=== PATIENT | male | born 1950 | race Caucasian/White ===

== ENCOUNTER 2020-08-25 07:30 | Outpatient (REF) | payer MEDICARE, SELFPAY ==
--- NOTE | 2020-08-25 07:37 | FL_ITS ---
EXAMINATION: XR FLUOROSCOPY WITH IMAGES CLINICAL INFORMATION: G89.4 - Chronic pain syndrome COMPARISON: MRI lumbar spine 08/06/2019 TECHNIQUE: Fluoroscopy performed by Michelle Suero NP. Fluoroscopy time: 0.3 minutes DAP: 2.0 Gycm2 Images: 1 FINDINGS: There is a spinal needle overlying the outer aspect left L5-S1 neural foramen. Contrast is seen in the nerve sheath with transforaminal epidural extension. There are degenerative disc changes L4-L5 and L5-S1. FL/FL guidance in treatment room IMPRESSION: Fluoroscopy for pain management procedure.
== END 2020-08-25 07:31 | disposition home or self-care (01) ==
LOC: HO.RADIR 07:30
PROVIDERS: Visit Provider Anesthesiology
DX: M51.36 Other intervertebral disc degeneration, lumbar region (principal); G89.4 Chronic pain syndrome
CPT/HCPCS: 64483; J3300; Q9967

== ENCOUNTER → 2020-10-08 09:24 | Outpatient (BNVA) | payer MEDICARE, SELFPAY | PROVIDERS: PCP Internal Medicine; Visit Provider Anesthesiology | DX: M47.817 Spondylosis without myelopathy or radiculopathy, lumbosacral region (principal); G89.4 Chronic pain syndrome | CPT/HCPCS: Q3014 ==

== ENCOUNTER 2020-11-09 13:22 | Emergency (ER) | payer MEDICARE, SELFPAY ==
--- NOTE | ~2020-11-09 | XR_ITS ---
EXAMINATION: XR CHEST XR PELVIS AND HIP, LEFT XR KNEE, LEFT CLINICAL INFORMATION: Fall with hip pain. COMPARISON: Chest radiograph 03/17/2015, left hip 02/20/2017. TECHNIQUE: Single view chest, 2 views left knee, single view pelvis with 3 additional views left hip. FINDINGS: CHEST: Once again seen are findings consistent with extensive emphysema. New since the prior study is a thickened linear density seen in the right upper lobe laterally. A mass lesion in this area cannot be excluded. The heart size is normal. LEFT KNEE: No effusion is present. No traumatic injury is seen. Vascular calcifications are present. LEFT HIP: There is a left femoral neck fracture with superior subluxation of the distal fracture fragment with some varus angulation. No other associated fractures are seen. Marked degenerative changes present in the lower visualized spine. Mild degenerative changes present at the hip joints. Extensive vascular calcifications are seen. XR/XR knee LT 2V IMPRESSION: 1. Left femoral neck fracture as described above. 2. Severe COPD with new opacity in the right upper lobe laterally. CT is recommended for further evaluation.
--- NOTE | ~2020-11-09 | XR_ITS ---
EXAMINATION: XR CHEST XR PELVIS AND HIP, LEFT XR KNEE, LEFT CLINICAL INFORMATION: Fall with hip pain. COMPARISON: Chest radiograph 03/17/2015, left hip 02/20/2017. TECHNIQUE: Single view chest, 2 views left knee, single view pelvis with 3 additional views left hip. FINDINGS: CHEST: Once again seen are findings consistent with extensive emphysema. New since the prior study is a thickened linear density seen in the right upper lobe laterally. A mass lesion in this area cannot be excluded. The heart size is normal. LEFT KNEE: No effusion is present. No traumatic injury is seen. Vascular calcifications are present. LEFT HIP: There is a left femoral neck fracture with superior subluxation of the distal fracture fragment with some varus angulation. No other associated fractures are seen. Marked degenerative changes present in the lower visualized spine. Mild degenerative changes present at the hip joints. Extensive vascular calcifications are seen. XR/XR chest 1V IMPRESSION: 1. Left femoral neck fracture as described above. 2. Severe COPD with new opacity in the right upper lobe laterally. CT is recommended for further evaluation.
--- NOTE | ~2020-11-09 | XR_ITS ---
EXAMINATION: XR CHEST XR PELVIS AND HIP, LEFT XR KNEE, LEFT CLINICAL INFORMATION: Fall with hip pain. COMPARISON: Chest radiograph 03/17/2015, left hip 02/20/2017. TECHNIQUE: Single view chest, 2 views left knee, single view pelvis with 3 additional views left hip. FINDINGS: CHEST: Once again seen are findings consistent with extensive emphysema. New since the prior study is a thickened linear density seen in the right upper lobe laterally. A mass lesion in this area cannot be excluded. The heart size is normal. LEFT KNEE: No effusion is present. No traumatic injury is seen. Vascular calcifications are present. LEFT HIP: There is a left femoral neck fracture with superior subluxation of the distal fracture fragment with some varus angulation. No other associated fractures are seen. Marked degenerative changes present in the lower visualized spine. Mild degenerative changes present at the hip joints. Extensive vascular calcifications are seen. XR/XR hip LT w PEL1V IMPRESSION: 1. Left femoral neck fracture as described above. 2. Severe COPD with new opacity in the right upper lobe laterally. CT is recommended for further evaluation.
[2020-11-09 15:50] VITALS: BP 141/82; PULSE 83; RESP 18; TEMP 36.5; O2SAT 100; BMI 17.2
--- NOTE | 2020-11-09 18:48 | ED.FALL ---
HPI - Fall General Chief Complaint: Fall Stated Complaint: feet/ankle pain/swelling Time Seen by Provider: 11/09/20 16:24 Source: patient Mode of arrival: wheelchair Limitations: no limitations History of Present Illness HPI Narrative: 69-year-old male with a past medical history of hypertension, degenerative disc disease of the lumbar spine, chronic pain syndrome and knee arthritis presenting to the ED with left hip pain after his leg gave out 3 weeks ago when he was in his kitchen he fell onto his left hip and since then has been having pain and has been limping. Denies head injury or loss of consciousness or being on any blood thinners. Denies any other injuries complaints or concerns at this time. complaint: fall Onset (ago): week(s) (Three weeks ago) Fall from: standing Fall witnessed: no Place fall occurred: home Loss of consciousness: none Prolonged down time: no Symptoms prior to fall: none Context: other (Due to degenerative disc of lumbar spine and chronic pain syndrome per patient) Location of injury: other (Left hip and pelvis) Related Data Home Medications Medication Instructions Recorded Confirmed gabapentin 300 mg capsule 300 mg PO TID 08/12/20 08/12/20 ibuprofen 600 mg tablet 600 mg PO TID 08/12/20 08/12/20 triamcinolone acetonide-l.s.b. 0.5 applic TOPICAL .THREE TIMES A DAY 08/12/20 08/12/20 % topical cream PRN Previous Rx's Medication Instructions Recorded diclofenac sodium 25 mg 25 mg PO DAILY #30 tab 07/29/20 tablet,delayed release lisinopril 40 mg tablet 40 mg PO DAILY #90 cap 10/04/20 tizanidine 4 mg tablet 4 mg PO TID PRN 30 Days #90 tab 10/08/20 Allergies Allergy/AdvReac Type Severity Reaction Status Date / Time codeine [CODEINE] Allergy Intermediate GI UPSET Verified 11/09/20 15:50 Penicillins [PENICILLINS] Allergy Intermediate ITCHY Verified 11/09/20 15:50 Review of Systems Review of Systems: Constitutional : No changes in activity, No lethargy, No recent prior head injury, No agitation, No increased fussiness ENT/Mouth : No Ear Pain, No Nasal discharge/drainage Eyes: No Eye Pain, No Swelling, No Redness, No Foreign Body, No Vision Changes Cardiovascular : No Chest Pain, No SOB Respiratory : No Cough Gastrointestinal : No Nausea, No Vomiting, No abdominal Pain Genitourinary : No Dysuria, No Urinary Frequency, No Urinary Incontinence, No Urgency, No Flank Pain Musculoskeletal : + joint pain, No neck stiffness, No back pain/injury Skin : No lacerations Neuro : No unsteady gait, No Paresthesias, No Loss of Consciousness, No altered mental status, No Headache Yes all other systems are reviewed and are negative [facility] Past Medical History Attestation statement: The following information was validated with the patient. Medical History Disc degeneration, lumbar Hypertension Knee osteoarthritis Spondylosis of lumbosacral region Surgical History H/O rectal polypectomy Family History Family History Father Heart failure Mother Colon cancer Maternal Aunt Skin cancer Social History Social History Alcohol intake: never Smoking Status: Former smoker Advance Directives: No Advance Directives Information Provided: Yes Physical Exam Vital Signs: Vital Signs: Last Vital Signs Temp 97.7 F 11/09/20 15:50 Pulse 83 11/09/20 15:50 Resp 18 11/09/20 15:50 BP 141/82 H 11/09/20 15:50 Pulse Ox 100 11/09/20 15:50 Body Mass Index 17.2 vital signs have been reviewed as normal and appeared to be correct. Blood pressure normal. Heart rate normal. Respiration rate normal. Temperature normal. Oxygen saturation normal. Appearance: Alert. Oriented X3. No acute distress. Head: Normal external exam. Normocephalic. Atraumatic. Eyes: PERRLA. EOMI. Conjunctiva and sclera normal. Eyelids normal. ENT: Pharynx normal. Uvula midline. Moist mucous membranes. Neck: Normal inspection. Neck supple. FROM. No adenopathy. Thyroid Normal. No meningeal signs. No neck mass noted. CVS: Normal heart rate and rhythm. Heart sound normal. No murmurs noted. Pulses normal throughout. Respiratory: No respiratory distress. Painless inspiration. Breath sounds normal. No wheezes/rales/rhonchi noted. Chest nontender. No accessory muscle usage noted or decreased air movement noted. Back: No CVA tenderness. Full range of motion noted. Skin: Skin warm and dry. Normal skin color. Normal skin turgor. No rashes/lesions/lacerations noted. Extremities: Patient with tenderness to palpation to left hip joint with limited range of motion questioning fracture. The leg is also shortened with internal rotation noted. Patient mild tenderness to palpation of left knee. No laxity noted. No obvious deformities noted. Patient has full range of motion of the left knee. No lower extremity edema. No calf tenderness noted. Otherwise all other Extremities exhibit normal range of motion and nontender. Neuro: Oriented X 3. No motor deficit. No sensory deficit. Reflexes normal. Patient has a limping gait. Course Course Course Narrative: 69-year-old male presenting to the ED with left hip pain after he fell x3 weeks ago in his kitchen denied head injury or loss of consciousness and is not on any blood thinners. Discharge Plan Discharge Clinical Impression: Closed fracture of neck of left femur, Fall, Left against medical advice, Opacity of lung on imaging study Patient Disposition: Left Against Medical Advice Instructions: Against Medical Advice (ED), Hip Fracture (ED) Additional Instructions: You have a left femoral neck hip fracture and it was recommended that you be admitted today for medical clearance and then be placed on nothing by mouth for approximately 6-12 hours so that you can have surgery to her left hip although you are refusing and requesting to leave against medical advice. You also had a chest x-ray which revealed severe COPD with a new opacity in the right upper lobe laterally they recommending a CT scan for further evaluation and treatment. Although you are refusing all labs and any further imaging and admission please follow-up with her primary care provider. I gave you the number for the orthopedic surgeon Dr. Fisher who recommended you have surgery and be admitted tonight. Call him and follow-up. Return if any new or worsening symptoms or if you decide that you want surgery. Prescriptions: No Action diclofenac sodium 25 mg tablet,delayed release (DR/EC) 25 mg PO DAILY Qty: 30 RF: 0 lisinopril 40 mg tablet 40 mg PO DAILY Qty: 90 RF: 1 ibuprofen 600 mg tablet 600 mg PO TID RF: 0 gabapentin 300 mg capsule 300 mg PO TID RF: 0 triamcinolone acetonide-l.s.b. 0.5 % cream topical .THREE TIMES A DAY PRNRF: 0 tizanidine 4 mg tablet 4 mg PO TID PRN (Reason: muscle spasticity) 30 Days Qty: 90 RF: 12 Referrals: Dimas Fisher MD [Physician] - 1 week (Call tomorrow to make a follow-up appointment within the next few weeks although it was recommended by Dr. Fisher and I that you be admitted for surgery although you refused) Interventions: ED Discharge Assessment Last Done: 11/09/20 19:28 Discharge Date/Time: 11/09/20 19:29 Print Language: Kinyarwanda
--- NOTE | 2020-11-09 19:30 | PC.NURSE ---
PT SIGNED OUT AMA AND LEFT ED IN W/C. PT UNDERSTOOD RISKS OF LEAVING AGAINST MEDICAL ADVISE. PT VERBALLY STATED PT UNDERSTOOD RISKS AND LEFT IN W/C TO WR.
== END 2020-11-09 19:29 | disposition left against medical advice (07) ==
PROVIDERS: Emergency Provider Internal Medicine; PCP Internal Medicine
DX: S72.002A Fracture of unspecified part of neck of left femur, initial encounter for closed fracture (principal); W17.89XA Other fall from one level to another, initial encounter; R91.8 Other nonspecific abnormal finding of lung field; I10 Essential (primary) hypertension; M51.36 Other intervertebral disc degeneration, lumbar region; Y93.89 Activity, other specified; Y92.010 Kitchen of single-family (private) house as the place of occurrence of the external cause; Y99.9 Unspecified external cause status
CPT/HCPCS: 71045; 73502; 73560; 99283

== ENCOUNTER → 2020-11-12 14:02 | Outpatient (BNVA) | payer MEDICARE, SELFPAY | PROVIDERS: PCP Internal Medicine; Visit Provider Orthopaedic Surgery ==

== ENCOUNTER 2020-11-12 15:11 | Inpatient (IN) | payer MEDICARE, SELFPAY ==
--- NOTE | 2020-11-12 | ECG_ITS ---
Test Reason : Pre op Blood Pressure : / mmHG Vent. Rate : 093 BPM Atrial Rate : 093 BPM P-R Int : 144 ms QRS Dur : 084 ms QT Int : 382 ms P-R-T Axes : 091 082 077 degrees QTc Int : 474 ms Sinus rhythm with Premature atrial complexes and Premature ventricular complexes Possible Left atrial enlargement Nonspecific ST abnormality Abnormal ECG No previous ECGs available Referred By: [facility] Electronically Signed By:CYRUS LINDA MD
--- NOTE | ~2020-11-12 | CT_ITS ---
EXAMINATION: CT CHEST WITHOUT CONTRAST CLINICAL INFORMATION: Right upper lobe opacity seen on recent chest radiographs, follow-up. COMPARISON: Chest radiographs dated 11/09/2020 and 03/17/2015. TECHNIQUE: Multidetector volumetric CT imaging of the chest was done. Axial MIP volume rendering provided. Sagittal and coronal reformatted images were obtained. This CT examination was performed using dose optimization techniques as appropriate, variously including the following: *Automated exposure control *Adjustment of mA and/or kV according to patient size (this includes techniques or standardized protocols for targeted exams where dose is matched to indication/reason for exam; i.e. extremities or head) *Use of iterative reconstruction technique DLP: 192 mGy-cm FINDINGS: LUNGS/PLEURA/AIRWAYS: Moderate to severe upper lobe predominant centrilobular emphysema is seen right greater than left. An irregular spiculated lesion is seen in the right apex measuring approximately 2.8 x 1.9 x 1.6 cm (image 45, series 6; image 13, series 10). A similar appearing subpleural lesion is seen laterally extending to the adjacent minor and major fissures.. A central component measures approximately 3.1 x 1.7 x 2.4 cm (image 25, series 6; image 29, series 10). A smaller, more linear appearing lesion posterior medially in the right upper lobe at the level the major fissure measures approximately 2.2 x 1.5 x 0.9 cm (image 51, series 6; image 30, series 10). An irregular curvilinear lesion is seen anterolaterally in the left upper lobe (image 29, series 10; image 23, series 6). Linear scarring/atelectasis is seen inferiorly in the lingula as well as at the lung bases. There are no pleural effusions. The airways are patent. MEDIASTINUM: The thyroid gland is unremarkable. Mild to moderate atherosclerosis is seen in the thoracic aorta. The ascending aorta measures up to 4.0 cm in AP dimension (image 37, series 3). No mediastinal or hilar lymphadenopathy. Moderate to severe coronary artery calcifications. No pericardial effusions. AXILLA: No lymphadenopathy. UPPER ABDOMEN: Unremarkable. OSSEOUS STRUCTURES: Generalized osteopenia and mild to severe multilevel degenerative disc disease. Increased thoracic kyphosis. No acute or suspicious abnormality. CT/CT chest wo con IMPRESSION: 1. Irregular spiculated lesions in the upper lobes as detailed above are nonspecific. This could represent chronic scarring/atelectasis, but malignancy cannot be excluded. The findings in the right upper lobe correlate with recent radiographic findings. Further evaluation with a PET CT scan is recommended. 2. Dilatation of the ascending aorta up to 4.0 cm.
--- NOTE | ~2020-11-12 | XR_ITS ---
EXAMINATION: XR PELVIS CLINICAL INFORMATION: Status post left hip hemiarthroplasty COMPARISON: 11/09/2020 TECHNIQUE: AP view of the pelvis. FINDINGS: The patient has undergone interval left hip hemiarthroplasty. Hardware appears well seated. There are expected postoperative changes including soft tissue gas and overlying skin vince. Mild to moderate degenerative arthrosis of the right hip is present. No fractures of the visualized pubic rami. XR/XR pelvis 1-2V IMPRESSION: Expected postoperative appearance status post left hip hemiarthroplasty.
[2020-11-12 16:00] VITALS: BP 180/78; PULSE 98; RESP 18; TEMP 36.9; O2SAT 98
[2020-11-12 16:15] VITALS: BMI 17.2
[2020-11-12 16:25] LABS: COVID-19 Test Negative (Negative); IDNOW Serial# 9DD0AD1C
--- NOTE | 2020-11-12 17:41 | P.CONIM_ITS ---
History of Present Illness Data of Consult Service Date: 11/12/20 Requesting physician: Dimas Fisher Primary Care Provider: Yasir Ibarra MD HPI Reason for consult: Pre op evaluation 69 year male with HTN who about 3 weeks ago sustained a fall on his left hip when his leg gave out. He has been having steady pain since and could not take it anymore so he came to the ED on and was advised admission and operative repair but left AMA, citing they didn't treat me right . He saw orthopedist in [place] today and was directly admitted. He has has pain in the left hip. No prior major surgery, no chest pain and reported no PENA, however he notes swelling in the legs that are chronic. Xray on 11/09/20 showed a left femoral neck fracture. CXR on 11/09/20 showed new opacity of left upper lobe. CT was recommended. There is no ECG on record. Review of Systems Review of Systems: Gen: no fever Resp: no sob, no cough CV: no chest, no PENA, no leg edema GI: No n/v, no abd pain Neuro: No confusion [place]: left hip pain [facility] Medical History (Updated 11/13/20 @ 09:18 by Chin Koch MD) COPD (chronic obstructive pulmonary disease) Disc degeneration, lumbar Hypertension Knee osteoarthritis Pulmonary nodule Spondylosis of lumbosacral region Functional capacity: independent ambulation Family History Father Heart failure Mother Colon cancer Maternal Aunt Skin cancer Surgical History H/O rectal polypectomy Social History Household Members: Spouse Housing: House Do you presently have visiting nurse or other home services: No Alcohol intake: never Smoking Status: Current every day smoker Tobacco Type: Cigarette Cigarettes Per Day: 12 Years Smoked: 50 Smoked in Last 30 Days: Yes Patient Interested in Nicotine Replacement: Yes Patient Given Instructions on How to Stop Smoking: No Use of substances other than those prescribed or required for medical reasons: No Have you been hit, kicked, punched, or otherwise hurt by someone within the past year? If so, by whom?: No Do you feel safe in your current relationship?: Yes Is there a partner from a previous relationship who is making you feel unsafe now?: No Are you made to feel afraid or neglected: No [facility] Practices: [employer], if needed, wants a Lacrosse Coach to give him his last rights. Advance Directives: No Advance Directives Information Provided: No Do you have thoughts of harming others: None Do you have a plan to hurt others: No Plan Recently lost weight without trying: Yes service: No Current occupational status: retired Meds Allergies Allergy/AdvReac Type Severity Reaction Status Date / Time codeine [CODEINE] Allergy Intermediate GI UPSET Verified 11/09/20 15:50 Penicillins [PENICILLINS] Allergy Intermediate ITCHY Verified 11/09/20 15:50 Active Medications: Current Medications Generic Name Dose Route Start Last Admin Trade Name Freq PRN Reason Stop Dose Admin Acetaminophen 325 mg 11/12/20 15:02 Acetaminophen 325 Mg Tablet PO Q4H PRN Pain, Mild (Pain Scale 1-3) Hydromorphone HCl 2 mg 11/12/20 15:02 Hydromorphone Hcl 2 Mg Tablet PO Q4H PRN Pain, Severe (Pain Scale 7-10) Cefazolin Sodium/Dextrose 2 gm in 50 mls @ 100 mls/hr 11/13/20 06:00 Ancef IV 11/13/20 23:59 PREOP [facility] Ondansetron HCl 4 mg 11/12/20 15:07 Ondansetron Hcl 4 Mg/2 Ml Vial IVPUSH Q4H PRN Nausea Oxycodone HCl 5 mg 11/12/20 15:02 Oxycodone Hcl Immed Release 5 Mg Tablet PO Q4H PRN Pain, Moderate (Pain Scale 4-6 Oxycodone HCl 10 mg 11/12/20 21:00 Oxycodone Hcl Er 10 Mg Tab.Er.12h PO BID [facility] Home Medications Medication Instructions Recorded Confirmed Last Taken Type gabapentin 300 mg capsule 300 mg PO DAILY@1700 08/12/20 11/12/20 Unknown History ibuprofen 600 mg tablet 600 mg PO TID PRN 08/12/20 11/12/20 Unknown History Physical Exam Vital Signs and Narrative: Vital Signs: Last Vital Signs Temp 98.5 F 11/12/20 16:00 Pulse 98 11/12/20 16:00 Resp 18 11/12/20 16:00 BP 180/78 H 11/12/20 16:00 Pulse Ox 98 11/12/20 16:00 Body Mass Index 17.2 Constitutional Awake and Alert, No apparent distress, cachectic Neck Supple, No lymphadenopathy Cardiovascular RRR, No M/R/G, S1 S2, No S3 S4, 2+ pedal edema Respiratory Lungs clear, No respiratory distress Gastrointestinal Non tender, Non-distended Skin No rash Neurological Alert & oriented x3 Psychological Appropriate affect Musck sk-shortenes left leg Results Labs CBC and Chem 7: 11/13/20 05:54 11/13/20 05:54 Labs: Laboratory Results - last 24 hr 11/12/20 11/12/20 15:41 Unknown COVID-19 ([facility]) Negative COVID-19 Clin Com See Note Blood Type O Positive Antibody Screen NEGATIVE Assessment and Plan (1) Knee osteoarthritis: Status: Acute (2) Spondylosis of lumbosacral region: Status: Acute (3) Disc degeneration, lumbar: Status: Acute (4) Chronic pain syndrome: Status: Acute (5) Hypertension: Status: Acute 69 male with left hip fracture 3 weeks agoa, left AMA 3 days ago, evaluated by ortho in the office and admitted now and is planned to have surgery 1. Hip fracture--before surgery, we should do an ECG, get routine labs including CBC, chemistry, if all unremarkable then should proceed to surgery 2. Leg edema--no other stigmata of heart failure--check BNP and if elevated should have an echo and cardiology evaluation before surgery 3. Left upper lobe oppacity seen on CXR 11/09/20--Should have a CT done 4. HTN--BP is high, no sure if took meds today, can give PRN hydralazine until labs are done. Reconcile meds 5. Neuropathy--Gabpentin 6. History of smoking- Nicotine patch 7. h/o alcohol use it doesn't sound like he drink too much but add CIWA 8. Mild to moderate protein caloary malnutrition--high protein diet or add ensure 9. Severe COPD--not on inhalers, smokes alot, updraft PRN, pulmonary eval prior to surgery, high risk for pulmonary complications Unless all the above recommendation labs, imaging are done and reviewed this patient is not clear for surgery
[2020-11-12] MEDS: oxyCODONE HCl Immed Release 5 MG TABLET PO (18:29)
[2020-11-12] MEDS: Nicotine 14 MG PATCH.TD24 TRANSDERMA (18:29)
[2020-11-12 18:31] VITALS: BP 156/84; PULSE 88
[2020-11-12 19:10] LABS: Hematocrit 28.9 % (42-52); Hemoglobin 10.6 g/dl (14.0-18.0); Mean Corpuscular HGB Conc 36.7 g/dl (31.0-36.0); Mean Corpuscular Hemoglobin 35.1 pg (27.0-33.0); Mean Corpuscular Volume 95.7 fL (80-98); Mean Platelet Volume 8.8 fL (9.4-12.4); Platelet Count 251 X10*3/uL (160-400); Red Blood Count 3.02 X10*6/uL (4.60-5.80); Red Cell Distribution Width 11.9 % (11.0-16.0); White Blood Count 6.9 X10*3/uL (4.8-10.8)
[2020-11-12 19:14] VITALS: BP 163/77; PULSE 89; RESP 18; TEMP 36.8; O2SAT 100
[2020-11-12 19:16] LABS: INTERNATIONAL NORM RATIO 1.1 (0.9-1.1); Prothrombin Time 12.7 SEC (10.8-13.0)
[2020-11-12 19:42] LABS: B Type Natriuretic Peptide 93 pg/mL (<100)
[2020-11-12 19:46] LABS: Anion Gap 12 (12-20); Blood Urea Nitrogen 10 mg/dL (9-16); Carbon Dioxide 26 mmol/L (22-29); Chloride 87 mmol/L (96-108); Creatinine Clr Calc Pharmacy 69.5; Estimated Glomerular Filt Rate > 60; Glucose Random 105 mg/dL (60-115); Potassium 4.4 mmol/L (3.3-5.1); Sodium 121 mmol/L (135-145)
--- NOTE | 2020-11-12 20:14 | P.EN_ITS ---
Event Note Date of Service: 11/12/20 Event Note: Received a message from nurse the patient's labs returned with a s odium of 121. Will send urine studies including urine sodium, creatinine, urine osmolality, serum osmolality, will start patient on NS. And will consult Nephrology for further management.
[2020-11-12] MEDS: 0.9 % Sodium Chloride 1,000 ML 80 ML IVCONT (20:39)
[2020-11-12] MEDS: oxyCODONE HCl ER 10 MG TAB.ER.12H PO (20:40)
[2020-11-12 20:53] LABS: Osmolality, Serum 250 mosm/kg (281-305)
[2020-11-12 22:29] LABS: Osmolality Urine 577 mosm/kg (373-1093)
[2020-11-12 22:31] LABS: Creatinine Urine 112.51 mg/dL
[2020-11-12 23:45] VITALS: BP 157/83; PULSE 80; RESP 16; TEMP 36.7; O2SAT 100
--- NOTE | 2020-11-13 00:58 | PC.NURSE ---
Pt labs were drawn at 18:30, pts sodium level was 121. DR Méndez was notified and ordered IV NS 80/hr, nephrology consult, urine for sodium creatinine and osmolality and also serum osmolality
[2020-11-13 03:06] VITALS: BP 140/66; PULSE 75; RESP 16; TEMP 36.9; O2SAT 100
[2020-11-13 06:03] LABS: MANUAL DIFF FLAG NO
[2020-11-13 06:25] LABS: Basophils Percent Auto 0.7 % (0-2); Eosinophils Absolute Auto 0.4 X10*3/uL (0.0-0.4); Eosinophils Percent Auto 7.8 % (0-4); Hematocrit 30.1 % (42-52); Hemoglobin 10.7 g/dl (14.0-18.0); Imm Gran Abs Auto 0.01 X10*3/uL (0.00-0.03); Imm Gran Pct Auto 0.2 % (0.0-0.4); Lymphocytes Absolute Auto 1.8 X10*3/uL (1.2-4.9); Lymphocytes Percent Auto 31.8 % (20-40); Mean Corpuscular HGB Conc 35.5 g/dl (31.0-36.0); Mean Corpuscular Hemoglobin 33.9 pg (27.0-33.0); Mean Corpuscular Volume 95.3 fL (80-98); Mean Platelet Volume 8.7 fL (9.4-12.4); Monocytes Absolute Auto 0.6 X10*3/uL (0.1-1.2); Monocytes Percent Auto 9.8 % (2-11); Neutrophils Absolute Auto 2.8 X10*3/uL (2.0-8.3); Neutrophils Percent Auto 49.7 % (45-73); Platelet Count 263 X10*3/uL (160-400); Red Blood Count 3.16 X10*6/uL (4.60-5.80); Red Cell Distribution Width 11.5 % (11.0-16.0); White Blood Count 5.6 X10*3/uL (4.8-10.8)
[2020-11-13 06:43] LABS: Anion Gap 12 (12-20); Blood Urea Nitrogen 8 mg/dL (9-16); Calcium 7.8 mg/dL (8.4-10.2); Carbon Dioxide 24 mmol/L (22-29); Chloride 90 mmol/L (96-108); Creatinine Clr Calc Pharmacy 77.7; Estimated Glomerular Filt Rate > 60; Glucose Random 86 mg/dL (60-115); Potassium 4.4 mmol/L (3.3-5.1); Sodium 122 mmol/L (135-145)
--- NOTE | 2020-11-13 07:30 | CA_ITS ---
Transthoracic Echocardiogram Patient (Last, First, Middle): Portillo Elliott G Gender: Male Date of : 1950 Age: 69 Procedure Date: 11/13/2020 Procedure Type: Transthoracic Echocardiogram Location: S3W Height: 177.8 cm Weight: 53.98 kg BSA: 1.67 m2 Heart Rate: bpm BP: 140 / 66 mmHg Bin Operator: BRII Delatorre MD: Mikael Holliday MD Colloid Mill Operator: Quirino Cline MD Symptoms: suspected heart failure Study Quality: Fair ECG Rhythm: Sinus Conclusions: - 1. Normal LV systolic function with impaired relaxation filling pattern 2. RV appears to be mildly enlarged but views are off axis 3. Moderate aortic stenosis 4. Moderate to severe elevation of right ventricular systolic pressure 5. No pericardial effusion Findings Left Ventricle Normal left ventricular cavity size. The left ventricular systolic function is normal. The visually estimated ejection fraction is between 55-60%. Regional wall motion abnormalities can not be excluded due to suboptimal endocardial definition. Spectral Doppler is indicative of an impaired relaxation filling pattern. E/E prime ratio is between 8 and 15 consistent with indeterminate filling pressures. Right Ventricle Mildly increased right ventricular cavity size. There is low normal right ventricular systolic function. Atria The left atrium is normal in size. Interatrial shunt cannot be excluded. The right atrium is normal in size. Aortic Valve There is moderate calcification of the aortic valve. There is moderate thickening of the aortic valve. There is moderate aortic valve stenosis. The peak aortic gradient is 25 mmHg.The mean gradient is 14 mmHg. The aortic valve area is 1.34 cm2. Mitral Valve There is mild anterior and posterior mitral leaflet thickening. There is trace mitral valve regurgitation. There is no mitral valve stenosis. Pulmonic Valve The pulmonic valve was not well visualized. Tricuspid Valve Likely normal tricuspid valve structure and function. There is mild to moderate tricuspid valve regurgitation. Normal right atrial pressure. Moderate to severe pulmonary hypertension is present. Great Vessels All visible segments of the aorta are normal in size. The pulmonary artery was not well visualized. Venous The inferior vena cava is normal in size and collapses greater than 50% with inspiration. Pericardium/Pleural There is no evidence of pericardial effusion. Prior Study Comparison No prior study available for comparison. Measurements 2D Linear Measurements IVSd: 1.03 0.6-0.9/0.6-1.0 cm LVIDd: 3.57 3.9-5.3/4.2-5.9 cm LVIDd Index: 2.14 2.4-3.2/2.2-3.1 cm/m2 LVIDs: 2.90 2.0-3.6 cm LVPWd: 1.00 0.7-1.1 cm Ao Root: 3.80 2.1-3.5 cm LA Diam: 2.40 2.7-3.8/3.0-4.0 cm LAIDs Index: 1.44 1.5-2.3 cm/m2 LV Mass: 135.32 67-162/88-224 g LV Mass Index: 81.03 43-95/49-115 g/m2 LVOT Diam: 2.00 3.0+(-)1.3 cm Mitral Valve MV Pk E: 0.55 MV PK A: 0.70 MV Decel Time: 167.00 E/A: 0.80 PHT: 49.00 MVA PHT: 4.49 Decel [place]: 3.29 Aortic Valve AoV Pk Jovanni: 2.51 AoV Mn Jovanni: 1.71 AoV VTI: 0.48 AoV Pk Grad: 25.00 Aov Mn Grad: 14.00 ALICE Cont.VTI: 1.34 LVOT LVOT Pk Jovanni: 0.97 LVOT Mn Jovanni: 0.64 LVOT VTI: 0.20 LVOT Pk Grad: 4.00 LVOT Mn Grad: 2.00 LVOT Diam: 2.00 LVOT Area: 3.14 Diastolic Function MV Pk E: 0.55 MV Pk A: 0.70 E/A: 0.80 Tricuspid Valve TR Pk Jovanni: 3.76 TR Pk Grad: 57.00 RA Press: 3.00 RVSP: 60.00 Great Vessels Aorta Ao Root-2D: 3.80 2.0-3.7 cm Ao Asc: 3.60 2.1-3.4 cm Updated in Other Vendor System with Status of Final Quirino Cline MD electronically signed on 11/13/2020 2:28:14 PM with status of Final
[2020-11-13 07:44] VITALS: BP 166/89; PULSE 87; RESP 18; TEMP 36.9; O2SAT 100
--- NOTE | 2020-11-13 07:55 | PM.EVENT ---
Event Note Date of Service: 11/13/20 Event Note: femoral neck fracture plan for hemiarthroplasty today
[2020-11-13] MEDS: oxyCODONE HCl ER 10 MG TAB.ER.12H PO ×2 (08:31→21:29)
[2020-11-13] MEDS: 0.9 % Sodium Chloride 1,000 ML 80 ML IVCONT ×2 (08:31→21:30)
[2020-11-13] MEDS: Nicotine 21 MG PATCH.TD24 TRANSDERMA (08:32)
--- NOTE | 2020-11-13 09:08 | PM.PNNEP ---
Subjective Subjective Date of Service: 11/13/20 Physical Exam Vital Signs: Vital Signs: Last Vital Signs Temp 98.4 F 11/13/20 07:44 Pulse 87 11/13/20 07:44 Resp 18 11/13/20 07:44 BP 166/89 H 11/13/20 07:44 Pulse Ox 100 11/13/20 07:44 Body Mass Index 17.2 Objective Data Labs CBC & Chem 7: 11/13/20 05:54 11/13/20 05:54 Labs: Laboratory Results - last 24 hr 11/12/20 11/12/20 11/12/20 15:41 18:30 18:30 WBC 6.9 RBC 3.02 L Hgb 10.6 L Hct 28.9 L MCV 95.7 MCH 35.1 H MCHC 36.7 H RDW 11.9 Plt Count 251 MPV 8.8 L Immature Gran % (Auto) Neut % (Auto) Lymph % (Auto) [place] % (Auto) Eos % (Auto) Baso % (Auto) Lymph # (Auto) [place] # (Auto) Eos # (Auto) Baso # (Auto) Abs Immat Gran (auto) Absolute Neuts (auto) Absolute Nucleated RBC 0.000 Nucleated RBC % (auto) 0.0 PT INR Sodium 121 L Potassium 4.4 Chloride 87 L Carbon Dioxide 26 Anion Gap 12 BUN 10 Creatinine 0.76 Estim Creat Clear Calc 69.5 Estimated GFR > 60 Random Glucose 105 Osmolality Calcium 8.0 L B-Natriuretic Peptide Urine Osmolality Ur Random Sodium Urine Creatinine COVID-19 ([facility]) COVID-19 [facility] Blood Type O Positive Antibody Screen NEGATIVE 11/12/20 11/12/20 11/12/20 18:30 18:30 18:30 WBC RBC Hgb Hct MCV MCH MCHC RDW Plt Count MPV Immature Gran % (Auto) Neut % (Auto) Lymph % (Auto) [place] % (Auto) Eos % (Auto) Baso % (Auto) Lymph # (Auto) [place] # (Auto) Eos # (Auto) Baso # (Auto) Abs Immat Gran (auto) Absolute Neuts (auto) Absolute Nucleated RBC Nucleated RBC % (auto) PT 12.7 INR 1.1 Sodium Potassium Chloride Carbon Dioxide Anion Gap BUN Creatinine Estim Creat Clear Calc Estimated GFR Random Glucose Osmolality 250 L Calcium B-Natriuretic Peptide 93 Urine Osmolality Ur Random Sodium Urine Creatinine COVID-19 ([facility]) COVID-19 [employer] [facility] Blood Type Antibody Screen 11/12/20 11/12/20 11/12/20 21:37 21:37 Unknown WBC RBC Hgb Hct MCV MCH MCHC RDW Plt Count MPV Immature Gran % (Auto) Neut % (Auto) Lymph % (Auto) [place] % (Auto) Eos % (Auto) Baso % (Auto) Lymph # (Auto) [place] # (Auto) Eos # (Auto) Baso # (Auto) Abs Immat Gran (auto) Absolute Neuts (auto) Absolute Nucleated RBC Nucleated RBC % (auto) PT INR Sodium Potassium Chloride Carbon Dioxide Anion Gap BUN Creatinine Estim Creat Clear Calc Estimated GFR Random Glucose Osmolality Calcium B-Natriuretic Peptide Urine Osmolality 577 Ur Random Sodium 112.0 Urine Creatinine 112.51 COVID-19 ([facility]) Negative COVID-19 [employer] [facility] See Note Blood Type Antibody Screen 11/13/20 11/13/20 05:54 05:54 WBC 5.6 RBC 3.16 L Hgb 10.7 L Hct 30.1 L MCV 95.3 MCH 33.9 H MCHC 35.5 RDW 11.5 Plt Count 263 MPV 8.7 L Immature Gran % (Auto) 0.2 Neut % (Auto) 49.7 Lymph % (Auto) 31.8 [place] % (Auto) 9.8 Eos % (Auto) 7.8 H Baso % (Auto) 0.7 Lymph # (Auto) 1.8 [place] # (Auto) 0.6 Eos # (Auto) 0.4 Baso # (Auto) 0.0 Abs Immat Gran (auto) 0.01 Absolute Neuts (auto) 2.8 Absolute Nucleated RBC 0.000 Nucleated RBC % (auto) 0.0 PT INR Sodium 122 L Potassium 4.4 Chloride 90 L Carbon Dioxide 24 Anion Gap 12 BUN 8 L Creatinine 0.68 Estim Creat Clear Calc 77.7 Estimated GFR > 60 Random Glucose 86 Osmolality Calcium 7.8 L B-Natriuretic Peptide Urine Osmolality Ur Random Sodium Urine Creatinine COVID-19 ([facility]) COVID-19 [employer] [facility] Blood Type Antibody Screen Assessment & Plan Assessment and plan (1) Hyponatremia: Status: Acute Assessment and Plan: Pt seen and examined Probably has non Osmotic ADH release leading to hyponatremia Work up ordered Consul dictated No absolute contraindication for hip surgery from a renal stand point Time Spent With Patient Time: Total time spent is greater than 50% in coordination of care (as documented) at patient's floor/unit and/or counseling patient:
--- NOTE | 2020-11-13 09:12 | PM.CNPUL ---
History of Present Illness History of Present Illness Consult date: 11/13/20 Reason for consult: COPD Chief complaint: Left Hip Fracture Narrative: The patient is a 69 year male with a history of tobacco dependency who about 3 weeks ago sustained a fall on his left hip when his leg gave out. He has been having steady pain since and could not take it anymore so he came to the ED on and was advised admission and operative repair but left AMA, citing they didn't treat me right . He saw orthopedist in off[place] today and was directly admitted. He has has pain in the left hip. No prior major surgery, no chest pain and reported no PENA, however he notes swelling in the legs that are chronic. Xray on 11/09/20 showed a left femoral neck fracture. CXR on 11/09/20 showed new opacity of left upper lobe. CT was done demonstrating a spiculated right upper lobe nodular density in addition to some areas of scarring with significant emphysema and hyperinflation of the lungs consistent with significant COPD. At this point the patient has been living in a 3 story home and he goes up a flight of stairs without any difficulties. He does not use any inhalers and he is not on oxygen. Therefore, based on his functional capacity the patient should be able to have surgery at this time. The patient understands there is increased risk from pulmonary standpoint including hypoxia, pneumonia and prolonged mechanical ventilation. At this point will optimize patient so he can undergo surgery as well as possible. Review of Systems Constitutional: Constitutional: Denies night sweats ENT: Denies change in voice, Denies mouth pain, Reports nasal congestion and Reports nasal discharge Cardiovascular: Cardiovascular: Denies chest pain and Reports dyspnea on exertion Respiratory: Respiratory: Reports cough and Reports dyspnea on exertion Gastrointestinal: Gastrointestinal: Denies abdominal pain Musculoskeletal: Musculoskeletal: Reports abnormal gait, Reports arthralgias, Reports joint swelling and Reports limited range of motion Neurologic: Denies Neuro-related abnormal movements and Reports abnormal gait Hematologic/Lymphatic: Hematologic/Lymphatic: Denies easy bleeding and Denies lymphadenopathy [facility] Past Medical History Medical History (Updated 11/13/20 @ 09:18 by Chin Koch MD) COPD (chronic obstructive pulmonary disease) Disc degeneration, lumbar Hypertension Knee osteoarthritis Pulmonary nodule Spondylosis of lumbosacral region Functional capacity: independent ambulation Family History Family History Father Heart failure Mother Colon cancer Maternal Aunt Skin cancer Surgical History Surgical History H/O rectal polypectomy Social History Social History Household Members: Spouse Housing: House Do you presently have visiting nurse or other home services: No Alcohol intake: never Smoking Status: Current every day smoker Tobacco Type: Cigarette Cigarettes Per Day: 12 Years Smoked: 50 Smoked in Last 30 Days: Yes Patient Interested in Nicotine Replacement: Yes Patient Given Instructions on How to Stop Smoking: No Use of substances other than those prescribed or required for medical reasons: No Have you been hit, kicked, punched, or otherwise hurt by someone within the past year? If so, by whom?: No Do you feel safe in your current relationship?: Yes Is there a partner from a previous relationship who is making you feel unsafe now?: No Are you made to feel afraid or neglected: No Scientologist Healthcare Practices: Uatsdin, if needed, wants a Clinical Trials Assistant to give him his last rights. Advance Directives: No Advance Directives Information Provided: No Do you have thoughts of harming others: None Do you have a plan to hurt others: No Plan Recently lost weight without trying: Yes Meds Allergies Allergy/AdvReac Type Severity Reaction Status Date / Time codeine [CODEINE] Allergy Intermediate GI UPSET Verified 11/09/20 15:50 Penicillins [PENICILLINS] Allergy Intermediate ITCHY Verified 11/09/20 15:50 Active Medications: Current Medications Generic Name Dose Route Start Last Admin Trade Name Freq PRN Reason Stop Dose Admin Acetaminophen 325 mg 11/12/20 15:02 Acetaminophen 325 Mg Tablet PO Q4H PRN Pain, Mild (Pain Scale 1-3) Gabapentin 300 mg 11/13/20 17:00 Gabapentin 300 Mg Capsule PO DAILY@1700 HIPOLITO Hydromorphone HCl 2 mg 11/12/20 15:02 Hydromorphone Hcl 2 Mg Tablet PO Q4H PRN Pain, Severe (Pain Scale 7-10) Cefazolin Sodium/Dextrose 2 gm in 50 mls @ 100 mls/hr 11/13/20 06:00 Ancef IV 11/13/20 23:59 PREOP HIPOLITO Sodium Chloride 1,000 mls @ 80 mls/hr 11/12/20 20:15 11/13/20 08:31 Ns IVCONT 80 mls/hr .[id number] HIPOLITO Administration Ibuprofen 600 mg 11/12/20 18:14 Ibuprofen 600 Mg Tablet PO TID PRN Breakthrough Pain, Mild Nicotine 21 mg 11/13/20 06:20 11/13/20 08:37 Nicotine 21 Mg Patch.Td24 TRANSDERMA Not Given DAILY HIPOLITO Ondansetron HCl 4 mg 11/12/20 15:07 Ondansetron Hcl 4 Mg/2 Ml Vial IVPUSH Q4H PRN Nausea Oxycodone HCl 5 mg 11/12/20 15:02 11/12/20 18:29 Oxycodone Hcl Immed Release 5 Mg Tablet PO 5 mg Q4H PRN Administration Pain, Moderate (Pain Scale 4-6 Oxycodone HCl 10 mg 11/12/20 21:00 11/13/20 08:31 Oxycodone Hcl Er 10 Mg Tab.Er.12h PO 10 mg BID HIPOLITO Administration Tizanidine HCl 4 mg 11/12/20 18:14 Tizanidine Hcl 4 Mg Tablet PO TID PRN muscle spasticity Home Medications Medication Instructions Recorded Confirmed Last Taken Type gabapentin 300 mg capsule 300 mg PO DAILY@1700 08/12/20 11/12/20 Unknown History ibuprofen 600 mg tablet 600 mg PO TID PRN 08/12/20 11/12/20 Unknown History Physical Exam Vital Signs: Vital Signs: Last Vital Signs Temp 98.4 F 11/13/20 07:44 Pulse 87 11/13/20 07:44 Resp 18 11/13/20 07:44 BP 166/89 H 11/13/20 07:44 Pulse Ox 100 11/13/20 07:44 Body Mass Index 17.2 Const: General: alert HENMT: General nose exam: Abnormal external nose present and Nasal discharge present Neck: Neck: Yes normal visual inspection, Yes full ROM and Yes no lymphadenopathy Chest: Chest palpation & inspection: normal inspection of the chest Resp: Auscultation: diminished lung sounds Cardio: Rate: regular rate Rhythm: regular rhythm Heart sounds: S1 normal heart sound present and S2 normal heart sound present GI: Palpation (GI): Soft to palpation and nontender Auscultation: normal bowel sounds : General: Yes no CVA tenderness Back/Spine/Pelvis: Back: no CVA tenderness Results Laboratory Findings CBC and BMP: 11/13/20 05:54 11/13/20 05:54 ABG, PT/INR, D-dimer: PT/INR, D-dimer PT 12.7 SEC (10.8-13.0) 11/12/20 18:30 INR 1.1 (0.9-1.1) 11/12/20 18:30 Abnormal lab findings: Abnormal Labs 11/12/20 11/12/20 11/12/20 18:30 18:30 18:30 RBC 3.02 L Hgb 10.6 L Hct 28.9 L MCH 35.1 H MCHC 36.7 H MPV 8.8 L Eos % (Auto) Sodium 121 L Chloride 87 L BUN Osmolality 250 L Calcium 8.0 L 11/13/20 11/13/20 05:54 05:54 RBC 3.16 L Hgb 10.7 L Hct 30.1 L MCH 33.9 H MCHC MPV 8.7 L Eos % (Auto) 7.8 H Sodium 122 L Chloride 90 L BUN 8 L Osmolality Calcium 7.8 L Assessment and Plan (1) Pre-op evaluation: Status: Acute (2) COPD (chronic obstructive pulmonary disease): Status: Acute (3) Pulmonary nodule: Status: Acute The patient does have increased risk for perioperative pulmonary complications, which include: Atelectasis, hypoxia, pneumonia and prolonged mechanical ventilation. The patient at this point will be optimized with bronchodilator therapy, the patient is able to proceed with surgery. Would recommend bronchodilator therapy pre and post surgery. Were also recommend minimizing general anesthesia to less than 4 hours if possible. Continue respiratory therapy as prescribed Tobacco cessation Patient will need a repeat CT scan of the chest or PET scan once he recovers from surgery he can follow up with Pulmonary as an outpatient and we will be able to arrange this.
--- NOTE | 2020-11-13 09:18 | MHC.CM.PN ---
pt lives c his in their home , pt uses AD c ambulation as needed at baseline and prior to this hospitalization. pt will most likely need STR. he has requested ref. be made to [facility] these refs . have been made. cm to cont. to follow.
--- NOTE | 2020-11-13 09:53 | HO.PM.IMPN ---
Subjective Subjective Date of Service: 11/13/20 Interval History: Seen in f/u hip fracture, hyponatremia Review of Systems Gen: no fever Resp: no sob, no cough CV: no chest, no PENA, no leg edema GI: No n/v, no abd pain Neuro: No confusion MuSk: sore in the left hip Physical Exam Vital Signs: Vital Signs: Last Vital Signs Temp 98.4 F 11/13/20 07:44 Pulse 87 11/13/20 07:44 Resp 18 11/13/20 07:44 BP 166/89 H 11/13/20 07:44 Pulse Ox 100 11/13/20 07:44 Body Mass Index 17.2 General: AO X 3, no acute distress Resp: CTA bilateral CVS: S1,S2,RRR GI: +BS, NT, no distention Skin: No rash Neuro: motor grossly intact Psych: appropriate affect MusSK:slightly shortened left leg Objective Data Current Medications Generic Name Dose Route Start Last Admin Trade Name Freq PRN Reason Stop Dose Admin Acetaminophen 325 mg 11/12/20 15:02 Acetaminophen 325 Mg Tablet PO Q4H PRN Pain, Mild (Pain Scale 1-3) Gabapentin 300 mg 11/13/20 17:00 Gabapentin 300 Mg Capsule PO DAILY@1700 HIPOLITO Hydromorphone HCl 2 mg 11/12/20 15:02 Hydromorphone Hcl 2 Mg Tablet PO Q4H PRN Pain, Severe (Pain Scale 7-10) Cefazolin Sodium/Dextrose 2 gm in 50 mls @ 100 mls/hr 11/13/20 06:00 Ancef IV 11/13/20 23:59 PREOP HIPOLITO Sodium Chloride 1,000 mls @ 80 mls/hr 11/12/20 20:15 11/13/20 08:31 Ns IVCONT 80 mls/hr .[id number] HIPOLITO Administration Ibuprofen 600 mg 11/12/20 18:14 Ibuprofen 600 Mg Tablet PO TID PRN Breakthrough Pain, Mild Nicotine 21 mg 11/13/20 06:20 11/13/20 08:37 Nicotine 21 Mg Patch.Td24 TRANSDERMA Not Given DAILY HIPOLITO Ondansetron HCl 4 mg 11/12/20 15:07 Ondansetron Hcl 4 Mg/2 Ml Vial IVPUSH Q4H PRN Nausea Oxycodone HCl 5 mg 11/12/20 15:02 11/12/20 18:29 Oxycodone Hcl Immed Release 5 Mg Tablet PO 5 mg Q4H PRN Administration Pain, Moderate (Pain Scale 4-6 Oxycodone HCl 10 mg 11/12/20 21:00 11/13/20 08:31 Oxycodone Hcl Er 10 Mg Tab.Er.12h PO 10 mg BID HIPOLITO Administration Tizanidine HCl 4 mg 11/12/20 18:14 Tizanidine Hcl 4 Mg Tablet PO TID PRN muscle spasticity Labs CBC & Chem 7: 11/13/20 05:54 11/13/20 05:54 Assessment and Plan (1) Knee osteoarthritis: Status: Acute (2) Spondylosis of lumbosacral region: Status: Acute (3) Disc degeneration, lumbar: Status: Acute (4) Chronic pain syndrome: Status: Acute (5) Hypertension: Status: Acute Assessment and Plan: 69 male with left hip fracture 3 weeks agoa, left AMA 3 days ago, evaluated by ortho in the office and admitted now and is planned to have surgery 1. Hip fracture--ECG shows no ischemia, no evidence of heart failure, no dyspnea of exertion. Echo is pending but doesn't need further cardiac testing before surgery 2. Leg edema--no other stigmata of heart failure--normal BNP, likely from nutritional status, low albumin state 3. Left upper lobe oppacity seen on CXR 11/09/20--CT shows spiculated lession will need repet CT and or PET. Dr. Rowland recommends outpatient fullow up with pulmonary clinic after surgery 4. HTN--BP is high, no sure if took meds today -resume Lisinopril 5. Neuropathy--Gabpentin 6. History of smoking- Nicotine patch 7. h/o alcohol use it doesn't sound like he drink too much but, continue CIWA -folic and thiamine x 3 days 8. Mild to moderate protein caloary malnutrition--high protein diet or add ensure 9. Severe COPD but no exacerbation--not on inhalers, smokes alot, updraft PRN, pulmonary recommends inhalers pre and post surgery 10. Hyponatemia--122 today, DDx: lung mass, excess water intake... Nedds further w/u by Nephrology. Surgery should wait until Sodium is corrected.
[2020-11-13 12:00] VITALS: BP 123/60; PULSE 88; TEMP 36.6; O2SAT 98
[2020-11-13 13:58] VITALS: BMI 17.2
--- NOTE | 2020-11-13 14:02 | MHC.CLN ---
PT IS MODERATELY MALNOURISHED SEE CLINICAL NUTRITION ASSESSMENT RECOMMEND ENSURE TID TO INCREASE KCALS; PT RECEPTIVE TO DRINKING CHOCOLATE FLAVOR SUPP PROVIDES 540CC FREE WATER FOR FLUID RESTRICTION-KITCHEN AWARE WILL ADD ARNOLD TO PROMOTE WOUND HEALING
[2020-11-13 15:34] VITALS: BP 122/58; PULSE 80; RESP 16; TEMP 37.3; O2SAT 98
[2020-11-13] MEDS: Gabapentin 300 MG CAPSULE PO (16:56)
[2020-11-13 20:00] VITALS: BP 146/66; PULSE 85; RESP 16; TEMP 37.7; O2SAT 95
[2020-11-13 23:23] VITALS: BP 141/73; PULSE 88; RESP 16; TEMP 38; O2SAT 93
[2020-11-14] VITALS (8 sets, daily range): BP systolic 111–168; BP diastolic 65–86; PULSE 80–92; RESP 16–20; TEMP 36.3–37.6; O2SAT 91–98
[2020-11-14] MEDS: oxyCODONE HCl Immed Release 5 MG TABLET PO (05:42)
[2020-11-14 07:14] LABS: MANUAL DIFF FLAG NO
[2020-11-14 07:24] LABS: Basophils Percent Auto 0.7 % (0-2); Eosinophils Absolute Auto 0.5 X10*3/uL (0.0-0.4); Eosinophils Percent Auto 8.4 % (0-4); Hematocrit 29.7 % (42-52); Hemoglobin 10.3 g/dl (14.0-18.0); Imm Gran Abs Auto 0.02 X10*3/uL (0.00-0.03); Imm Gran Pct Auto 0.3 % (0.0-0.4); Lymphocytes Absolute Auto 1.8 X10*3/uL (1.2-4.9); Lymphocytes Percent Auto 29.5 % (20-40); Mean Corpuscular HGB Conc 34.7 g/dl (31.0-36.0); Mean Corpuscular Hemoglobin 33.8 pg (27.0-33.0); Mean Corpuscular Volume 97.4 fL (80-98); Mean Platelet Volume 8.6 fL (9.4-12.4); Monocytes Absolute Auto 0.6 X10*3/uL (0.1-1.2); Monocytes Percent Auto 9.6 % (2-11); Neutrophils Absolute Auto 3.1 X10*3/uL (2.0-8.3); Neutrophils Percent Auto 51.5 % (45-73); Platelet Count 235 X10*3/uL (160-400); Red Blood Count 3.05 X10*6/uL (4.60-5.80); Red Cell Distribution Width 12.1 % (11.0-16.0); White Blood Count 5.9 X10*3/uL (4.8-10.8)
[2020-11-14 07:44] LABS: Anion Gap 11 (12-20); Blood Urea Nitrogen 6 mg/dL (9-16); Calcium 7.8 mg/dL (8.4-10.2); Carbon Dioxide 24 mmol/L (22-29); Chloride 95 mmol/L (96-108); Creatinine Clr Calc Pharmacy 85.3; Estimated Glomerular Filt Rate > 60; Glucose Random 90 mg/dL (60-115); Potassium 3.8 mmol/L (3.3-5.1); Sodium 126 mmol/L (135-145)
[2020-11-14] MEDS: Nicotine 21 MG PATCH.TD24 TRANSDERMA (08:14)
[2020-11-14] MEDS: oxyCODONE HCl ER 10 MG TAB.ER.12H PO ×2 (08:14→20:17)
[2020-11-14] MEDS: 0.9 % Sodium Chloride 1,000 ML 80 ML IVCONT (08:18)
--- NOTE | 2020-11-14 09:57 | PM.EVENT ---
Event Note Date of Service: 11/14/20 Event Note: Patient NA 126 -cleared to proceed with Hemiarthroplasty tomorrow -NPO after midnight
--- NOTE | 2020-11-14 12:02 | HO.PM.IMPN ---
Subjective Subjective Date of Service: 11/14/20 Interval History: the patient was seen and evaluated this morning Laying in bed, feels comfortable, hip pain under control Denies any fever, chills or shortness of breath No reported other overnight events. Systemic review: No fever, chills or weakness No chest pain, palpitation No shortness of breath or coughing No abdominal pain, nausea or vomiting No urinary symptoms No any rash or wounds Physical Exam Vital Signs: Vital Signs: Last Vital Signs Temp 97.6 F 11/14/20 11:07 Pulse 80 11/14/20 11:07 Resp 17 11/14/20 11:07 BP 122/67 11/14/20 11:07 Pulse Ox 93 11/14/20 11:07 Body Mass Index 17.2 Const: Other: Constitutional : Alert, oriented, not in distress Neck : Normal inspection, Supple Cardiovascular : RRR, S1 S2, no lower extremity edema Respiratory : Good bilateral air entry, no crackles, wheezes or rhonchi Gastrointestinal: soft, lax, Normal bowel sounds, Non tender Skin : Warm/Dry, No rash Muscular; Left hip fracture, externally rotated Neurological : Alert & oriented x3, No focal deficit Objective Data Current Medications Generic Name Dose Route Start Last Admin Trade Name Freq PRN Reason Stop Dose Admin Acetaminophen 325 mg 11/12/20 15:02 11/14/20 00:00 Acetaminophen 325 Mg Tablet PO 325 mg Q4H PRN Administration Pain, Mild (Pain Scale 1-3) Gabapentin 300 mg 11/13/20 17:00 11/13/20 16:56 Gabapentin 300 Mg Capsule PO 300 mg DAILY@1700 HIPOLITO Administration Hydromorphone HCl 2 mg 11/12/20 15:02 Hydromorphone Hcl 2 Mg Tablet PO Q4H PRN Pain, Severe (Pain Scale 7-10) Sodium Chloride 1,000 mls @ 80 mls/hr 11/12/20 20:15 11/14/20 08:18 Ns IVCONT 80 mls/hr .[id number] HIPOLITO Administration Cefazolin Sodium/Dextrose 2 gm in 50 mls @ 100 mls/hr 11/15/20 08:56 Ancef IV 11/15/20 09:25 PREOP ONE Ibuprofen 600 mg 11/12/20 18:14 Ibuprofen 600 Mg Tablet PO TID PRN Breakthrough Pain, Mild Nicotine 21 mg 11/13/20 06:20 11/14/20 08:14 Nicotine 21 Mg Patch.Td24 TRANSDERMA 21 mg DAILY HIPOLITO Administration Ondansetron HCl 4 mg 11/12/20 15:07 Ondansetron Hcl 4 Mg/2 Ml Vial IVPUSH Q4H PRN Nausea Oxycodone HCl 5 mg 11/12/20 15:02 11/14/20 05:42 Oxycodone Hcl Immed Release 5 Mg Tablet PO 5 mg Q4H PRN Administration Pain, Moderate (Pain Scale 4-6 Oxycodone HCl 10 mg 11/12/20 21:00 11/14/20 08:14 Oxycodone Hcl Er 10 Mg Tab.Er.12h PO 10 mg BID HIPOLITO Administration Tizanidine HCl 4 mg 11/12/20 18:14 Tizanidine Hcl 4 Mg Tablet PO TID PRN muscle spasticity Labs CBC & Chem 7: 11/14/20 07:02 11/14/20 07:02 Assessment and Plan (1) Knee osteoarthritis: Status: Acute (2) Spondylosis of lumbosacral region: Status: Acute (3) Disc degeneration, lumbar: Status: Acute (4) Chronic pain syndrome: Status: Acute (5) Hypertension: Status: Acute Assessment and Plan: 69 male with left hip fracture 3 weeks agoa, left AMA 3 days ago, evaluated by ortho in the office and admitted now and is planned to have surgery Hyponatemia 126 today continue IVF DDx: lung mass, SIADH? Nephrology input appreciated, work up ordered Left Hip fracture Per orthopedic team doesn't need further cardiac testing before surgery Leg edema no other stigmata of heart failure normal BNP, likely from nutritional status, low albumin state Left upper lobe oppacity seen on CXR 11/09/20 CT shows spiculated lession will need repet CT and or PET. Dr. Rowland recommends outpatient fullow up with pulmonary clinic after surgery HTN Better controlled today resume Lisinopril Neuropathy--Gabpentin History of smoking- Nicotine patch h/o alcohol use continue CIWA folic and thiamine x 3 days Mild to moderate protein caloary malnutrition high protein diet or add ensure Severe COPD no exacerbation not on inhalers, smokes alot updraft PRN pulmonary recommends inhalers pre and post surgery DVT PPx SCDs
[2020-11-14 15:29] LABS: Anion Gap 9 (12-20); Blood Urea Nitrogen 7 mg/dL (9-16); Carbon Dioxide 29 mmol/L (22-29); Chloride 95 mmol/L (96-108); Creatinine Clr Calc Pharmacy 78.9; Estimated Glomerular Filt Rate > 60; Glucose Random 96 mg/dL (60-115); Potassium 3.8 mmol/L (3.3-5.1); Sodium 129 mmol/L (135-145)
[2020-11-14] MEDS: Gabapentin 300 MG CAPSULE PO (16:13)
[2020-11-14 18:29] LABS: Anion Gap 9 (12-20); Blood Urea Nitrogen 8 mg/dL (9-16); Carbon Dioxide 28 mmol/L (22-29); Chloride 94 mmol/L (96-108); Creatinine Clr Calc Pharmacy 82.6; Estimated Glomerular Filt Rate > 60; Glucose Random 119 mg/dL (60-115); Potassium 3.9 mmol/L (3.3-5.1); Sodium 127 mmol/L (135-145)
--- NOTE | 2020-11-14 19:31 | PM.PNNEP ---
Subjective Subjective Date of Service: 11/14/20 Interval history: Seen and examined. Events noted Physical Exam Vital Signs: Vital Signs: Last Vital Signs Temp 99.5 F 11/14/20 19:19 Pulse 92 11/14/20 19:19 Resp 18 11/14/20 19:19 BP 168/74 H 11/14/20 19:19 Pulse Ox 98 11/14/20 19:19 Body Mass Index 17.2 Const: Other: Constitutional : Alert, oriented, not in distress Neck : Normal inspection, Supple Cardiovascular : RRR, S1 S2, no lower extremity edema Respiratory : Good bilateral air entry, no crackles, wheezes or rhonchi Gastrointestinal: soft, lax, Normal bowel sounds, Non tender Skin : Warm/Dry, No rash Muscular; Left hip fracture, externally rotated Neurological : Alert & oriented x3, No focal deficit General: alert HENMT: General nose exam: Abnormal external nose present and Nasal discharge present Eyes: Pupils: Equal, round and reactive pupils present Neck: Neck: Yes normal visual inspection, Yes full ROM and Yes no lymphadenopathy Chest: Chest palpation & inspection: normal inspection of the chest Resp: Auscultation: diminished lung sounds Cardio: Other: Constitutional : Alert, oriented, not in distress Neck : Normal inspection, Supple Cardiovascular : RRR, S1 S2, no lower extremity edema Respiratory : Good bilateral air entry, no crackles, wheezes or rhonchi Gastrointestinal: soft, lax, Normal bowel sounds, Non tender Skin : Warm/Dry, No rash Muscular; Left hip fracture, externally rotated Neurological : Alert & oriented x3, No focal deficit Rate: regular rate Rhythm: regular rhythm Heart sounds: S1 normal heart sound present and S2 normal heart sound present GI: Palpation (GI): Soft to palpation and nontender Auscultation: normal bowel sounds : General: Yes no CVA tenderness Back/Spine/Pelvis: Back: no CVA tenderness Skin: General skin exam: rashes and/or lesions noted Neuro: Cranial nerves: Yes Equal, round and reactive pupils present Objective Data Labs CBC & Chem 7: 11/14/20 07:02 11/14/20 17:42 Labs: Laboratory Results - last 24 hr 11/14/20 11/14/20 11/14/20 07:02 07:02 14:49 WBC 5.9 RBC 3.05 L Hgb 10.3 L Hct 29.7 L MCV 97.4 MCH 33.8 H MCHC 34.7 RDW 12.1 Plt Count 235 MPV 8.6 L Immature Gran % (Auto) 0.3 Neut % (Auto) 51.5 Lymph % (Auto) 29.5 [place] % (Auto) 9.6 Eos % (Auto) 8.4 H Baso % (Auto) 0.7 Lymph # (Auto) 1.8 [place] # (Auto) 0.6 Eos # (Auto) 0.5 H Baso # (Auto) 0.0 Abs Immat Gran (auto) 0.02 Absolute Neuts (auto) 3.1 Absolute Nucleated RBC 0.000 Nucleated RBC % (auto) 0.0 Sodium 126 L 129 L Potassium 3.8 3.8 Chloride 95 L 95 L Carbon Dioxide 24 29 Anion Gap 11 L 9 L BUN 6 L 7 L Creatinine 0.62 0.67 Estim Creat Clear Calc 85.3 78.9 Estimated GFR > 60 > 60 Random Glucose 90 96 Calcium 7.8 L 8.0 L 11/14/20 17:42 WBC RBC Hgb Hct MCV MCH MCHC RDW Plt Count MPV Immature Gran % (Auto) Neut % (Auto) Lymph % (Auto) [place] % (Auto) Eos % (Auto) Baso % (Auto) Lymph # (Auto) [place] # (Auto) Eos # (Auto) Baso # (Auto) Abs Immat Gran (auto) Absolute Neuts (auto) Absolute Nucleated RBC Nucleated RBC % (auto) Sodium 127 L Potassium 3.9 Chloride 94 L Carbon Dioxide 28 Anion Gap 9 L BUN 8 L Creatinine 0.64 Estim Creat Clear Calc 82.6 Estimated GFR > 60 Random Glucose 119 H Calcium 8.0 L Assessment & Plan Assessment and plan (1) Knee osteoarthritis: Status: Acute (2) Spondylosis of lumbosacral region: Status: Acute (3) Disc degeneration, lumbar: Status: Acute (4) Chronic pain syndrome: Status: Acute (5) Hypertension: Status: Acute Assessment and Plan: 69 male with left hip fracture 3 weeks agoa, left AMA 3 days ago, evaluated by ortho in the office and admitted now and is planned to have surgery Euvolemic Hyponatemia: w/u c/w SIADH..ques pain related ADH vs other; need to check am cortisol and TSH to complete w/u; goalis to grad incr SN[facility] 6 to 8 meq /24 hrs contpo fluid restriction Time Spent With Patient Time: Total time spent is greater than 50% in coordination of care (as documented) at patient's floor/unit and/or counseling patient:
[2020-11-14] MEDS: Acetaminophen 325 MG TABLET PO ×2 (20:17)
[2020-11-15 03:56] VITALS: BP 144/69; PULSE 81; RESP 16; TEMP 36.2; O2SAT 97
[2020-11-15 07:39] VITALS: BP 152/74; PULSE 89; RESP 17; TEMP 36.9; O2SAT 95
[2020-11-15 07:51] LABS: Hematocrit 31.9 % (42-52); Hemoglobin 11.1 g/dl (14.0-18.0); Mean Corpuscular HGB Conc 34.8 g/dl (31.0-36.0); Mean Corpuscular Hemoglobin 33.9 pg (27.0-33.0); Mean Corpuscular Volume 97.6 fL (80-98); Mean Platelet Volume 8.7 fL (9.4-12.4); Platelet Count 265 X10*3/uL (160-400); Red Blood Count 3.27 X10*6/uL (4.60-5.80); Red Cell Distribution Width 12.2 % (11.0-16.0); White Blood Count 6.7 X10*3/uL (4.8-10.8)
[2020-11-15 08:02] LABS: Anion Gap 12 (12-20); Blood Urea Nitrogen 8 mg/dL (9-16); Calcium 8.3 mg/dL (8.4-10.2); Carbon Dioxide 26 mmol/L (22-29); Chloride 94 mmol/L (96-108); Creatinine Clr Calc Pharmacy 85.3; Estimated Glomerular Filt Rate > 60; Glucose Random 92 mg/dL (60-115); Potassium 4.3 mmol/L (3.3-5.1); Sodium 128 mmol/L (135-145)
[2020-11-15] MEDS: oxyCODONE HCl ER 10 MG TAB.ER.12H PO ×2 (09:19→20:39)
[2020-11-15] MEDS: Nicotine 21 MG PATCH.TD24 TRANSDERMA (09:19)
--- NOTE | 2020-11-15 09:53 | MHC.CM.PN ---
ACCORDING TO HOSPITALIST, PATIENT IS STILL HYPOTENSIVE. PLAN TO DC TO [facility] TOMORROW (11/16) REFERRALS UPDATED IN [facility].
--- NOTE | 2020-11-15 10:23 | HO.PM.IMPN ---
Subjective Subjective Date of Service: 11/15/20 Interval History: the patient was seen and evaluated this morning Laying in bed, feels comfortable, hip pain under control Surgery postponed until tomorrow Denies any fever, chills or shortness of breath No reported other overnight events. Systemic review: No fever, chills or weakness No chest pain, palpitation No shortness of breath or coughing No abdominal pain, nausea or vomiting No urinary symptoms No any rash or wounds Physical Exam Vital Signs: Vital Signs: Last Vital Signs Temp 98.5 F 11/15/20 07:39 Pulse 89 11/15/20 07:39 Resp 17 11/15/20 07:39 BP 152/74 H 11/15/20 07:39 Pulse Ox 95 11/15/20 07:39 Body Mass Index 17.2 Const: Other: Constitutional : Alert, oriented, not in distress Neck : Normal inspection, Supple Cardiovascular : RRR, S1 S2, no lower extremity edema Respiratory : Good bilateral air entry, no crackles, wheezes or rhonchi Gastrointestinal: soft, lax, Normal bowel sounds, Non tender Skin : Warm/Dry, No rash Muscular; Left hip fracture, externally rotated Neurological : Alert & oriented x3, No focal deficit Objective Data Current Medications Generic Name Dose Route Start Last Admin Trade Name Freq PRN Reason Stop Dose Admin Acetaminophen 325 mg 11/12/20 15:02 11/14/20 20:17 Acetaminophen 325 Mg Tablet PO 325 mg Q4H PRN Administration Pain, Mild (Pain Scale 1-3) Gabapentin 300 mg 11/13/20 17:00 11/14/20 16:13 Gabapentin 300 Mg Capsule PO 300 mg DAILY@1700 [facility] Administration Hydromorphone HCl 2 mg 11/12/20 15:02 Hydromorphone Hcl 2 Mg Tablet PO Q4H PRN Pain, Severe (Pain Scale 7-10) Ibuprofen 600 mg 11/12/20 18:14 Ibuprofen 600 Mg Tablet PO TID PRN Breakthrough Pain, Mild Nicotine 21 mg 11/13/20 06:20 11/15/20 09:19 Nicotine 21 Mg Patch.Td24 TRANSDERMA 21 mg DAILY [facility] Administration Ondansetron HCl 4 mg 11/12/20 15:07 Ondansetron Hcl 4 Mg/2 Ml Vial IVPUSH Q4H PRN Nausea Oxycodone HCl 5 mg 11/12/20 15:02 11/14/20 05:42 Oxycodone Hcl Immed Release 5 Mg Tablet PO 5 mg Q4H PRN Administration Pain, Moderate (Pain Scale 4-6 Oxycodone HCl 10 mg 11/12/20 21:00 11/15/20 09:19 Oxycodone Hcl Er 10 Mg Tab.Er.12h PO 10 mg BID [facility] Administration Tizanidine HCl 4 mg 11/12/20 18:14 Tizanidine Hcl 4 Mg Tablet PO TID PRN muscle spasticity Labs CBC & Chem 7: 11/15/20 07:25 11/15/20 07:25 Assessment and Plan (1) Knee osteoarthritis: Status: Acute (2) Spondylosis of lumbosacral region: Status: Acute (3) Disc degeneration, lumbar: Status: Acute (4) Chronic pain syndrome: Status: Acute (5) Hypertension: Status: Acute Assessment and Plan: 69 male with left hip fracture 3 weeks agoa, left AMA 3 days ago, evaluated by ortho in the office and admitted now and is planned to have surgery Hyponatemia 127 today DDx: lung mass, SIADH? DC IVF water restrection Nephrology input appreciated, work up ordered Left Hip fracture Per orthopedic team tomorrow doesn't need further cardiac testing before surgery Leg edema no other stigmata of heart failure normal BNP, likely from nutritional status, low albumin state Left upper lobe oppacity seen on CXR 11/09/20 CT shows spiculated lession will need repet CT and or PET. Dr. Rowland recommends outpatient fullow up with pulmonary clinic after surgery HTN Better controlled today resume Lisinopril Neuropathy--Gabpentin History of smoking- Nicotine patch h/o alcohol use continue CIWA folic and thiamine x 3 days Mild to moderate protein caloary malnutrition high protein diet or add ensure Severe COPD no exacerbation not on inhalers, smokes alot updraft PRN pulmonary recommends inhalers pre and post surgery DVT PPx SCDs
[2020-11-15 12:00] VITALS: BP 156/95; PULSE 91; RESP 18; TEMP 36.7; O2SAT 99
[2020-11-15] MEDS: oxyCODONE HCl Immed Release 5 MG TABLET PO (12:27)
[2020-11-15 15:30] VITALS: BP 156/93; PULSE 86; RESP 18; TEMP 36.4; O2SAT 98
[2020-11-15] MEDS: Gabapentin 300 MG CAPSULE PO (16:09)
--- NOTE | 2020-11-15 17:17 | PM.PNNEP ---
Subjective Subjective Date of Service: 11/15/20 Interval history: Seen and examined.Events noted Physical Exam Vital Signs: Vital Signs: Last Vital Signs Temp 97.5 F 11/15/20 15:30 Pulse 86 11/15/20 15:30 Resp 18 11/15/20 15:30 BP 156/93 H 11/15/20 15:30 Pulse Ox 98 11/15/20 15:30 Body Mass Index 17.2 Const: Other: Constitutional : Alert, oriented, not in distress Neck : Normal inspection, Supple Cardiovascular : RRR, S1 S2, no lower extremity edema Respiratory : Good bilateral air entry, no crackles, wheezes or rhonchi Gastrointestinal: soft, lax, Normal bowel sounds, Non tender Skin : Warm/Dry, No rash Muscular; Left hip fracture, externally rotated Neurological : Alert & oriented x3, No focal deficit General: alert HENMT: General nose exam: Abnormal external nose present and Nasal discharge present Eyes: Pupils: Equal, round and reactive pupils present Neck: Neck: Yes normal visual inspection, Yes full ROM and Yes no lymphadenopathy Chest: Chest palpation & inspection: normal inspection of the chest Resp: Auscultation: diminished lung sounds Cardio: Other: Constitutional : Alert, oriented, not in distress Neck : Normal inspection, Supple Cardiovascular : RRR, S1 S2, no lower extremity edema Respiratory : Good bilateral air entry, no crackles, wheezes or rhonchi Gastrointestinal: soft, lax, Normal bowel sounds, Non tender Skin : Warm/Dry, No rash Muscular; Left hip fracture, externally rotated Neurological : Alert & oriented x3, No focal deficit Rate: regular rate Rhythm: regular rhythm Heart sounds: S1 normal heart sound present and S2 normal heart sound present GI: Palpation (GI): Soft to palpation and nontender Auscultation: normal bowel sounds : General: Yes no CVA tenderness Back/Spine/Pelvis: Back: no CVA tenderness Skin: General skin exam: rashes and/or lesions noted Neuro: Cranial nerves: Yes Equal, round and reactive pupils present Objective Data Labs CBC & Chem 7: 11/15/20 07:25 11/15/20 07:25 Labs: Laboratory Results - last 24 hr 11/14/20 11/15/20 11/15/20 17:42 07:25 07:25 WBC 6.7 RBC 3.27 L Hgb 11.1 L Hct 31.9 L MCV 97.6 MCH 33.9 H MCHC 34.8 RDW 12.2 Plt Count 265 MPV 8.7 L Immature Gran % (Auto) Cancelled Neut % (Auto) Cancelled Lymph % (Auto) Cancelled [place] % (Auto) Cancelled Eos % (Auto) Cancelled Baso % (Auto) Cancelled Lymph # (Auto) Cancelled [place] # (Auto) Cancelled Eos # (Auto) Cancelled Baso # (Auto) Cancelled Abs Immat Gran (auto) Cancelled Absolute Neuts (auto) Cancelled Absolute Nucleated RBC 0.000 Nucleated RBC % (auto) 0.0 Sodium 127 L 128 L Potassium 3.9 4.3 Chloride 94 L 94 L Carbon Dioxide 28 26 Anion Gap 9 L 12 BUN 8 L 8 L Creatinine 0.64 0.62 Estim Creat Clear Calc 82.6 85.3 Estimated GFR > 60 > 60 Random Glucose 119 H 92 Calcium 8.0 L 8.3 L Assessment & Plan Assessment and plan (1) Knee osteoarthritis: Status: Acute (2) Spondylosis of lumbosacral region: Status: Acute (3) Disc degeneration, lumbar: Status: Acute (4) Chronic pain syndrome: Status: Acute (5) Hypertension: Status: Acute Assessment and Plan: 69 male with left hip fracture 3 weeks agoa, left AMA 3 days ago, evaluated by ortho in the office and admitted now and is planned to have surgery Euvolemic Hyponatemia: w/u c/w SIADH..ques pain related ADH vs other; need to check am cortisol and TSH to complete w/u; goalis to grad incr SN[facility] 6 to 8 meq /24 hrs cont po fluid restriction OK togo forward with ortho surg from renal standpoint Time Spent With Patient Time: Total time spent is greater than 50% in coordination of care (as documented) at patient's floor/unit and/or counseling patient:
[2020-11-15 19:36] VITALS: BP 156/58; PULSE 87; RESP 18; TEMP 36.9; O2SAT 99
--- NOTE | 2020-11-15 19:38 | PC.NURSE ---
Pt with AM BMP ordered for 11/15/20 @ 0600. Previous shift called phlebotomy at 0640 because labs had not been drawn and was told phlebotomists were all out on the floor. Phlebotomy called again by this nurse @ 0705 and was told phlebotomists would be there shortly. Patients labs drawn at 0725.
[2020-11-15] MEDS: HYDROmorphone HCl 2 MG TABLET PO (20:39)
--- NOTE | 2020-11-15 20:49 | PM.EVENT ---
Event Note Date of Service: 11/15/20 Event Note: Surgery postponed to tomorrow 11/16 due to Na < 130 -NPO after midnight -6am BMP ordered, phlebotomy notified lab draw should be priority for surgery tomorrow
[2020-11-16] VITALS: BP 108/57; PULSE 90; RESP 18; TEMP 36.8; O2SAT 94
[2020-11-16 04:00] VITALS: BP 125/68; PULSE 88; RESP 16; TEMP 36.9; O2SAT 96
[2020-11-16 06:29] LABS: MANUAL DIFF FLAG NO
[2020-11-16 06:51] LABS: Basophils Percent Auto 0.6 % (0-2); Eosinophils Absolute Auto 0.6 X10*3/uL (0.0-0.4); Eosinophils Percent Auto 7.9 % (0-4); Hematocrit 28.4 % (42-52); Hemoglobin 10.1 g/dl (14.0-18.0); Imm Gran Abs Auto 0.02 X10*3/uL (0.00-0.03); Imm Gran Pct Auto 0.3 % (0.0-0.4); Lymphocytes Absolute Auto 1.8 X10*3/uL (1.2-4.9); Lymphocytes Percent Auto 25.1 % (20-40); Mean Corpuscular HGB Conc 35.6 g/dl (31.0-36.0); Mean Corpuscular Hemoglobin 34.6 pg (27.0-33.0); Mean Corpuscular Volume 97.3 fL (80-98); Mean Platelet Volume 8.6 fL (9.4-12.4); Monocytes Absolute Auto 0.8 X10*3/uL (0.1-1.2); Monocytes Percent Auto 10.7 % (2-11); Neutrophils Absolute Auto 3.9 X10*3/uL (2.0-8.3); Neutrophils Percent Auto 55.4 % (45-73); Platelet Count 257 X10*3/uL (160-400); Red Blood Count 2.92 X10*6/uL (4.60-5.80); Red Cell Distribution Width 12.1 % (11.0-16.0)
[2020-11-16 07:13] LABS: Anion Gap 11 (12-20); Blood Urea Nitrogen 10 mg/dL (9-16); Calcium 8.4 mg/dL (8.4-10.2); Carbon Dioxide 28 mmol/L (22-29); Chloride 94 mmol/L (96-108); Creatinine Clr Calc Pharmacy 76.6; Estimated Glomerular Filt Rate > 60; Glucose Random 94 mg/dL (60-115); Potassium 5.3 mmol/L (3.3-5.1); Sodium 128 mmol/L (135-145)
[2020-11-16 07:58] VITALS: BP 131/71; PULSE 94; RESP 18; TEMP 36.8; O2SAT 96
[2020-11-16] MEDS: Nicotine 21 MG PATCH.TD24 TRANSDERMA (08:53)
[2020-11-16] MEDS: oxyCODONE HCl ER 10 MG TAB.ER.12H PO ×2 (08:53→20:27)
--- NOTE | 2020-11-16 11:09 | P.PNIM_ITS ---
Subjective Subjective Date of Service: 11/16/20 Interval History: the patient was seen and evaluated this morning Laying in bed, feels comfortable, hip pain under control, upset about post poning surgery Surgery postponed until tomorrow by anesthesia for low sodium level? Denies any fever, chills or shortness of breath No reported other overnight events. Systemic review: No fever, chills or weakness No chest pain, palpitation No shortness of breath or coughing No abdominal pain, nausea or vomiting No urinary symptoms No any rash or wounds Physical Exam Vital Signs: Vital Signs: Last Vital Signs Temp 98.2 F 11/16/20 07:58 Pulse 94 11/16/20 07:58 Resp 18 11/16/20 07:58 BP 131/71 11/16/20 07:58 Pulse Ox 96 11/16/20 07:58 Body Mass Index 17.2 Const: Other: Constitutional : Alert, oriented, not in distress Neck : Normal inspection, Supple Cardiovascular : RRR, S1 S2, no lower extremity edema Respiratory : Good bilateral air entry, no crackles, wheezes or rhonchi Gastrointestinal: soft, lax, Normal bowel sounds, Non tender Skin : Warm/Dry, No rash Muscular; Left hip fracture, externally rotated Neurological : Alert & oriented x3, No focal deficit Objective Data Current Medications Generic Name Dose Route Start Last Admin Trade Name Freq PRN Reason Stop Dose Admin Acetaminophen 325 mg 11/12/20 15:02 11/14/20 20:17 Acetaminophen 325 Mg Tablet PO 325 mg Q4H PRN Administration Pain, Mild (Pain Scale 1-3) Gabapentin 300 mg 11/13/20 17:00 11/15/20 16:09 Gabapentin 300 Mg Capsule PO 300 mg DAILY@1700 [facility] Administration Hydromorphone HCl 2 mg 11/12/20 15:02 11/15/20 20:39 Hydromorphone Hcl 2 Mg Tablet PO 2 mg Q4H PRN Administration Pain, Severe (Pain Scale 7-10) Cefazolin Sodium/Dextrose 2 gm in 50 mls @ 100 mls/hr 11/17/20 09:00 Ancef IV PREOP@0900 [facility] Ibuprofen 600 mg 11/12/20 18:14 Ibuprofen 600 Mg Tablet PO TID PRN Breakthrough Pain, Mild Nicotine 21 mg 11/13/20 06:20 11/16/20 08:53 Nicotine 21 Mg Patch.Td24 TRANSDERMA 21 mg DAILY [facility] Administration Ondansetron HCl 4 mg 11/12/20 15:07 Ondansetron Hcl 4 Mg/2 Ml Vial IVPUSH Q4H PRN Nausea Oxycodone HCl 5 mg 11/12/20 15:02 11/15/20 12:27 Oxycodone Hcl Immed Release 5 Mg Tablet PO 5 mg Q4H PRN Administration Pain, Moderate (Pain Scale 4-6 Oxycodone HCl 10 mg 11/12/20 21:00 11/16/20 08:53 Oxycodone Hcl Er 10 Mg Tab.Er.12h PO 10 mg BID [facility] Administration Sodium Polystyrene Sulfonate 15 gm 11/16/20 11:08 Sodium Polystyrene Sulfon/Sorb 15 Gm/60 Ml Oral.Susp PO 11/16/20 11:09 ONCE ONE Tizanidine HCl 4 mg 11/12/20 18:14 Tizanidine Hcl 4 Mg Tablet PO TID PRN muscle spasticity Labs CBC & Chem 7: 11/16/20 06:00 11/16/20 06:00 Assessment and Plan (1) Knee osteoarthritis: Status: Acute (2) Spondylosis of lumbosacral region: Status: Acute (3) Disc degeneration, lumbar: Status: Acute (4) Chronic pain syndrome: Status: Acute (5) Hypertension: Status: Acute Assessment and Plan: 69 male with left hip fracture 3 weeks agoa, left AMA 3 days ago, evaluated by ortho in the office and admitted now and is planned to have surgery Hyponatemia 128 today DDx: lung mass, SIADH? DC IVF water restrection Nephrology input appreciated, work up ordered, no contraindication for surgery Hyperkalemia K 5.3 give Kayxelate follow K Left Hip fracture Per orthopedic team tomorrow doesn't need further cardiac testing before surgery Leg edema no other stigmata of heart failure normal BNP, likely from nutritional status, low albumin state Left upper lobe oppacity seen on CXR 11/09/20 CT shows spiculated lession will need repet CT and or PET. Dr. Rowland recommends outpatient fullow up with pulmonary clinic after surgery HTN Better controlled today resume Lisinopril Neuropathy--Gabpentin History of smoking- Nicotine patch h/o alcohol use continue CIWA folic and thiamine x 3 days Mild to moderate protein caloary malnutrition high protein diet or add ensure Severe COPD no exacerbation not on inhalers, smokes alot updraft PRN pulmonary recommends inhalers pre and post surgery DVT PPx SCDs
[2020-11-16 11:56] VITALS: BP 138/77; PULSE 94; RESP 16; TEMP 36.9; O2SAT 97
[2020-11-16] MEDS: Sodium Polystyrene Sulfon/Sorb 15 GM/60 ML ORAL.SUSP PO (12:19)
[2020-11-16] MEDS: oxyCODONE HCl Immed Release 5 MG TABLET PO ×2 (12:27→19:28)
[2020-11-16 14:36] LABS: Anion Gap 10 (12-20); Blood Urea Nitrogen 12 mg/dL (9-16); Calcium 8.3 mg/dL (8.4-10.2); Carbon Dioxide 31 mmol/L (22-29); Chloride 92 mmol/L (96-108); Creatinine Clr Calc Pharmacy 71.4; Estimated Glomerular Filt Rate > 60; Glucose Random 101 mg/dL (60-115); Potassium 4.4 mmol/L (3.3-5.1); Sodium 129 mmol/L (135-145)
--- NOTE | 2020-11-16 15:31 | MHC.CLN ---
F/U PO INTAKE 100% DIET RX: REGULAR WITH 1200CC FR-APPROPRIATE RECOMMEND TO RE-START ENSURE TID TO INCREASE KCALS; PT RECEPTIVE TO DRINKING CHOCOLATE FLAVOR SUPP PROVIDES 540CC FREE WATER FOR FLUID RESTRICTION-KITCHEN AWARE WILL ADD ARNOLD TO [employer]OM[facility] WOUND HEALING FOLLOWING
[2020-11-16 15:49] VITALS: BP 118/71; PULSE 85; RESP 18; TEMP 36.8; O2SAT 100
[2020-11-16] MEDS: Gabapentin 300 MG CAPSULE PO (17:32)
[2020-11-16 19:18] VITALS: BP 148/73; PULSE 107; RESP 18; TEMP 36.8; O2SAT 95
[2020-11-17] VITALS (12 sets, daily range): BP systolic 109–155; BP diastolic 55–90; PULSE 69–105; RESP 16–20; TEMP 36.5–37.1; O2SAT 92–100; BMI 18.6
[2020-11-17 06:04] LABS: MANUAL DIFF FLAG NO
[2020-11-17 06:05] LABS: Basophils Absolute Auto 0.1 X10*3/uL (0.0-0.2); Basophils Percent Auto 0.7 % (0-2); Eosinophils Absolute Auto 0.8 X10*3/uL (0.0-0.4); Eosinophils Percent Auto 10.3 % (0-4); Hematocrit 31.1 % (42-52); Hemoglobin 10.9 g/dl (14.0-18.0); Imm Gran Abs Auto 0.02 X10*3/uL (0.00-0.03); Imm Gran Pct Auto 0.3 % (0.0-0.4); Lymphocytes Absolute Auto 1.9 X10*3/uL (1.2-4.9); Lymphocytes Percent Auto 26.4 % (20-40); Mean Corpuscular Hemoglobin 34.5 pg (27.0-33.0); Mean Corpuscular Volume 98.4 fL (80-98); Mean Platelet Volume 8.6 fL (9.4-12.4); Monocytes Absolute Auto 0.7 X10*3/uL (0.1-1.2); Monocytes Percent Auto 9.4 % (2-11); Neutrophils Absolute Auto 3.9 X10*3/uL (2.0-8.3); Neutrophils Percent Auto 52.9 % (45-73); Platelet Count 283 X10*3/uL (160-400); Red Blood Count 3.16 X10*6/uL (4.60-5.80); Red Cell Distribution Width 12.3 % (11.0-16.0); White Blood Count 7.4 X10*3/uL (4.8-10.8)
[2020-11-17 06:29] LABS: Anion Gap 12 (12-20); Blood Urea Nitrogen 12 mg/dL (9-16); Calcium 8.3 mg/dL (8.4-10.2); Carbon Dioxide 26 mmol/L (22-29); Chloride 93 mmol/L (96-108); Creatinine Clr Calc Pharmacy 72.4; Estimated Glomerular Filt Rate > 60; Glucose Random 86 mg/dL (60-115); Potassium 4.2 mmol/L (3.3-5.1); Sodium 127 mmol/L (135-145)
[2020-11-17] MEDS: Nicotine 21 MG PATCH.TD24 TRANSDERMA (07:56)
[2020-11-17] MEDS: oxyCODONE HCl ER 10 MG TAB.ER.12H PO ×2 (07:56→20:47)
--- NOTE | 2020-11-17 09:27 | P.CONAN_ITS ---
HPI - Anesthesia Eval Consult details Narrative: 69 M p/f hip hemiarthroplasty. Diagnosed with hyponatremia on adm ission (Na 122), treated with fluids and then water restriction without resolution beyond high 120s. Procedure has been delayed several times in anticipation of electrolyte correction. Discussed risks of proceeding with hyponatremic state including malignant arrhythmia, risk of worsening electrolyte abnormality leading to altered MS, ICU admission and mechanical ventilation, overall increased 30-day morbidity and mortality. Also discussed risks of further delaying surgery and ambulation (prolonged hospital stay, thromboembolism, delirium). Patient understands and verbalized risks of proceeding and consented to procedure without further waiting for resolution of hyponatremia. [facility] Active Problems Active Problems: All Active Problems (Updated 11/13/20 @ 09:18 by Chin Koch MD) Pulmonary nodule (Acute) COPD (chronic obstructive pulmonary disease) (Acute) Pre-op evaluation (Acute) Hyponatremia (Acute) Knee osteoarthritis (Acute) Spondylosis of lumbosacral region (Acute) Disc degeneration, lumbar (Acute) Chronic pain syndrome (Acute) Hypertension (Acute) Past Medical History Medical History COPD (chronic obstructive pulmonary disease) Disc degeneration, lumbar Hypertension Knee osteoarthritis Pulmonary nodule Spondylosis of lumbosacral region Functional capacity: independent ambulation Family History Family History Father Heart failure Mother Colon cancer Maternal Aunt Skin cancer Surgical History Surgical History H/O rectal polypectomy Social History Social History Household Members: Spouse Housing: House Do you presently have visiting nurse or other home services: No Alcohol intake: never Smoking Status: Current every day smoker Tobacco Type: Cigarette Cigarettes Per Day: 10 Years Smoked: 50 Smoked in Last 30 Days: Yes Patient Interested in Nicotine Replacement: Yes Patient Given Instructions on How to Stop Smoking: No Use of substances other than those prescribed or required for medical reasons: No Currently Displaying Signs/Symptoms of Drug Intoxication Withdrawal: No Have you been hit, kicked, punched, or otherwise hurt by someone within the past year? If so, by whom?: No Do you feel safe in your current relationship?: Yes Is there a partner from a previous relationship who is making you feel unsafe now?: No Are you made to feel afraid or neglected: No [facility] Healthcare Practices: Alev[facility], if needed, wants a Cash Control Specialist to give him his last rights. Advance Directives: No Advance Directives Information Provided: No Do you have thoughts of harming others: None Do you have a plan to hurt others: No Plan Recently lost weight without trying: No service: No Current occupational status: retired Meds Allergies Allergy/AdvReac Type Severity Reaction Status Date / Time codeine [CODEINE] Allergy Intermediate GI UPSET Verified 11/09/20 15:50 Penicillins [PENICILLINS] Allergy Intermediate ITCHY Verified 11/09/20 15:50 Active Medications: Current Medications Generic Name Dose Route Start Last Admin Trade Name Freq PRN Reason Stop Dose Admin Acetaminophen 325 mg 11/12/20 15:02 11/14/20 20:17 Acetaminophen 325 Mg Tablet PO 325 mg Q4H PRN Administration Pain, Mild (Pain Scale 1-3) Gabapentin 300 mg 11/13/20 17:00 11/16/20 17:32 Gabapentin 300 Mg Capsule PO 300 mg DAILY@1700 [facility]OL[facility]O Administration Hydromorphone HCl 2 mg 11/12/20 15:02 11/15/20 20:39 Hydromorphone Hcl 2 Mg Tablet PO 2 mg Q4H PRN Administration Pain, Severe (Pain Scale 7-10) Cefazolin Sodium/Dextrose 2 gm in 50 mls @ 100 mls/hr 11/17/20 09:00 Ancef IV PREOP@0900 HIPOL[facility] Ibuprofen 600 mg 11/12/20 18:14 Ibuprofen 600 Mg Tablet PO TID PRN Breakthrough Pain, Mild Nicotine 21 mg 11/13/20 06:20 11/17/20 07:56 Nicotine 21 Mg Patch.Td24 TRANSDERMA 21 mg DAILY HIPOL[facility]O Administration Ondansetron HCl 4 mg 11/12/20 15:07 Ondansetron Hcl 4 Mg/2 Ml Vial IVPUSH Q4H PRN Nausea Oxycodone HCl 5 mg 11/12/20 15:02 11/16/20 19:28 Oxycodone Hcl Immed Release 5 Mg Tablet PO 5 mg Q4H PRN Administration Pain, Moderate (Pain Scale 4-6 Oxycodone HCl 10 mg 11/12/20 21:00 11/17/20 07:56 Oxycodone Hcl Er 10 Mg Tab.Er.12h PO 10 mg BID HIPOL[facility]O Administration Tizanidine HCl 4 mg 11/12/20 18:14 Tizanidine Hcl 4 Mg Tablet PO TID PRN muscle spasticity Home Medications Medication Instructions Recorded Confirmed Last Taken Type gabapentin 300 mg capsule 300 mg PO DAILY@1700 08/12/20 11/12/20 Unknown History ibuprofen 600 mg tablet 600 mg PO TID PRN 08/12/20 11/12/20 Unknown History Exam Exam Date and Time: November 17, [id number] Height,Weight and Vital Signs: Height 5 ft 10 in Weight 54.4 kg Last Vital Signs Temp 97.7 F 11/17/20 08:00 Pulse 74 11/17/20 08:00 Resp 18 11/17/20 08:00 BP 118/75 11/17/20 08:00 Pulse Ox 97 11/17/20 08:00 Pertinent Lab Results Pertinent Lab Results: Laboratory Tests 11/12/20 11/12/20 11/12/20 15:41 18:30 18:30 WBC 6.9 RBC 3.02 L Hgb 10.6 L Hct 28.9 L MCV 95.7 MCH 35.1 H MCHC 36.7 H RDW 11.9 Plt Count 251 MPV 8.8 L Immature Gran % (Auto) Neut % (Auto) Lymph % (Auto) [place] % (Auto) Eos % (Auto) Baso % (Auto) Lymph # (Auto) [place] # (Auto) Eos # (Auto) Baso # (Auto) Abs Immat Gran (auto) Absolute Neuts (auto) Absolute Nucleated RBC 0.000 Nucleated RBC % (auto) 0.0 PT INR Sodium 121 L Potassium 4.4 Chloride 87 L Carbon Dioxide 26 Anion Gap 12 BUN 10 Creatinine 0.76 Estim Creat Clear Calc 69.5 Estimated GFR > 60 Random Glucose 105 Osmolality Calcium 8.0 L B-Natriuretic Peptide Urine Osmolality Ur Random Sodium Urine Creatinine COVID-19 ([facility]ENCER) COVID-19 Clin Com Blood Type O Positive Antibody Screen NEGATIVE 11/12/20 11/12/20 11/12/20 18:30 18:30 18:30 WBC RBC Hgb Hct MCV MCH MCHC RDW Plt Count MPV Immature Gran % (Auto) Neut % (Auto) Lymph % (Auto) [place] % (Auto) Eos % (Auto) Baso % (Auto) Lymph # (Auto) [place] # (Auto) Eos # (Auto) Baso # (Auto) Abs Immat Gran (auto) Absolute Neuts (auto) Absolute Nucleated RBC Nucleated RBC % (auto) PT 12.7 INR 1.1 Sodium Potassium Chloride Carbon Dioxide Anion Gap BUN Creatinine Estim Creat Clear Calc Estimated GFR Random Glucose Osmolality 250 L Calcium B-Natriuretic Peptide 93 Urine Osmolality Ur Random Sodium Urine Creatinine COVID-19 ([facility]ENCER) COVID-19 Clin Com Blood Type Antibody Screen 11/12/20 11/12/20 11/12/20 21:37 21:37 Unknown WBC RBC Hgb Hct MCV MCH MCHC RDW Plt Count MPV Immature Gran % (Auto) Neut % (Auto) Lymph % (Auto) [place] % (Auto) Eos % (Auto) Baso % (Auto) Lymph # (Auto) [place] # (Auto) Eos # (Auto) Baso # (Auto) Abs Immat Gran (auto) Absolute Neuts (auto) Absolute Nucleated RBC Nucleated RBC % (auto) PT INR Sodium Potassium Chloride Carbon Dioxide Anion Gap BUN Creatinine Estim Creat Clear Calc Estimated GFR Random Glucose Osmolality Calcium B-Natriuretic Peptide Urine Osmolality 577 Ur Random Sodium 112.0 Urine Creatinine 112.51 COVID-19 ([facility]) Negative COVID-[employer] See Note Blood Type Antibody Screen 11/13/20 11/13/20 11/14/20 05:54 05:54 07:02 WBC 5.6 5.9 RBC 3.16 L 3.05 L Hgb 10.7 L 10.3 L Hct 30.1 L 29.7 L MCV 95.3 97.4 MCH 33.9 H 33.8 H MCHC 35.5 34.7 RDW 11.5 12.1 Plt Count 263 235 MPV 8.7 L 8.6 L Immature Gran % (Auto) 0.2 0.3 Neut % (Auto) 49.7 51.5 Lymph % (Auto) 31.8 29.5 [place] % (Auto) 9.8 9.6 Eos % (Auto) 7.8 H 8.4 H Baso % (Auto) 0.7 0.7 Lymph # (Auto) 1.8 1.8 [place] # (Auto) 0.6 0.6 Eos # (Auto) 0.4 0.5 H Baso # (Auto) 0.0 0.0 Abs Immat Gran (auto) 0.01 0.02 Absolute Neuts (auto) 2.8 3.1 Absolute Nucleated RBC 0.000 0.000 Nucleated RBC % (auto) 0.0 0.0 PT INR Sodium 122 L Potassium 4.4 Chloride 90 L Carbon Dioxide 24 Anion Gap 12 BUN 8 L Creatinine 0.68 Estim Creat Clear Calc 77.7 Estimated GFR > 60 Random Glucose 86 Osmolality Calcium 7.8 L B-Natriuretic Peptide Urine Osmolality Ur Random Sodium Urine Creatinine COVID-19 ([facility]) COVID-19 [facility] Blood Type Antibody Screen 11/14/20 11/14/20 11/14/20 07:02 14:49 17:42 WBC RBC Hgb Hct MCV MCH MCHC RDW Plt Count MPV Immature Gran % (Auto) Neut % (Auto) Lymph % (Auto) [place] % (Auto) Eos % (Auto) Baso % (Auto) Lymph # (Auto) [place] # (Auto) Eos # (Auto) Baso # (Auto) Abs Immat Gran (auto) Absolute Neuts (auto) Absolute Nucleated RBC Nucleated RBC % (auto) PT INR Sodium 126 L 129 L 127 L Potassium 3.8 3.8 3.9 Chloride 95 L 95 L 94 L Carbon Dioxide 24 29 28 Anion Gap 11 L 9 L 9 L BUN 6 L 7 L 8 L Creatinine 0.62 0.67 0.64 Estim Creat Clear Calc 85.3 78.9 82.6 Estimated GFR > 60 > 60 > 60 Random Glucose 90 96 119 H Osmolality Calcium 7.8 L 8.0 L 8.0 L B-Natriuretic Peptide Urine Osmolality Ur Random Sodium Urine Creatinine COVID-19 ([facility]) COVID-19 [facility] Blood Type Antibody Screen 11/15/20 11/15/20 11/16/20 07:25 07:25 06:00 WBC 6.7 7.0 RBC 3.27 L 2.92 L Hgb 11.1 L 10.1 L Hct 31.9 L 28.4 L MCV 97.6 97.3 MCH 33.9 H 34.6 H MCHC 34.8 35.6 RDW 12.2 12.1 Plt Count 265 257 MPV 8.7 L 8.6 L Immature Gran % (Auto) Cancelled 0.3 Neut % (Auto) Cancelled 55.4 Lymph % (Auto) Cancelled 25.1 [place] % (Auto) Cancelled 10.7 Eos % (Auto) Cancelled 7.9 H Baso % (Auto) Cancelled 0.6 Lymph # (Auto) Cancelled 1.8 [place] # (Auto) Cancelled 0.8 Eos # (Auto) Cancelled 0.6 H Baso # (Auto) Cancelled 0.0 Abs Immat Gran (auto) Cancelled 0.02 Absolute Neuts (auto) Cancelled 3.9 Absolute Nucleated RBC 0.000 0.000 Nucleated RBC % (auto) 0.0 0.0 PT INR Sodium 128 L Potassium 4.3 Chloride 94 L Carbon Dioxide 26 Anion Gap 12 BUN 8 L Creatinine 0.62 Estim Creat Clear Calc 85.3 Estimated GFR > 60 Random Glucose 92 Osmolality Calcium 8.3 L B-Natriuretic Peptide Urine Osmolality Ur Random Sodium Urine Creatinine COVID-19 ([facility]) COVIDSupportPay [facility] Blood Type Antibody Screen 11/16/20 11/16/20 11/17/20 06:00 14:06 05:51 WBC 7.4 RBC 3.16 L Hgb 10.9 L Hct 31.1 L MCV 98.4 H MCH 34.5 H MCHC 35.0 RDW 12.3 Plt Count 283 MPV 8.6 L Immature Gran % (Auto) 0.3 Neut % (Auto) 52.9 Lymph % (Auto) 26.4 [place] % (Auto) 9.4 Eos % (Auto) 10.3 H Baso % (Auto) 0.7 Lymph # (Auto) 1.9 [place] # (Auto) 0.7 Eos # (Auto) 0.8 H Baso # (Auto) 0.1 Abs Immat Gran (auto) 0.02 Absolute Neuts (auto) 3.9 Absolute Nucleated RBC 0.000 Nucleated RBC % (auto) 0.0 PT INR Sodium 128 L 129 L Potassium 5.3 H D 4.4 Chloride 94 L 92 L Carbon Dioxide 28 31 H Anion Gap 11 L 10 L BUN 10 12 Creatinine 0.69 0.74 Estim Creat Clear Calc 76.6 71.4 Estimated GFR > 60 > 60 Random Glucose 94 101 Osmolality Calcium 8.4 8.3 L B-Natriuretic Peptide Urine Osmolality Ur Random Sodium Urine Creatinine COVID-19 ([facility]) COVID-SupportPay [facility] Blood Type Antibody Screen 11/17/20 05:51 WBC RBC Hgb Hct MCV MCH MCHC RDW Plt Count MPV Immature Gran % (Auto) Neut % (Auto) Lymph % (Auto) [place] % (Auto) Eos % (Auto) Baso % (Auto) Lymph # (Auto) [place] # (Auto) Eos # (Auto) Baso # (Auto) Abs Immat Gran (auto) Absolute Neuts (auto) Absolute Nucleated RBC Nucleated RBC % (auto) PT INR Sodium 127 L Potassium 4.2 Chloride 93 L Carbon Dioxide 26 Anion Gap 12 BUN 12 Creatinine 0.73 Estim Creat Clear Calc 72.4 Estimated GFR > 60 Random Glucose 86 Osmolality Calcium 8.3 L B-Natriuretic Peptide Urine Osmolality Ur Random Sodium Urine Creatinine COVID-19 ([facility]) COVID-19 Clin Com Blood Type Antibody Screen Narrative Narrative: AOx3, responds appropriately and verbalizes and repeats concerns communicated to him. Airway Mallampati Class: III TM Dist: >3cm Neck ROM: Full Loose/Missing/Broken Teeth: Yes (Poor dentition, multiple missing teeth, none lose per report; informed of risk of dental injury) Heart: RRR Lungs: NL Assessment and Plan Assessment Anesthesia Assessment: Anesthesia Plan Discussed Final Anesthetic Review NPO: Yes ASA Class: IV Final Preanesthetic Review: No Changes in Pt Med Stat, Meds/Allgs Chart Reviewed, Consent Obtained/Reviewed and Anes Risks/Benef Reviewed Patient Risk: High Procedure Risk: Intermediate Anesthetic Plan Anesthetic Plan: GA Disposition: Standard PACU
[2020-11-17 10:00] LABS: Thyroid Stimulating Hormone 2.17 uIU/mL (0.32-4.0)
[2020-11-17] MEDS: 0.9 % Sodium Chloride 1,000 ML 50 ML IVCONT (10:27)
--- NOTE | 2020-11-17 11:12 | MHC.SHP ---
Pre-Procedural Eval Section A The patient is an INPATIENT: Yes Changes since office visit: Yes Patient answered all questions; No Cold of Flu in the past 2 weeks, No New Medical Problems and No Changes in Medication The History & Physical has been completed within 30 days and I have reviewed it.: Yes Section B Chief Complaint: Left Hip Fracture Allergies: Allergies Allergy/AdvReac Type Severity Reaction Status Date / Time codeine [CODEINE] Allergy Intermediate GI UPSET Verified 11/09/20 15:50 Penicillins [PENICILLINS] Allergy Intermediate ITCHY Verified 11/09/20 15:50 Plan I have reviewed the history and physical and performed a pertinent physical examination on my patient. No changes have occurred unless specified.
--- NOTE | 2020-11-17 12:16 | P.PNNP_ITS ---
Subjective Subjective Date of Service: 11/17/20 Interval history: Events noted. All recent data reviewed No fever, chills or weakness No chest pain, palpitation No shortness of breath or coughing No abdominal pain, nausea or vomiting No urinary symptoms No any rash or wounds Physical Exam Vital Signs: Vital Signs: Last Vital Signs Temp 98.1 F 11/17/20 09:53 Pulse 89 11/17/20 09:53 Resp 16 11/17/20 09:53 BP 139/55 L 11/17/20 09:53 Pulse Ox 97 11/17/20 09:53 Body Mass Index 18.6 Const: General: no acute distress Orientation/consciousness: patient oriented x3 Neck: Neck: Yes supple Resp: Auscultation: diminished lung sounds Cardio: Jugular venous distension: no JVD GI: Palpation (GI): Soft to palpation Neuro: General: patient oriented x3 Objective Data Labs CBC & Chem 7: 11/17/20 05:51 11/17/20 05:51 Labs: Laboratory Results - last 24 hr 11/16/20 11/17/20 11/17/20 14:06 05:51 05:51 WBC 7.4 RBC 3.16 L Hgb 10.9 L Hct 31.1 L MCV 98.4 H MCH 34.5 H MCHC 35.0 RDW 12.3 Plt Count 283 MPV 8.6 L Immature Gran % (Auto) 0.3 Neut % (Auto) 52.9 Lymph % (Auto) 26.4 [place] % (Auto) 9.4 Eos % (Auto) 10.3 H Baso % (Auto) 0.7 Lymph # (Auto) 1.9 [place] # (Auto) 0.7 Eos # (Auto) 0.8 H Baso # (Auto) 0.1 Abs Immat Gran (auto) 0.02 Absolute Neuts (auto) 3.9 Absolute Nucleated RBC 0.000 Nucleated RBC % (auto) 0.0 Sodium 129 L 127 L Potassium 4.4 4.2 Chloride 92 L 93 L Carbon Dioxide 31 H 26 Anion Gap 10 L 12 BUN 12 12 Creatinine 0.74 0.73 Estim Creat Clear Calc 71.4 72.4 Estimated GFR > 60 > 60 Random Glucose 101 86 Calcium 8.3 L 8.3 L TSH 2.17 Blood Type Antibody Screen 11/17/20 10:23 WBC RBC Hgb Hct MCV MCH MCHC RDW Plt Count MPV Immature Gran % (Auto) Neut % (Auto) Lymph % (Auto) [place] % (Auto) Eos % (Auto) Baso % (Auto) Lymph # (Auto) [place] # (Auto) Eos # (Auto) Baso # (Auto) Abs Immat Gran (auto) Absolute Neuts (auto) Absolute Nucleated RBC Nucleated RBC % (auto) Sodium Potassium Chloride Carbon Dioxide Anion Gap BUN Creatinine Estim Creat Clear Calc Estimated GFR Random Glucose Calcium TSH Blood Type O Positive Antibody Screen NEGATIVE Assessment & Plan Assessment and plan (1) Hyponatremia: Problem details: Euvolemic Hyponatemia: Work up c/w SIADH. Serum sodium stable; continue po fluid restriction OK to go forward with ortho surgery from renal standpoint Status: Acute Time Spent With Patient Time: Total time spent is greater than 50% in coordination of care (as documented) at patient's floor/unit and/or counseling patient:
--- NOTE | 2020-11-17 12:23 | PC.NURSE ---
6am draw of sodium resulted 127. Anesthesia made aware. Per Anesthesia Lexa MILLAN, okay to proceed with scheduled surgery.
--- NOTE | 2020-11-17 12:28 | MHC.CM.PN ---
NO DISCHARGE PLANNED FOR TODAY, PT TRANSFERRED TO OR FOR MEDICAL REPAIR OF LEFT HIP FX.
--- NOTE | 2020-11-17 13:55 | CONS_ITS ---
DATE OF SERVICE: 11/13/2020 REASON FOR CONSULTATION: I was called to see this patient to assist in the management of hyponatremia. HISTORY OF PRESENT ILLNESS: To summarize, Portillo is a 69-year-old man with history of hypertension. He has been admitted for left hip pain. He has sustained left hip fracture and awaiting surgery. He was found to have hyponatremia with sodium of 121, and hence this consultation. On admission, chest x-ray showed severe COPD with a new opacity in the right upper lobe. This was followed by a CT chest, which showed irregular spiculated lesion on the upper lobes, unable to exclude malignancy. PAST MEDICAL HISTORY: Ongoing medical problems include history of hypertension, osteoarthritis, COPD, degenerative arthritis, spondylosis. FAMILY HISTORY: Significant for heart failure and mother had colon cancer. PAST SURGICAL HISTORY: Rectal polypectomy. SOCIAL HISTORY: Lives with his spouse. He consumes alcohol few times a week, usually [place] in winter and beer in summer. He smokes about 12 cigarettes a day. ALLERGIES: HE IS ALLERGIC TO CODEINE AND PENICILLIN. MEDICATIONS: Active medications were reviewed. Medications at home include gabapentin 300 mg and ibuprofen. REVIEW OF SYSTEMS: Reveal left hip pain. No headache, nausea, or vomiting. No abdominal pain, diarrhea, or constipation. No urinary symptoms. No fever. No rash. All other systems were reviewed. PHYSICAL EXAMINATION: GENERAL: Portillo is a 69-year-old man, who appears cachectic, not in any distress. NECK: Supple. No JVD. HEENT: Mucosa is dry. LUNGS: Air entry equal. Few rhonchi. HEART: S1, S2 heard. No gallop. ABDOMEN: Soft, nontender. EXTREMITIES: No edema. No rash. No clubbing. VITAL SIGNS: Blood pressure 160/89, pulse 87, temperature 98.4. DIAGNOSTIC DATA: CT chest and chest x-ray were reviewed. LABORATORY DATA: Hemoglobin 10.7, WBC 5.6, platelets 263. Sodium 122, potassium 4.4, BUN 8, creatinine 0.68, calcium 7.8. Urine osmolality 577, urine sodium 112, urine creatinine 112. IMPRESSION: 69-year-old man with asymptomatic hyponatremia. Portillo probably has euvolemic hyponatremia. The urine sodium was elevated with inappropriately elevated urine osmolality suggestive of SIADH. He has underlying lung lesions and CT shows [id number] centrilobular emphysema. For sake of completion, we will obtain cortisol and TSH as well. RECOMMENDATIONS: My recommendation is to obtain serum osmolality. Check cortisol and TSH. Restrict oral free water intake to 1 L per 24 hours. Goal is to correct the serum sodium at a rate of 0.5 millimole per liter per hour and not to exceed more than 10 millimoles in 24 hours. I will follow the serum sodium every 6 hours. There is no indication for hypertonic saline at this time. If the serum sodium does not improve, we can add urea 15 g p.o. b.i.d. At this point, there is no absolute contraindication for the hip surgery from a renal standpoint. We will follow him along with the team. Julio Kearns MD BPA/MODL / [id number]
--- NOTE | 2020-11-17 14:20 | PM.OP ---
Brief Operative Note Date of Service: 11/17/20 Pre-op diagnosis: left femoral neck fracture Post-op diagnosis: same Procedure: left hip hemiarthroplasty Implants: yany accolade #7 with +0/49 bipolar Surgeon: Dimas Fisher MD Anesthesia: GETA Potato Chip Cooker Machine: Geovanna Banegas Estimated blood loss (mL): 150 Tourniquet time (min): 0 IV fluids (mL): 1,000 Pathology: other Condition: stable Disposition: PACU
--- NOTE | 2020-11-17 14:48 | HO.PM.IMPN ---
Subjective Subjective Date of Service: 11/17/20 Interval History: the patient was seen and evaluated this morning Laying in bed, feels comfortable, hip pain under control, upset about postponing surgery Surgery postponed until tomorrow by anesthesia for low sodium level? Denies any fever, chills or shortness of breath No reported other overnight events. Systemic review: No fever, chills or weakness No chest pain, palpitation No shortness of breath or coughing No abdominal pain, nausea or vomiting No urinary symptoms No any rash or wounds Physical Exam Vital Signs: Vital Signs: Last Vital Signs Temp 98.1 F 11/17/20 14:28 Pulse 87 11/17/20 14:28 Resp 18 11/17/20 14:28 BP 109/65 11/17/20 14:28 Pulse Ox 97 11/17/20 14:28 Body Mass Index 18.6 Const: Other: Constitutional : Alert, oriented, not in distress Neck : Normal inspection, Supple Cardiovascular : RRR, S1 S2, no lower extremity edema Respiratory : Good bilateral air entry, no crackles, wheezes or rhonchi Gastrointestinal: soft, lax, Normal bowel sounds, Non tender Skin : Warm/Dry, No rash Muscular; Left hip fracture, externally rotated Neurological : Alert & oriented x3, No focal deficit Objective Data Current Medications Generic Name Dose Route Start Last Admin Trade Name Freq PRN Reason Stop Dose Admin Acetaminophen 325 mg 11/12/20 15:02 11/14/20 20:17 Acetaminophen 325 Mg Tablet PO 325 mg Q4H PRN Administration Pain, Mild (Pain Scale 1-3) Gabapentin 300 mg 11/13/20 17:00 11/16/20 17:32 Gabapentin 300 Mg Capsule PO 300 mg DAILY@1700 [facility] Administration Hydromorphone HCl 2 mg 11/12/20 15:02 11/15/20 20:39 Hydromorphone Hcl 2 Mg Tablet PO 2 mg Q4H PRN Administration Pain, Severe (Pain Scale 7-10) Hydromorphone HCl 0.25 mg 11/17/20 10:18 Hydromorphone Hcl 0.5 Mg/0.5 Ml Syringe IVPUSH Q5M PRN Pain, Severe (Pain Scale 7-10) Cefazolin Sodium/Dextrose 2 gm in 50 mls @ 100 mls/hr 11/17/20 09:00 Ancef IV PREOP@0900 [facility]O Sodium Chloride 1,000 mls @ 50 mls/hr 11/17/20 10:30 11/17/20 10:27 Ns IVCONT 50 mls/hr .Q20H HIPOLITO Administration Ibuprofen 600 mg 11/12/20 18:14 Ibuprofen 600 Mg Tablet PO TID PRN Breakthrough Pain, Mild Nicotine 21 mg 11/13/20 06:20 11/17/20 07:56 Nicotine 21 Mg Patch.Td24 TRANSDERMA 21 mg DAILY [facility]IPOL[facility]O Administration Ondansetron HCl 4 mg 11/12/20 15:07 Ondansetron Hcl 4 Mg/2 Ml Vial IVPUSH Q4H PRN Nausea Oxycodone HCl 5 mg 11/12/20 15:02 11/16/20 19:28 Oxycodone Hcl Immed Release 5 Mg Tablet PO 5 mg Q4H PRN Administration Pain, Moderate (Pain Scale 4-6 Oxycodone HCl 10 mg 11/12/20 21:00 11/17/20 07:56 Oxycodone Hcl Er 10 Mg Tab.Er.12h PO 10 mg BID HIPOLITO Administration Oxycodone HCl 5 mg 11/17/20 10:18 Oxycodone Hcl Immed Release 5 Mg Tablet PO ONCE PRN Pain, Severe (Pain Scale 7-10) Tizanidine HCl 4 mg 11/12/20 18:14 Tizanidine Hcl 4 Mg Tablet PO TID PRN muscle spasticity Labs CBC & Chem 7: 11/17/20 05:51 11/17/20 05:51 Assessment and Plan (1) Hyponatremia: Status: Acute (2) Pulmonary nodule: Status: Acute (3) Hip fracture: Status: Acute Assessment and Plan: 69 male with left hip fracture 3 weeks agoa, left AMA 3 days ago, evaluated by ortho in the office and admitted now and is planned to have surgery Hyponatemia 127 today DDx: lung mass, SIADH? DC IVF continue water restrection normal TSH, pending cortisol Nephrology input appreciated, Hyperkalemia resolved follow K Left Hip fracture Per orthopedic team today Leg edema no other stigmata of heart failure normal BNP, likely from nutritional status, low albumin state Left upper lobe oppacity seen on CXR 11/09/20 CT shows spiculated lession will need repet CT and or PET. Dr. Rowland recommends outpatient fullow up with pulmonary clinic after surgery HTN Better controlled today resume Lisinopril Neuropathy--Gabpentin History of smoking- Nicotine patch h/o alcohol use continue CIWA folic and thiamine x 3 days Mild to moderate protein caloary malnutrition high protein diet or add ensure Severe COPD no exacerbation not on inhalers, smokes alot updraft PRN pulmonary recommends inhalers pre and post surgery DVT PPx SCDs
--- NOTE | 2020-11-17 16:42 | PC.NURSE ---
patient refused telesiter
[2020-11-17] MEDS: Gabapentin 300 MG CAPSULE PO (16:43)
[2020-11-17] MEDS: ceFAZolin Sodium/Dextrose,Iso 2 GM/50 ML PIGGYBACK IV (16:43)
[2020-11-18 00:56] VITALS: BP 112/54; PULSE 99; RESP 18; TEMP 37.2; O2SAT 96
[2020-11-18] MEDS: oxyCODONE HCl Immed Release 5 MG TABLET PO ×2 (05:42→20:13)
[2020-11-18 05:43] LABS: Hematocrit 24.4 % (42-52); Hemoglobin 8.6 g/dl (14.0-18.0); Mean Corpuscular HGB Conc 35.2 g/dl (31.0-36.0); Mean Corpuscular Hemoglobin 34.3 pg (27.0-33.0); Mean Corpuscular Volume 97.2 fL (80-98); Mean Platelet Volume 8.9 fL (9.4-12.4); Platelet Count 250 X10*3/uL (160-400); Red Blood Count 2.51 X10*6/uL (4.60-5.80); White Blood Count 6.2 X10*3/uL (4.8-10.8)
[2020-11-18 06:17] LABS: Anion Gap 12 (12-20); Blood Urea Nitrogen 15 mg/dL (9-16); Calcium 7.6 mg/dL (8.4-10.2); Carbon Dioxide 26 mmol/L (22-29); Chloride 94 mmol/L (96-108); Creatinine Clr Calc Pharmacy 76.4; Estimated Glomerular Filt Rate > 60; Glucose Random 118 mg/dL (60-115); Potassium 4.3 mmol/L (3.3-5.1); Sodium 128 mmol/L (135-145)
--- NOTE | 2020-11-18 07:30 | PM.PNORT ---
Subjective Subjective Date of Service: 11/18/20 Principal diagnosis: Lt hip hemiarthroplasty Interval history: POD 1 s/p left hip hemiathroplasty Overnight he refused his abd brace. Has not been out of bed, denies sob, cp, dizziness Physical Exam Vital Signs: Vital Signs: Last Vital Signs Temp 98.9 F 11/18/20 00:56 Pulse 99 11/18/20 00:56 Resp 18 11/18/20 00:56 BP 112/54 L 11/18/20 00:56 Pulse Ox 96 11/18/20 00:56 Body Mass Index 18.6 Const: General: cooperative, healthy appearing and no acute distress Resp: Effort & Inspection: normal respiratory effort and able to speak in complete sentences Cardio: Rate: regular rate Peripheral pulses: Peripheral pulses 2+ throughout GI: Palpation (GI): Soft to palpation Skin: General skin exam: no rashes or lesions noted Extrem: Other: left hip incision clean, dry and intact. No erythema, mild edema, sensation intact. Progress Note: A&P Assessment and plan (1) History of left hip hemiarthroplasty: Status: Acute Assessment and Plan: Continue pain mgmnt Begin lovenox dvt ppx begin PT /OT for LT hip liam-post precautions and abd pillow Dispo planning-Pending PT eval, pain mgmnt Fall Risk Details Current Medications: Current Medications Generic Name Dose Route Start Last Admin Trade Name Freq PRN Reason Stop Dose Admin Acetaminophen 325 mg 11/12/20 15:02 11/14/20 20:17 Acetaminophen 325 Mg Tablet PO 325 mg Q4H PRN Administration Pain, Mild (Pain Scale 1-3) Enoxaparin Sodium 40 mg 11/18/20 11:00 Enoxaparin Sodium 40 Mg/0.4 Ml Syringe SUBCUT DAILY [facility] Gabapentin 300 mg 11/13/20 17:00 11/17/20 16:43 Gabapentin 300 Mg Capsule PO 300 mg DAILY@1700 [facility] Administration Hydromorphone HCl 0.25 mg 11/17/20 16:30 Hydromorphone Hcl 0.5 Mg/0.5 Ml Syringe IVPUSH Q4H PRN Pain, Severe (Pain Scale 7-10) Nicotine 21 mg 11/13/20 06:20 11/17/20 07:56 Nicotine 21 Mg Patch.Td24 TRANSDERMA 21 mg DAILY [facility] Administration Ondansetron HCl 4 mg 11/12/20 15:07 Ondansetron Hcl 4 Mg/2 Ml Vial IVPUSH Q4H PRN Nausea Oxycodone HCl 5 mg 11/17/20 16:30 11/18/20 05:42 Oxycodone Hcl Immed Release 5 Mg Tablet PO 5 mg Q4H PRN Administration Pain, Moderate (Pain Scale 4-6 Oxycodone HCl 10 mg 11/18/20 09:00 Oxycodone Hcl Er 10 Mg Tab.Er.12h PO BID [facility] Tizanidine HCl 4 mg 11/12/20 18:14 Tizanidine Hcl 4 Mg Tablet PO TID PRN muscle spasticity Time Spent With Patient Time: Total time spent is greater than 50% in coordination of care (as documented) at patient's floor/unit and/or counseling patient: Time with patient: 15 - 24 minutes
[2020-11-18] MEDS: oxyCODONE HCl ER 10 MG TAB.ER.12H PO ×2 (08:55→20:10)
[2020-11-18] MEDS: Nicotine 21 MG PATCH.TD24 TRANSDERMA (08:55)
--- NOTE | 2020-11-18 10:14 | HO.POSTANES ---
Post Anesthesia Evaluation Post Anesthesia Evaluation Vital Signs: Vital Signs Temp Pulse Resp BP Pulse Ox 11/18/20 00:56 98.9 F 99 18 112/54 L 96 Anesthesia: General Endotracheal-GETA Mental Status: Awake Pain Control: Satisfactory Nausea/Vomiting: None Hydration: Adequate Anesthesia-Related Issues: No Anes. Related Issues
--- NOTE | 2020-11-18 11:06 | P.PNIM_ITS ---
Subjective Subjective Date of Service: 11/18/20 Interval History: the patient was seen and evaluated this morning Laying in bed, feels comfortable, hip pain post op under control, Denies any fever, chills or shortness of breath No reported other overnight events. Systemic review: No fever, chills or weakness No chest pain, palpitation No shortness of breath or coughing No abdominal pain, nausea or vomiting No urinary symptoms No any rash or wounds Physical Exam Vital Signs: Vital Signs: Last Vital Signs Temp 98.9 F 11/18/20 00:56 Pulse 99 11/18/20 00:56 Resp 18 11/18/20 00:56 BP 112/54 L 11/18/20 00:56 Pulse Ox 96 11/18/20 00:56 Body Mass Index 18.6 Const: Other: Constitutional : Alert, oriented, not in distress Neck : Normal inspection, Supple Cardiovascular : RRR, S1 S2, no lower extremity edema Respiratory : Good bilateral air entry, no crackles, wheezes or rhonchi Gastrointestinal: soft, lax, Normal bowel sounds, Non tender Skin : Warm/Dry, No rash, no bleeding noticed Neurological : Alert & oriented x3, No focal deficit Objective Data Current Medications Generic Name Dose Route Start Last Admin Trade Name Freq PRN Reason Stop Dose Admin Acetaminophen 325 mg 11/12/20 15:02 11/14/20 20:17 Acetaminophen 325 Mg Tablet PO 325 mg Q4H PRN Administration Pain, Mild (Pain Scale 1-3) Enoxaparin Sodium 40 mg 11/18/20 11:00 Enoxaparin Sodium 40 Mg/0.4 Ml Syringe SUBCUT DAILY [facility] Gabapentin 300 mg 11/13/20 17:00 11/17/20 16:43 Gabapentin 300 Mg Capsule PO 300 mg DAILY@1700 [facility] Administration Hydromorphone HCl 0.25 mg 11/17/20 16:30 Hydromorphone Hcl 0.5 Mg/0.5 Ml Syringe IVPUSH Q4H PRN Pain, Severe (Pain Scale 7-10) Nicotine 21 mg 11/13/20 06:20 11/18/20 08:55 Nicotine 21 Mg Patch.Td24 TRANSDERMA 21 mg DAILY [facility] Administration Ondansetron HCl 4 mg 11/12/20 15:07 Ondansetron Hcl 4 Mg/2 Ml Vial IVPUSH Q4H PRN Nausea Oxycodone HCl 5 mg 11/17/20 16:30 11/18/20 05:42 Oxycodone Hcl Immed Release 5 Mg Tablet PO 5 mg Q4H PRN Administration Pain, Moderate (Pain Scale 4-6 Oxycodone HCl 10 mg 11/18/20 09:00 11/18/20 08:55 Oxycodone Hcl Er 10 Mg Tab.Er.12h PO 10 mg BID [facility] Administration Tizanidine HCl 4 mg 11/12/20 18:14 Tizanidine Hcl 4 Mg Tablet PO TID PRN muscle spasticity Labs CBC & Chem 7: 11/18/20 05:23 11/18/20 05:23 Assessment and Plan (1) Hyponatremia: Status: Acute (2) Pulmonary nodule: Status: Acute (3) Hip fracture: Status: Acute Assessment and Plan: 69 male with left hip fracture 3 weeks agoa, left AMA 3 days ago, evaluated by ortho in the office and admitted now and is planned to have surgery Hyponatemia 128 today DDx: lung mass, SIADH? continue water restrection normal TSH, pending cortisol Nephrology input appreciated, Hyperkalemia resolved follow K Left Hip fracture post arthroplasy\ PT\OT Leg edema no other stigmata of heart failure normal BNP, likely from nutritional status, low albumin state Left upper lobe oppacity seen on CXR 11/09/20 CT shows spiculated lession will need repet CT and or PET. Dr. Rowland recommends outpatient fullow up with pulmonary clinic after surgery HTN Better controlled today resume Lisinopril Neuropathy Gabpentin History of smoking Nicotine patch h/o alcohol use continue CIWA folic and thiamine x 3 days Mild to moderate protein caloary malnutrition high protein diet or add ensure Severe COPD no exacerbation not on inhalers, smokes alot updraft PRN pulmonary recommends inhalers pre and post surgery DVT PPx SCDs
--- NOTE | 2020-11-18 12:18 | PM.PNNEP ---
Subjective Subjective Date of Service: 11/18/20 Principal diagnosis: Lt hip hemiarthroplasty Interval history: patient was seen and evaluated this morning Laying in bed, feels comfortable, hip pain post op under control, Denies any fever, chills or shortness of breath No reported other overnight events. Systemic review: No fever, chills or weakness No chest pain, palpitation No shortness of breath or coughing No abdominal pain, nausea or vomiting No urinary symptoms No any rash or wounds Physical Exam Vital Signs: Vital Signs: Last Vital Signs Temp 98.9 F 11/18/20 00:56 Pulse 99 11/18/20 00:56 Resp 18 11/18/20 00:56 BP 112/54 L 11/18/20 00:56 Pulse Ox 96 11/18/20 00:56 Body Mass Index 18.6 Const: General: comfortable Orientation/consciousness: patient oriented x3 Neck: Neck: Yes supple Resp: Auscultation: diminished lung sounds Cardio: Jugular venous distension: no JVD GI: Palpation (GI): Soft to palpation Neuro: General: patient oriented x3 and moves all extremities Objective Data Labs CBC & Chem 7: 11/18/20 05:23 11/18/20 05:23 Labs: Laboratory Results - last 24 hr 11/18/20 11/18/20 05:23 05:23 WBC 6.2 RBC 2.51 L D Hgb 8.6 L D Hct 24.4 L D MCV 97.2 MCH 34.3 H MCHC 35.2 RDW 12.0 Plt Count 250 MPV 8.9 L Absolute Nucleated RBC 0.000 Nucleated RBC % (auto) 0.0 Sodium 128 L Potassium 4.3 Chloride 94 L Carbon Dioxide 26 Anion Gap 12 BUN 15 Creatinine 0.75 Estim Creat Clear Calc 76.4 Estimated GFR > 60 Random Glucose 118 H D Calcium 7.6 L D Assessment & Plan Assessment and plan (1) Hyponatremia: Problem details: Euvolemic Hyponatemia: Work up c/w SIADH. ? from lung Serum sodium stable; continue PO fluid restriction Status: Acute Time Spent With Patient Time: Total time spent is greater than 50% in coordination of care (as documented) at patient's floor/unit and/or counseling patient:
--- NOTE | 2020-11-18 13:08 | MHC.CLN ---
F/U PO INTAKE 100% DIET RX: REGULAR WITH 1800CC FR-APPROPRIATE RE-STARTED ENSURE TID TO INCREASE KCALS; PT RECEPTIVE TO DRINKING CHOCOLATE FLAVOR SUPP PROVIDES 540CC FREE WATER FOR FLUID RESTRICTION-KITCHEN AWARE WILL ADD ARNOLD TO PROMOTE WOUND HEALING FOLLOWING
[2020-11-18] MEDS: Enoxaparin Sodium 40 MG/0.4 ML SYRINGE SUBCUT (13:14)
[2020-11-18] MEDS: Gabapentin 300 MG CAPSULE PO (18:32)
[2020-11-18 19:35] VITALS: BP 109/59; PULSE 89; RESP 20; TEMP 37.3; O2SAT 99
[2020-11-18 23:53] VITALS: BP 99/52; PULSE 87; RESP 20; TEMP 36.7; O2SAT 95
[2020-11-19] VITALS (7 sets, daily range): BP systolic 93–128; BP diastolic 45–65; PULSE 65–100; RESP 16–18; TEMP 36.8–37.5; O2SAT 94–100
[2020-11-19 06:44] LABS: Anion Gap 12 (12-20); Blood Urea Nitrogen 24 mg/dL (9-16); Calcium 7.5 mg/dL (8.4-10.2); Carbon Dioxide 26 mmol/L (22-29); Chloride 94 mmol/L (96-108); Creatinine Clr Calc Pharmacy 46.2; Estimated Glomerular Filt Rate 58; Glucose Random 129 mg/dL (60-115); Potassium 4.1 mmol/L (3.3-5.1); Sodium 128 mmol/L (135-145)
[2020-11-19 07:38] LABS: Hematocrit 21.9 % (42-52); Hemoglobin 7.5 g/dl (14.0-18.0)
--- NOTE | 2020-11-19 08:14 | PM.PNORT ---
Subjective Subjective Date of Service: 11/19/20 Principal diagnosis: Lt hip hemiarthroplasty Interval history: POD 2 s/p LT hip hemiarthroplasty No overnights events He has been out of bed working with PT, using abd brace. No concerns. He is sleepy. Physical Exam Vital Signs: Vital Signs: Last Vital Signs Temp 99.0 F 11/19/20 07:28 Pulse 65 11/19/20 07:28 Resp 16 11/19/20 07:28 BP 123/51 L 11/19/20 07:28 Pulse Ox 95 11/19/20 07:28 Body Mass Index 18.6 Const: General: cooperative, healthy appearing and no acute distress Resp: Effort & Inspection: normal respiratory effort and able to speak in complete sentences Cardio: Rate: regular rate Peripheral pulses: Peripheral pulses 2+ throughout GI: Palpation (GI): Soft to palpation Skin: General skin exam: no rashes or lesions noted Extrem: Other: Left hip incision clean, dry and intact, no erythema, no edema, senstaion intact Progress Note: A&P Assessment and plan (1) History of left hip hemiarthroplasty: Status: Acute Assessment and Plan: Continue pain mgmnt cont lovenox dvt ppx cont PT/OT Dispo planning-Pending PT eval, pain mgmnt Fall Risk Details Current Medications: Current Medications Generic Name Dose Route Start Last Admin Trade Name Freq PRN Reason Stop Dose Admin Acetaminophen 325 mg 11/12/20 15:02 11/14/20 20:17 Acetaminophen 325 Mg Tablet PO 325 mg Q4H PRN Administration Pain, Mild (Pain Scale 1-3) Enoxaparin Sodium 40 mg 11/18/20 11:00 11/18/20 13:14 Enoxaparin Sodium 40 Mg/0.4 Ml Syringe SUBCUT 40 mg DAILY [facility] Administration Gabapentin 300 mg 11/13/20 17:00 11/18/20 18:32 Gabapentin 300 Mg Capsule PO 300 mg DAILY@1700 [facility] Administration Hydromorphone HCl 0.25 mg 11/17/20 16:30 Hydromorphone Hcl 0.5 Mg/0.5 Ml Syringe IVPUSH Q4H PRN Pain, Severe (Pain Scale 7-10) Nicotine 21 mg 11/13/20 06:20 11/18/20 08:55 Nicotine 21 Mg Patch.Td24 TRANSDERMA 21 mg DAILY [facility] Administration Ondansetron HCl 4 mg 11/12/20 15:07 Ondansetron Hcl 4 Mg/2 Ml Vial IVPUSH Q4H PRN Nausea Oxycodone HCl 5 mg 11/17/20 16:30 11/18/20 20:13 Oxycodone Hcl Immed Release 5 Mg Tablet PO 5 mg Q4H PRN Administration Pain, Moderate (Pain Scale 4-6 Oxycodone HCl 10 mg 11/18/20 09:00 11/18/20 20:10 Oxycodone Hcl Er 10 Mg Tab.Er.12h PO 10 mg BID [facility] Administration Tizanidine HCl 4 mg 11/12/20 18:14 Tizanidine Hcl 4 Mg Tablet PO TID PRN muscle spasticity Time Spent With Patient Time: Total time spent is greater than 50% in coordination of care (as documented) at patient's floor/unit and/or counseling patient: Time with patient: 15 - 24 minutes
[2020-11-19] MEDS: Enoxaparin Sodium 40 MG/0.4 ML SYRINGE SUBCUT (08:37)
[2020-11-19] MEDS: oxyCODONE HCl ER 10 MG TAB.ER.12H PO (08:37)
[2020-11-19] MEDS: Nicotine 21 MG PATCH.TD24 TRANSDERMA (08:37)
--- NOTE | 2020-11-19 08:45 | W.PM.OPN ---
Operative Note Operative Note Date of Service: 11/17/20 Narrative: Pre-op diagnosis: left femoral neck fracture Post-op diagnosis: same Procedure: left hip hemiarthroplasty Implants: yany accolade #7 with +0/49 bipolar Relay Mechanic: OMARI Banegas Anesthesia: General Estimated blood loss (mL): 150 6 IV fluids (mL): 1000 Pathology: other Condition: stable Disposition: PACU Procedure in detail: Patient was brought to the operative room placed in the lateral decubitus position. All bony prominences were well padded he was prepped and draped in standard sterile fashion. IV antibiotics per weight were administered and a time-out was called to identify proper site proper procedure proper surgeon. Radiographs were available and confirmed. I began by making a curvilinear incision over the posterolateral aspect of the greater trochanter. Dissection was taken down to the tensor fascia which was incised in line with the incision and a Charnley retractor was placed. The hip was internally rotated and the external rotators were identified. All vessels in the area were cauterized and a full-thickness capsular/external rotator layer was developed in a hockey-stick fashion starting just proximal to the piriformis. This layer was tagged and the displaced femoral neck fracture was identified. Clean-up cut was performed and the head was removed and measured on the back table. I then copiously irrigated the acetabulum and removed all bony fragments. Once this was done I used a cookie cutter to lateralize and a Charnley awl to identify the canal and then sequentially broached up to a #__7___. I then trialed with a standard head and a bipolar component matching the femoral head size. I was happy with the range of motion and stability and length. Therefore I removed all instrumentation and copiously irrigated. I then placed my final implant read trialed. I was happiest with the +0/49 bipolar implant. Once this was done I closed the capsular layer with FiberWire and then performed a layered closure with vince on skin. Patient was placed in sterile dressing extubated brought to recovery room in stable condition there were no known complications. Additionally, this patient has had this fracture for nearly 30 days. She was contracted in flexion and a abduction pillow was applied postoperatively. He is very tight in extension and will need to wear the abduction pillow while in the hospital.
--- NOTE | 2020-11-19 12:06 | HO.PM.IMPN ---
Subjective Subjective Date of Service: 11/19/20 Interval History: the patient was seen and evaluated this morning Laying in bed, feels comfortable, hip pain post op under control, Denies any fever, chills or shortness of breath No reported other overnight events. Systemic review: No fever, chills or weakness No chest pain, palpitation No shortness of breath or coughing No abdominal pain, nausea or vomiting No urinary symptoms No any rash or wounds Physical Exam Vital Signs: Vital Signs: Last Vital Signs Temp 98.7 F 11/19/20 09:58 Pulse 98 11/19/20 09:58 Resp 18 11/19/20 11:12 BP 95/46 L 11/19/20 09:58 Pulse Ox 95 11/19/20 07:28 Body Mass Index 18.6 Const: Other: Constitutional : Alert, oriented, not in distress Neck : Normal inspection, Supple Cardiovascular : RRR, S1 S2, no lower extremity edema Respiratory : Good bilateral air entry, no crackles, wheezes or rhonchi Gastrointestinal: soft, lax, Normal bowel sounds, Non tender Skin : Warm/Dry, No rash, no bleeding noticed Neurological : Alert & oriented x3, No focal deficit Objective Data Current Medications Generic Name Dose Route Start Last Admin Trade Name Freq PRN Reason Stop Dose Admin Acetaminophen 325 mg 11/12/20 15:02 11/14/20 20:17 Acetaminophen 325 Mg Tablet PO 325 mg Q4H PRN Administration Pain, Mild (Pain Scale 1-3) Enoxaparin Sodium 40 mg 11/18/20 11:00 11/19/20 08:37 Enoxaparin Sodium 40 Mg/0.4 Ml Syringe SUBCUT 40 mg DAILY [facility] Administration Gabapentin 300 mg 11/13/20 17:00 11/18/20 18:32 Gabapentin 300 Mg Capsule PO 300 mg DAILY@1700 [facility] Administration Hydromorphone HCl 0.25 mg 11/17/20 16:30 Hydromorphone Hcl 0.5 Mg/0.5 Ml Syringe IVPUSH Q4H PRN Pain, Severe (Pain Scale 7-10) Nicotine 21 mg 11/13/20 06:20 11/19/20 08:37 Nicotine 21 Mg Patch.Td24 TRANSDERMA 21 mg DAILY [facility] Administration Ondansetron HCl 4 mg 11/12/20 15:07 Ondansetron Hcl 4 Mg/2 Ml Vial IVPUSH Q4H PRN Nausea Oxycodone HCl 5 mg 11/17/20 16:30 11/18/20 20:13 Oxycodone Hcl Immed Release 5 Mg Tablet PO 5 mg Q4H PRN Administration Pain, Moderate (Pain Scale 4-6 Oxycodone HCl 10 mg 11/18/20 09:00 11/19/20 08:37 Oxycodone Hcl Er 10 Mg Tab.Er.12h PO 10 mg BID [facility] Administration Tizanidine HCl 4 mg 11/12/20 18:14 Tizanidine Hcl 4 Mg Tablet PO TID PRN muscle spasticity Labs CBC & Chem 7: 11/19/20 05:46 11/19/20 05:46 Assessment and Plan (1) Hyponatremia: Status: Acute (2) Pulmonary nodule: Status: Acute (3) Hip fracture: Status: Acute Assessment and Plan: 69 male with left hip fracture 3 weeks agoa, left AMA 3 days ago, evaluated by ortho in the office and admitted now and is planned to have surgery blood loss anemia Hb 7.5 post surgery To transfuse a unit No other source of bleeding identified Hyponatemia 128 today DDx: lung mass, SIADH? continue water restrection at discharge pending cortisol Nephrology follow up outpatient repeat BMP in 1 week Left Hip fracture post arthroplasy\ PT\OT Left upper lobe oppacity seen on CXR 11/09/20 CT shows spiculated lession will need repet CT and or PET. Dr. Koch recommends outpatient follow up with pulmonary clinic , to call for appointment Mild to moderate protein caloary malnutrition high protein diet or add ensure DVT PPx SCDs
[2020-11-19] MEDS: oxyCODONE HCl Immed Release 5 MG TABLET PO (13:03)
[2020-11-19 14:07] LABS: COVID-19 Test Negative (Negative); IDNOW Serial# 9DD0AD1C
--- NOTE | 2020-11-19 14:31 | P.DS_ITS ---
DS: Providers Provider Date of Service: 11/19/20 Date of admission: 11/12/20 15:11 Primary care physician: Unknown Physician Consults: 11/12/20 15:08 Consult to Hospitalist Routine Consulting Provider: Hospitalist Reason For Exam: medical clearnance preop 11/12/20 18:06 Consult to Pulmonology Routine Consulting Provider: Chin Koch Reason for consultation: Severe copd, pre op 11/12/20 20:10 Consult to Nephrology Routine Consulting Provider: Julio Kearns Reason for consultation: Hyponatremia Has provider been notified: No DS: Diagnosis Discharge Diagnosis (1) Hyponatremia: Status: Acute Problem details: Hyponatemia 128 today DDx: lung mass, SIADH? continue water restrection at discharge pending cortisol Nephrology follow up outpatient repeat BMP in 1 week (2) Hip fracture: Status: Acute Problem details: Left hip fracture s/p fall. Was seen in the office, femoral neck fracture, admitted to orthopedic service in the hospital and consented to undergo operative fixation . (3) Pulmonary nodule: Status: Acute Problem details: Left upper lobe oppacity seen on CXR 11/09/20 CT shows spiculated lession will need repet CT and or PET. Dr. Koch recommends outpatient follow up with pulmonary clinic , to call for appointment DS: Medications Discharge Medications Home Medications: Home Medications Medication Instructions Recorded Confirmed gabapentin 300 mg capsule 300 mg PO DAILY@1700 08/12/20 11/12/20 Previous Rx's Medication Instructions Recorded lisinopril 40 mg tablet 40 mg PO DAILY #90 cap 10/04/20 tizanidine 4 mg tablet 4 mg PO TID PRN 30 Days #90 tab 10/08/20 acetaminophen 325 mg PO Q4H PRN 30 Days #240 tab 11/19/20 enoxaparin 40 mg SUBCUT DAILY 60 Days #24 ml 11/19/20 oxycodone 5 mg PO Q4H PRN 7 Days #42 tab 11/19/20 DS: Summary Hospital Course Hospital Course: The patient underwent a successful left hip hemiarthroplaty, he was transferred to PACU and then to the floor to recover. During their stay, their vitals were stable, afebrile at 98.8. Labs were unremarkable, H/H 7.5/21.9, 1 unit PRBCs. . POD 1 He was started on Lovenox for DVT ppx, they also receivedPT/OT services twice a day. Prior to discharge, their dressing was change, incision clean dry and intact, new Aquacel dressing applied and the plan was to be discharged to [facility]. Length of stay to be less than 30 days Time Spent with Patient Time attestation: Total time spent providing and/or coordinating discharge services: Discharge coordination time: Greater than 30 minutes Physical Exam Vital Signs: Vital Signs: Last Vital Signs Temp 98.8 F 11/19/20 12:15 Pulse 95 11/19/20 12:15 Resp 18 11/19/20 12:15 BP 105/57 L 11/19/20 12:15 Pulse Ox 95 11/19/20 07:28 Body Mass Index 18.6 Const: General: cooperative, healthy appearing and no acute distress Resp: Effort & Inspection: normal respiratory effort and able to speak in complete sentences Cardio: Rate: regular rate Peripheral pulses: Peripheral pulses 2+ throughout GI: Palpation (GI): Soft to palpation Skin: General skin exam: no rashes or lesions noted Extrem: Other: left hip incision c/d/i. no erythema, no edema, sensation intact DS: Data Data Completed and Pending Pending studies at discharge: Pending at discharge 11/17/20 12:51 Surgical [PTH] Routine Labs on day of discharge: Laboratory Results - last 24 hr 11/17/20 11/19/20 11/19/20 10:23 05:46 05:46 Hgb 7.5 L Hct 21.9 L Sodium 128 L Potassium 4.1 Chloride 94 L Carbon Dioxide 26 Anion Gap 12 BUN 24 H D Creatinine 1.24 Estim Creat Clear Calc 46.2 Estimated GFR 58 Random Glucose 129 H Calcium 7.5 L COVID-19 ([facility]) COVID-19 Clin Com Blood Type O Positive Antibody Screen NEGATIVE Crossmatch See Detail 11/19/20 13:25 Hgb Hct Sodium Potassium Chloride Carbon Dioxide Anion Gap BUN Creatinine Estim Creat Clear Calc Estimated GFR Random Glucose Calcium COVID-19 ([facility]) Negative COVID-19 Clin Com See Note Blood Type Antibody Screen Crossmatch Discharge Plan Discharge Patient Disposition: er SNF Referrals: [facility] [Outside] (SHORT TERM REHAB) Maxine Ellis PA-C [Physician Civil Engineering Professor] - Geovanna Banegas PA-C [Physician Civil Engineering Professor] - Discharge Medications: New acetaminophen 325 mg Tablet 325 mg PO Q4H PRN (Reason: Pain, Mild (Pain Scale 1-3)) 30 Days Qty: 240 RF: 0 oxycodone 5 mg Tablet 5 mg PO Q4H PRN (Reason: Pain, Moderate (Pain Scale 4-6) 7 Days Qty: 42 RF: 0 enoxaparin 40 mg/0.4 mL Syringe 40 mg subcut DAILY 60 Days Qty: 24 RF: 0 Continued lisinopril 40 mg tablet 40 mg PO DAILY Qty: 90 RF: 1 gabapentin 300 mg capsule 300 mg PO DAILY@1700 RF: 0 tizanidine 4 mg tablet 4 mg PO TID PRN (Reason: muscle spasticity) 30 Days Qty: 90 RF: 12 Discontinued ibuprofen 600 mg tablet 600 mg PO TID PRN (Reason: Breakthrough Pain, Mild) RF: 0 Discharge Orders: Discharge Order (Routine); Ordered 11/19/20 Ordered By: Geovanna Banegas Diet: regular diet Activity on Discharge: Use cane or walker Stand Alone Forms: Patient Portal Discharge page Other Ambulatory Orders: Basic Metabolic Panel (Routine) Timeframe: 1 Week Facility: [facility] - Location: Laboratory Ordered By: Abran Camarena Activity Restrictions/Additional Instructions: * Physical Therapy for Total hip arthroplasty: posterior precautions, gait training, ROM, strength * Limit stair climbing * No showering, no tub bath-keep dressing clean, dry and intact * No driving x6 weeks * Continue Lovenox tabs once a day x 4 weeks * Follow up with [facility] Orthopedics in 2 weeks Care Plan Goals: Restore function left hip Health Concerns: Monitor sodium levels Plan of Treatment: Physical Therapy Pain management DVT prophylaxis
--- NOTE | 2020-11-19 16:16 | MHC.CM.PN ---
PT DISCHARGING TO [facility] AT 5PM TODAY WITH [facility] FOR BLS TRANSPORT.
[2020-11-19] MEDS: Gabapentin 300 MG CAPSULE PO (16:26)
== END 2020-11-19 17:20 | disposition skilled nursing facility (03) | DRG 522 ==
PROVIDERS: Internal Medicine; Physician Assistant; Physician Assistant Medical; Student in an Organized Health Care Education/Training Program; Admitting Provider Orthopaedic Surgery; Visit Provider Orthopaedic Surgery
PROC: 0SRS0JA Replacement of Left Hip Joint, Femoral Surface with Synthetic Substitute, Uncemented, Open Approach (ICD-10-PCS; CPT 27125; principal; 2020-11-17 11:50)
DX: S72.002A Fracture of unspecified part of neck of left femur, initial encounter for closed fracture (principal); E44.0 Moderate protein-calorie malnutrition; Z68.1 Body mass index [BMI] 19.9 or less, adult; E22.2 Syndrome of inappropriate secretion of antidiuretic hormone; Z20.822 Contact with and (suspected) exposure to COVID-19; I10 Essential (primary) hypertension; G89.4 Chronic pain syndrome; J44.9 Chronic obstructive pulmonary disease, unspecified; M47.817 Spondylosis without myelopathy or radiculopathy, lumbosacral region; G62.9 Polyneuropathy, unspecified; R91.1 Solitary pulmonary nodule; F17.210 Nicotine dependence, cigarettes, uncomplicated; Z71.6 Tobacco abuse counseling; Z88.0 Allergy status to penicillin; W18.30XA Fall on same level, unspecified, initial encounter; Y93.9 Activity, unspecified; Y92.9 Unspecified place or not applicable; Y99.9 Unspecified external cause status; Z88.5 Allergy status to narcotic agent; Z79.899 Other long term (current) drug therapy
CPT/HCPCS: 36415; 71045; 71250; 72170; 73502; 73560; 80048; 82533; 83880; 83930; 83935; 84300; 84443; 85014; 85018; 85025; 85027; 85610; 86850; 86900; 86901; 86923; 87635; 88304; 88305; 88311; 93005; 93306; 97110; 97162; 97167; 99202; 99283; C1776; J0690; J1650; J2370; J2405; J3010; P9016

== ENCOUNTER 2020-12-07 09:11 | Inpatient (IN) | payer MEDICARE, SELFPAY ==
[2020-12-07] VITALS (11 sets, daily range): BP systolic 99–171; BP diastolic 47–90; PULSE 93–130; RESP 19–22; TEMP 36.4–36.6; O2SAT 97–100; BMI 16.9
--- NOTE | ~2020-12-07 | XR_ITS ---
EXAMINATION: XR CHEST CLINICAL INFORMATION: Shortness of breath COMPARISON: 11/09/2020 TECHNIQUE: Frontal view of the chest was obtained. FINDINGS: Cardiac leads overlie the chest. There is known severe emphysema. Irregularity along the right mid to upper lung is unchanged. No new consolidation. No pleural effusion. No edema. No pneumothorax. The cardiomediastinal silhouette is unchanged, with a tortuous and calcified aorta. Degenerative changes of the spine. XR/XR chest 1V IMPRESSION: Known emphysema. Similar appearance of the irregularity at the right mid to upper lung. No new consolidation.
--- NOTE | ~2020-12-07 | US_ITS ---
EXAMINATION: US VENOUS ULTRASOUND WITH DOPPLER LOWER EXTREMITY, RIGHT CLINICAL INFORMATION: Right leg pain. COMPARISON: None TECHNIQUE: Ultrasound of the deep veins is performed from the hip to the calf with compression sonography and color and pulse Doppler assessment. Spectral analysis with color-flow imaging is performed. FINDINGS: There is normal venous compression and respiratory variation and augmented flow. The visualized common femoral vein, superficial femoral vein, profunda femoral vein, popliteal vein, and the trifurcation region shows no evidence of deep venous thrombosis. There is no significant popliteal fossa cyst. If the patient's symptoms persist, followup ultrasound in 5 days 7 days might be of value to exclude proximal propagation from a non-visualized calf vein. US/US venous duplex LE RT IMPRESSION: No DVT demonstrated in the right lower extremity.
--- NOTE | ~2020-12-07 | CT_ITS ---
EXAMINATION: CT ABDOMEN AND PELVIS WITH CONTRAST CLINICAL INFORMATION: Sacral abscess. Surgical debridement at bedside yesterday. COMPARISON: CT chest 11/12/2020, CT abdomen and pelvis 06/01/2015 TECHNIQUE: Multidetector volumetric images were obtained from the superior aspect of the liver through the pubic symphysis following administration 85 mL of Omnipaque 350 intravenous contrast. Sagittal and coronal reformatted images were obtained on the technologist's workstation. Oral contrast: No This CT examination was performed using dose optimization techniques as appropriate, variously including the following: *Automated exposure control *Adjustment of mA and/or kV according to patient size (this includes techniques or standardized protocols for targeted exams where dose is matched to indication/reason for exam; i.e. extremities or head) *Use of iterative reconstruction technique DLP: 279 mGy-cm FINDINGS: LUNG BASES: Hyperinflation/COPD. Borderline fat-containing Bochdalek hernia left posterior medial base. No infiltrate or effusion. LIVER, GALLBLADDER, AND BILIARY TREE: Liver is normal in size and smooth in contour and uniform in attenuation. No hepatic parenchymal lesion or intrahepatic ductal dilatation. The gallbladder is unremarkable with no evidence of radiopaque gallstones, gallbladder wall thickening, or obvious pericholecystic inflammatory changes. PANCREAS: Unremarkable. SPLEEN: Unremarkable. ADRENAL GLANDS: Unremarkable. KIDNEYS AND URETERS: The kidneys are normal in size, shape, and attenuation. No hydronephrosis, hydroureter, or calculi seen. No perinephric stranding. BLADDER: Unremarkable. GASTROINTESTINAL TRACT: No bowel obstruction or focal inflammatory changes in the bowel or mesentery. The appendix is normal. There is extensive stool throughout the colon. There is no pneumatosis or free air. No abdominal ascites or abdominal fluid collection. There is small amount of ascites in the pouch of Kamran. ABDOMINAL WALL: Several punctate subcutaneous emphysema or gas bubbles anterior right lower quadrant, series 3 images 41-44. No ventral or inguinal hernia. LYMPH NODES: No lymphadenopathy. VASCULAR: There is suspicion for partially nonoccluding thrombus right common femoral vein (axial image series 3/59 and coronal image 26. There is streak artifact from the left hip orthopedic hardware which limits assessment. PELVIC VISCERA: There is open wound with irregular gas distal to the coccyx consistent with the decubitus ulcer. The right gluteus muscle is thickened and has intramuscular fluid with some scattered gas bubbles in the fluid consistent with intramuscular abscess, measuring 2.8 x 4.1 cm by approximately 7 cm in vertical dimension. No intrapelvic extension. OSSEOUS STRUCTURES: Degenerative changes lumbosacral spine. No bony destructive process or osteomyelitis. Results called and discussed with Dr. Prabhjot Colon at 1550 hours and also called to medical record transcriber (Marisol) for Dr. Case at 1555 hours on 12/09/2020. CT/CT abdomen pelvis w con IMPRESSION: 1. Sacral decubitus ulcer with abscess extending into the right psoas muscle measuring 2.8 x 4.1 x 7.0 cm. No intrapelvic extension. Mild pelvic ascites. 2. Question partial nonoccluding intraluminal thrombus right common femoral vein versus artifact. This may be further assessed with right lower extremity venous ultrasound.
--- NOTE | 2020-12-07 09:28 | ECG_ITS ---
Test Reason : DIFICUTY BREATHING Blood Pressure : / mmHG Vent. Rate : 127 BPM Atrial Rate : 070 BPM P-R Int : 000 ms QRS Dur : 090 ms QT Int : 300 ms P-R-T Axes : 000 068 081 degrees QTc Int : 436 ms Poor data quality Undetermined rhythm, likely sinus tachycardia When compared with ECG of 12-NOV-2020 18:18, Serial comparison not possible. Referred By: Jose Ruiz Electronically Signed By:Fuad Leos
--- NOTE | 2020-12-07 09:33 | ED_ITS ---
HPI - SOB/Dyspnea General Chief Complaint: Dyspnea Stated Complaint: AMS PER ,LOW O2SAT (92%4L),HIGH HR Time Seen by Provider: 12/07/20 09:27 Source: patient and EMS Mode of arrival: EMS Limitations: no limitations History of Present Illness HPI Narrative: 70-year-old male came in from home by EMS for difficulty breathing started today this morning, patient had left had fracture on treated with surgical left hip replacement. Under preoperative workup patient had chest CT/x-ray showed new opacity of left upper lobe. Patient still have the vince in the left hip is scheduled to be removed today. Patient on arrival appear and mild respiratory distress, on 2 L nasal cannula oxygen saturation is 94%, patient noticed to be tachycardic seemed to be irregular patient had no history of atrial fibrillation. Related Data Home Medications Medication Instructions Recorded Confirmed gabapentin 300 mg capsule 300 mg PO DAILY PRN 08/12/20 12/07/20 doxycycline hyclate 1 cap PO BID 12/07/20 12/07/20 ibuprofen 1 tab PO TID PRN 12/07/20 12/07/20 urea [Ure-Na] 1 packet PO DAILY 12/07/20 12/07/20 Previous Rx's Medication Instructions Recorded lisinopril 40 mg tablet 40 mg PO DAILY #90 cap 10/04/20 acetaminophen 325 mg PO Q4H PRN 30 Days #240 tab 11/19/20 enoxaparin 40 mg SUBCUT DAILY 60 Days #24 ml 11/19/20 Allergies Allergy/AdvReac Type Severity Reaction Status Date / Time codeine [CODEINE] Allergy Intermediate GI UPSET Verified 11/09/20 15:50 Penicillins [PENICILLINS] Allergy Intermediate ITCHY Verified 11/09/20 15:50 Review of Systems Review of Systems: All other systems are reviewed and are negative Constitutional: Reports as per HPI and Reports no additional constitutional complaints Eyes: Reports as per HPI and Reports no additional eye complaints Reports system reviewed and no additional complaints, except as documented Cardiovascular: Reports as per HPI and Reports no additional cardiovascular complaints Respiratory: Reports as per HPI and Reports no additional respiratory complaints Gastrointestinal: Reports as per HPI and Reports no additional gastrointestinal complaints Genitourinary: Reports no additional female genitourinary complaints Musculoskeletal: Reports no additional musculoskeletal complaints Skin/Breast: Reports system reviewed and no additional complaints, except as docu Psychiatric: Reports no additional psychiatric complaints Endocrine: Reports no additional endocrine complaints Hematologic/Lymphatic: Reports no additional hematologic/lymphatic complaints Allergic/Immunologic: Reports no additional allergic/immunologic complaints Reports system reviewed and no additional complaints, except as documented and Reports Abnormal speech present [facility] Past Medical History Medical History Chronic pain syndrome COPD (chronic obstructive pulmonary disease) Disc degeneration, lumbar Hip fracture Hypertension Knee osteoarthritis Pre-op evaluation Pulmonary nodule Spondylosis of lumbosacral region Surgical History H/O rectal polypectomy Family History Family History Father Heart failure Mother Colon cancer Maternal Aunt Skin cancer Social History Social History Household Members: Spouse Housing: House Alcohol intake: former Smoking Status: Former smoker Tobacco Type: Cigarette Cigarettes Per Day: 10 Years Smoked: 50 Use of substances other than those prescribed or required for medical reasons: No Advance Directives: No Advance Directives Information Provided: No service: No Current occupational status: retired Physical Exam Vital Signs: Vital Signs: Last Vital Signs Temp 98 F 12/07/20 09:22 Pulse 101 H 12/07/20 11:05 Resp 19 12/07/20 11:05 BP 111/51 L 12/07/20 11:05 Pulse Ox 100 12/07/20 10:48 Body Mass Index 16.9 Vital signs have been reviewed as appeared to be correct. Blood pressure in the high range. Heart rate tachycardia and irregular. Respiration rate tachypnea l. Temperature normal. Oxygen saturation normal. Appearance: Alert. Oriented X3. Mild acute respiratory distress, anxious Head: Normal external exam. Normocephalic. Atraumatic. No [place] signs noted. No raccoon eyes noted Eyes: PERRLA. EOMI. Conjunctiva and sclera normal. Eyelids normal. ENT: TM's Normal. Pharynx normal. Uvula midline. Moist mucous membranes. No trismus noted. No drooling noted. No muffled voice noted. Neck: Normal inspection. Neck supple. FROM. No adenopathy. Thyroid Normal. No meningeal signs. No neck mass noted. CVS: Irregular irregular tachycardia. Heart sound normal. No murmurs noted. Pulses normal throughout. Respiratory: No respiratory distress. Painless inspiration. Breath sounds normal. Diffuse mild to moderate expiratory wheezing, mild intercostal retraction, mild bibasilar rales, no crackles noted. Chest nontender. decreased air movement bilaterally.. Abdomen: Soft and nontender. Bowel sounds normal in all 4 quadrants. No distention noted. No organomegaly noted. No visible injury noted. Back: No CVA tenderness. Full range of motion noted. Skin: Skin warm and dry. Normal skin color. Normal skin turgor. No rashes/lesions/lacerations noted. Extremities: No lower extremity edema. Extremities exhibit normal range of motion. Extremities nontender. Neuro: Oriented X 3. No motor deficit. No sensory deficit. Reflexes normal. Course Course Course Narrative: Assessment and plan. 70-year-old male came in with difficulty breathing, initially was in the rapid atrial fibrillation (new onset), exam also was consistent with COPD exacerbation. Patient felt better after heart rate went down to 110 by Cardizem, also after receiving bronchodilator, steroid, and magnesium. Will admit the patient for further evaluation. Empirical antibiotic coverage with zithromax. MDM - SOB/Dyspnea Lab Data Attestation: I reviewed the patient's lab results. Result diagrams: 12/07/20 09:54 12/07/20 09:54 Labs: Lab Results 12/07/20 12/07/20 12/07/20 Range/Units 09:54 09:54 09:54 WBC 23.9 H (4.8-10.8) X10*3/uL RBC 2.82 L (4.60-5.80) X10*6/uL Hgb 9.1 L D (14.0-18.0) g/dl Hct 26.4 L D (42-52) % MCV 93.6 (80-98) fL MCH 32.3 (27.0-33.0) pg MCHC 34.5 (31.0-36.0) g/dl RDW 13.9 (11.0-16.0) % Plt Count 388 D (160-400) X10*3/uL MPV 8.9 L (9.4-12.4) fL Immature Gran % (Auto) 0.8 H (0.0-0.4) % Neut % (Auto) 90.7 H (45-73) % Lymph % (Auto) 4.2 L (20-40) % [place] % (Auto) 4.0 (2-11) % Eos % (Auto) 0.0 (0-4) % Baso % (Auto) 0.3 (0-2) % Lymph # (Auto) 1.0 L (1.2-4.9) X10*3/uL [place] # (Auto) 1.0 (0.1-1.2) X10*3/uL Eos # (Auto) 0.0 (0.0-0.4) X10*3/uL Baso # (Auto) 0.1 (0.0-0.2) X10*3/uL Abs Immat Gran (auto) 0.18 H (0.00-0.03) X10*3/uL Absolute Neuts (auto) 21.7 H (2.0-8.3) X10*3/uL Absolute Nucleated RBC 0.000 (0.0-0.012) X10*3/uL Nucleated RBC % (auto) 0.0 (0.0-0.2) /100WBC Smear Tech's Comments VERIFIED PT 13.4 H (10.8-13.0) SEC INR 1.1 (0.9-1.1) APTT 25.9 (24.1-38.0) SEC O2 Saturation % ABG pH at Pt Temp (7.35-7.45) ABG pH (Temp Correct) (7.35-7.45) ABG pCO2 at Pt Temp (32-45) mmHg ABG pCO2 (Temp Corrct (32-45) mmHg ABG pO2 at Pt Temp (83-108) mmHg ABG pO2 (Temp Correct (83-108) ABG HCO3 (22-26) mmol/L ABG Base Excess (Actual) mmol/L Sodium 132 L (135-145) mmol/L Potassium 4.8 (3.3-5.1) mmol/L Chloride 97 (96-108) mmol/L Carbon Dioxide 23 (22-29) mmol/L Anion Gap 17 (12-20) BUN 36 H (9-16) mg/dL Creatinine 0.80 (0.5-1.4) mg/dL Estim Creat Clear Calc 63.9 Estimated GFR > 60 Random Glucose 115 (60-115) mg/dL Lactic Acid (0.5-2.0) mmol/L Calcium 8.1 L D (8.4-10.2) mg/dL Ammonia (13-55) umol/L Troponin I High Sens (<3.5-35.0) ng/L B-Natriuretic Peptide (<100) pg/mL Lipase 7 L (8-78) U/L COVID-19 ([facility]ER) (Negative) COVID-19 Clin Com 12/07/20 12/07/20 12/07/20 Range/Units 09:54 09:54 09:54 WBC (4.8-10.8) X10*3/uL RBC (4.60-5.80) X10*6/uL Hgb (14.0-18.0) g/dl Hct (42-52) % MCV (80-98) fL MCH (27.0-33.0) pg MCHC (31.0-36.0) g/dl RDW (11.0-16.0) % Plt Count (160-400) X10*3/uL MPV (9.4-12.4) fL Immature Gran % (Auto) (0.0-0.4) % Neut % (Auto) (45-73) % Lymph % (Auto) (20-40) % [place] % (Auto) (2-11) % Eos % (Auto) (0-4) % Baso % (Auto) (0-2) % Lymph # (Auto) (1.2-4.9) X10*3/uL [place] # (Auto) (0.1-1.2) X10*3/uL Eos # (Auto) (0.0-0.4) X10*3/uL Baso # (Auto) (0.0-0.2) X10*3/uL Abs Immat Gran (auto) (0.00-0.03) X10*3/uL Absolute Neuts (auto) (2.0-8.3) X10*3/uL Absolute Nucleated RBC (0.0-0.012) X10*3/uL Nucleated RBC % (auto) (0.0-0.2) /100WBC Smear Tech's Comments PT (10.8-13.0) SEC INR (0.9-1.1) APTT (24.1-38.0) SEC O2 Saturation % ABG pH at Pt Temp (7.35-7.45) ABG pH (Temp Correct) (7.35-7.45) ABG pCO2 at Pt Temp (32-45) mmHg ABG pCO2 (Temp Corrct (32-45) mmHg ABG pO2 at Pt Temp (83-108) mmHg ABG pO2 (Temp Correct (83-108) ABG HCO3 (22-26) mmol/L ABG Base Excess (Actual) mmol/L Sodium (135-145) mmol/L Potassium (3.3-5.1) mmol/L Chloride (96-108) mmol/L Carbon Dioxide (22-29) mmol/L Anion Gap (12-20) BUN (9-16) mg/dL Creatinine (0.5-1.4) mg/dL Estim Creat Clear Calc Estimated GFR Random Glucose (60-115) mg/dL Lactic Acid 2.8 H* (0.5-2.0) mmol/L Calcium (8.4-10.2) mg/dL Ammonia (13-55) umol/L Troponin I High Sens 10.5 (<3.5-35.0) ng/L B-Natriuretic Peptide 157 H (<100) pg/mL Lipase (8-78) U/L COVID-19 ([facility]ER) Negative (Negative) COVID-19 Clin Com See Note 12/07/20 12/07/20 Range/Units 09:54 10:46 WBC (4.8-10.8) X10*3/uL RBC (4.60-5.80) X10*6/uL Hgb (14.0-18.0) g/dl Hct (42-52) % MCV (80-98) fL MCH (27.0-33.0) pg MCHC (31.0-36.0) g/dl RDW (11.0-16.0) % Plt Count (160-400) X10*3/uL MPV (9.4-12.4) fL Immature Gran % (Auto) (0.0-0.4) % Neut % (Auto) (45-73) % Lymph % (Auto) (20-40) % [place] % (Auto) (2-11) % Eos % (Auto) (0-4) % Baso % (Auto) (0-2) % Lymph # (Auto) (1.2-4.9) X10*3/uL [place] # (Auto) (0.1-1.2) X10*3/uL Eos # (Auto) (0.0-0.4) X10*3/uL Baso # (Auto) (0.0-0.2) X10*3/uL Abs Immat Gran (auto) (0.00-0.03) X10*3/uL Absolute Neuts (auto) (2.0-8.3) X10*3/uL Absolute Nucleated RBC (0.0-0.012) X10*3/uL Nucleated RBC % (auto) (0.0-0.2) /100WBC Smear Tech's Comments PT (10.8-13.0) SEC INR (0.9-1.1) APTT (24.1-38.0) SEC O2 Saturation 98.0 % ABG pH at Pt Temp 7.56 H (7.35-7.45) ABG pH (Temp Correct) 7.57 H (7.35-7.45) ABG pCO2 at Pt Temp 24 L (32-45) mmHg ABG pCO2 (Temp Corrct 23 L (32-45) mmHg ABG pO2 at Pt Temp 126 H (83-108) mmHg ABG pO2 (Temp Correct 123 H (83-108) ABG HCO3 22 (22-26) mmol/L ABG Base Excess (Actual) 1.3 mmol/L Sodium (135-145) mmol/L Potassium (3.3-5.1) mmol/L Chloride (96-108) mmol/L Carbon Dioxide (22-29) mmol/L Anion Gap (12-20) BUN (9-16) mg/dL Creatinine (0.5-1.4) mg/dL Estim Creat Clear Calc Estimated GFR Random Glucose (60-115) mg/dL Lactic Acid (0.5-2.0) mmol/L Calcium (8.4-10.2) mg/dL Ammonia 26 (13-55) umol/L Troponin I High Sens (<3.5-35.0) ng/L B-Natriuretic Peptide (<100) pg/mL Lipase (8-78) U/L COVID-19 ([facility]) (Negative) COVID-19 Clin Com Imaging Data Chest x-ray: Radiologist's impression: Known emphysema. Similar appearance of the irregularity at the right mid to upper lung. No new consolidation. ECG Data Interpretation: EKG 1. Atrial fibrillation with rapid ventricular response at 127 beats per minute, inadequate due to multiple artifact. EKG 2. Sinus tachycardia at 110 beats per minute, nonspecific T-wave changes. Discharge Plan Discharge Clinical Impression: Hyponatremia, Atrial fibrillation, new onset, Acute dyspnea, COPD exacerbation Patient Disposition: Admitted As Inpatient
[2020-12-07] MEDS: 0.9 % Sodium Chloride 1,000 ML 999 ML IVCONT (09:36)
[2020-12-07] MEDS: methylPREDNISolone Sod Succ/PF 125 MG/2 ML VIAL IVPUSH (09:39)
[2020-12-07] MEDS: Magnesium Sulfate/H2O 2 GM/50 ML PIGGYBACK IV (09:39)
[2020-12-07] MEDS: dilTIAZem HCL 50 MG/10 ML VIAL 20 MG IVPUSH (10:01)
--- NOTE | 2020-12-07 10:27 | ECG_ITS ---
Test Reason : REPEAT Blood Pressure : / mmHG Vent. Rate : 107 BPM Atrial Rate : 108 BPM P-R Int : 080 ms QRS Dur : 100 ms QT Int : 358 ms P-R-T Axes : 244 079 071 degrees QTc Int : 477 ms Poor data quality Sinus tachycardia with frequent PACs Incomplete right bundle branch block Nonspecific ST and T wave abnormality Abnormal ECG When compared with ECG of 07-DEC-2020 09:31, Poor data quality in the prevous ECG. Cannot perform serial comparison. Referred By: Jose Ruiz Electronically Signed By:Fuad Leos
[2020-12-07 10:36] LABS: Basophils Absolute Auto 0.1 X10*3/uL (0.0-0.2); Basophils Percent Auto 0.3 % (0-2); Hematocrit 26.4 % (42-52); Hemoglobin 9.1 g/dl (14.0-18.0); Imm Gran Abs Auto 0.18 X10*3/uL (0.00-0.03); Imm Gran Pct Auto 0.8 % (0.0-0.4); Lymphocytes Percent Auto 4.2 % (20-40); MANUAL DIFF FLAG SCAN; Mean Corpuscular HGB Conc 34.5 g/dl (31.0-36.0); Mean Corpuscular Hemoglobin 32.3 pg (27.0-33.0); Mean Corpuscular Volume 93.6 fL (80-98); Mean Platelet Volume 8.9 fL (9.4-12.4); Neutrophils Absolute Auto 21.7 X10*3/uL (2.0-8.3); Neutrophils Percent Auto 90.7 % (45-73); Platelet Count 388 X10*3/uL (160-400); Red Blood Count 2.82 X10*6/uL (4.60-5.80); Red Cell Distribution Width 13.9 % (11.0-16.0); SCAN SMEAR FLAG 1; White Blood Count 23.9 X10*3/uL (4.8-10.8)
[2020-12-07] MEDS: Albuterol/Iprat 2.5/0.5MG 3 ML AMPUL.NEB INHALE ×2 (10:44→21:10)
[2020-12-07] MEDS: Albuterol Sulfate (0.083%) 2.5 MG/3 ML VIAL.NEB 5 MG INHALE (10:44)
[2020-12-07 10:46] LABS: INTERNATIONAL NORM RATIO 1.1 (0.9-1.1); Prothrombin Time 13.4 SEC (10.8-13.0)
[2020-12-07 10:48] LABS: Partial Thromboplastin Time 25.9 SEC (24.1-38.0)
[2020-12-07 10:49] LABS: COVID-19 Test Negative (Negative); IDNOW Serial# 9DD0AD1C
[2020-12-07 10:52] LABS: ABG Base Excess 1.3 mmol/L; ABG HCO3 22 mmol/L (22-26); ABG pCO2 24 mmHg (32-45); ABG pCO2 TC 23 mmHg (32-45); ABG pH 7.56 (7.35-7.45); ABG pH TC 7.57 (7.35-7.45); ABG pO2 126 mmHg (83-108); ABG pO2 TC 123 (83-108)
[2020-12-07] MEDS: dilTIAZem HCL 30 MG TABLET PO (10:59)
[2020-12-07 11:00] LABS: SLIDE REVIEW VERIFIED
[2020-12-07] MEDS: oxyCODONE HCl Immed Release 5 MG TABLET PO (11:00)
[2020-12-07] MEDS: Nicotine 21 MG PATCH.TD24 TRANSDERMA (11:00)
[2020-12-07 11:02] LABS: ABG Refer to POC result
[2020-12-07 11:05] LABS: Ammonia 26 umol/L (13-55)
[2020-12-07 11:18] LABS: B Type Natriuretic Peptide 157 pg/mL (<100); Lactic Acid 2.8 mmol/L (0.5-2.0); Troponin-I High Sensitivity 10.5 ng/L (<3.5-35.0)
[2020-12-07 11:19] LABS: Anion Gap 17 (12-20); Blood Urea Nitrogen 36 mg/dL (9-16); Calcium 8.1 mg/dL (8.4-10.2); Carbon Dioxide 23 mmol/L (22-29); Chloride 97 mmol/L (96-108); Creatinine Clr Calc Pharmacy 63.9; Estimated Glomerular Filt Rate > 60; Glucose Random 115 mg/dL (60-115); Lipase 7 U/L (8-78); Potassium 4.8 mmol/L (3.3-5.1); Sodium 132 mmol/L (135-145)
--- NOTE | 2020-12-07 11:39 | PC.NURSE ---
this nurse took report from hailey, upon entering room, patient a&ox3, security monitor sinus tach 104, vitals currently stable, will continue to monitor.
[2020-12-07] MEDS: Azithromycin 500 MG in 0.9 % Sodium Chloride 250 ML 125 MG IV (11:48)
--- NOTE | 2020-12-07 12:04 | PC.NURSE ---
iv antibiotics running per order
[2020-12-07 12:25] LABS: Reflex Lactate? Lactic Acid Added
--- NOTE | 2020-12-07 12:31 | PC.NURSE ---
hospitalist took down dressing to coccyx of patient, provider stated for now to put a dry dressing until she is able to put orders in for the floor, 4x4 with abd and tape applied, picture taken with consent of patient for the chart, will continue to monitor.
--- NOTE | 2020-12-07 13:35 | PC.NURSE ---
repeat lab obtained
[2020-12-07 13:40] LABS: ~Lactic Acid-LAB USE ONLY 2.2 mmol/L (0.5-2.0)
--- NOTE | 2020-12-07 13:51 | PC.NURSE ---
patient a&ox3, vss, pt awaiting bed placement, lt hip has 18 vince from previous surgery, c/o 5/10 hip pain at this time, will continue to monitor.
[2020-12-07 14:25] LABS: Glucose Urine UA NEG (NEG); Leukocyte Esterase Urine NEG (NEG); Nitrite Urine NEG (NEG); Specific Gravity - Urine 1.015 (1.005-1.025); Urine Blood NEG (NEG); Urine Ketones NEG (NEG); Urine Protein NEG (NEG-TRACE)
[2020-12-07 14:26] LABS: Appearance Urine CLEAR; Color Urine YELLOW
--- NOTE | 2020-12-07 14:33 | P.HPHOSP_ITS ---
History of Present Illness Date of Service: 12/07/20 Chief Complaint: sob 70-year-old male presented with shortness of breath , patient has severe COPD at baseline, patient reported he came to emergency room to check his sodium level, patient was also reporting worsening shortness of breath for last few days, denies any cough or sputum, denies any chest pain or sick contact, in the ER found to have AFib new onset patient was given Cardizem IV and patient was switched to sinus tachycardia, denies any fever ,chest pain or palpitation, Patient was found to have leukocytosis, inpatient admission was requested for new onset of AFib and COPD exacerbation patient was found to have leukocytosis etiology not clear, UA was negative, chest x-ray shows emphysematous changes but no infiltrate, patient has sacral ulcer without any obvious drainage but shows some necrotic debris, Of note patient was recently admitted to [facility] and underwent hip surgery for fracture Review of Systems Constitutional: Constitutional: Denies weakness Cardiovascular: Cardiovascular: Reports dyspnea Respiratory: Respiratory: Denies cough and Reports dyspnea Gastrointestinal: Gastrointestinal: Denies vomiting Neurologic: Denies focal weakness and Denies weakness PMFSH Medical History Chronic pain syndrome COPD (chronic obstructive pulmonary disease) Disc degeneration, lumbar Hip fracture Hypertension Knee osteoarthritis Pre-op evaluation Pulmonary nodule Spondylosis of lumbosacral region Family History Father Heart failure Mother Colon cancer Maternal Aunt Skin cancer Surgical History H/O rectal polypectomy Social History Household Members: Spouse Housing: House Alcohol intake: former Smoking Status: Former smoker Tobacco Type: Cigarette Cigarettes Per Day: 10 Years Smoked: 50 Use of substances other than those prescribed or required for medical reasons: No Advance Directives: No Advance Directives Information Provided: No service: No Current occupational status: retired Meds Allergies Allergy/AdvReac Type Severity Reaction Status Date / Time codeine [CODEINE] Allergy Intermediate GI UPSET Verified 11/09/20 15:50 Penicillins [PENICILLINS] Allergy Intermediate ITCHY Verified 11/09/20 15:50 Active Medications: Current Medications Generic Name Dose Route Start Last Admin Trade Name Marcellus PRN Reason Stop Dose Admin Pharmacy Consult 1 each 12/07/20 09:27 Consult Rx Perform Med Rec MISCELLANE ONCE PRN Consult order Sodium Chloride 3 ml 12/07/20 16:00 0.9 % Sodium Chloride Flush 3 M[facility] Home Medications Medication Instructions Recorded Confirmed Last Taken Type gabapentin 300 mg capsule 300 mg PO DAILY PRN 08/12/20 12/07/20 Unknown History doxycycline hyclate 1 cap PO BID 12/07/20 12/07/20 12/07/20 History ibuprofen 1 tab PO TID PRN 12/07/20 12/07/20 Unknown History urea [Ure-Na] 1 packet PO DAILY 12/07/20 12/07/20 12/06/20 History Physical Exam Vital Signs and Narrative: Vital Signs: Last Vital Signs Temp 97.7 F 12/07/20 13:50 Pulse 93 12/07/20 13:50 Resp 20 12/07/20 13:50 BP 99/47 L 12/07/20 13:50 Pulse Ox 97 12/07/20 13:50 Body Mass Index 16.9 Const: General: no acute distress Orientation/consciousness: patient oriented x3 Chest: Chest palpation & inspection: normal inspection of the chest Resp: Auscultation: rhonchi and wheezes Cardio: Jugular venous distension: no JVD Heart sounds: S1 normal heart sound present and S2 normal heart sound present GI: Inspection: Yes normal to inspection Skin: Other: sacral decubitus ulcer with some necrotic tissue no obvious drainage Neuro: General: patient oriented x3 Results Labs CBC and Chem 7: 12/07/20 09:54 12/07/20 09:54 Labs: Laboratory Results - last 24 hr 12/07/20 12/07/20 12/07/20 09:54 09:54 09:54 MCV 93.6 MCH 32.3 MCHC 34.5 RDW 13.9 Plt Count 388 D MPV 8.9 L Immature Gran % (Auto) 0.8 H Neut % (Auto) 90.7 H Lymph % (Auto) 4.2 L [place] % (Auto) 4.0 Eos % (Auto) 0.0 Baso % (Auto) 0.3 Lymph # (Auto) 1.0 L [place] # (Auto) 1.0 Eos # (Auto) 0.0 Baso # (Auto) 0.1 Abs Immat Gran (auto) 0.18 H Absolute Neuts (auto) 21.7 H Absolute Nucleated RBC 0.000 Nucleated RBC % (auto) 0.0 Smear Tech's Comments VERIFIED PT 13.4 H INR 1.1 APTT 25.9 O2 Saturation ABG pH at Pt Temp ABG pH (Temp Correct) ABG pCO2 at Pt Temp ABG pCO2 (Temp Corrct ABG pO2 at Pt Temp ABG pO2 (Temp Correct ABG HCO3 ABG Base Excess (Actual) Anion Gap 17 Estim Creat Clear Calc 63.9 Estimated GFR > 60 Random Glucose 115 Lactic Acid Lactic Acid Fup @ 2Hr Calcium 8.1 L D Ammonia Troponin I High Sens B-Natriuretic Peptide Lipase 7 L Urine Color Urine Appearance Urine pH Ur Specific [place] Urine Protein Urine Glucose (UA) Urine Ketones Urine Blood Urine Nitrite Ur Leukocyte Esterase COVID-19 ([facility]) [employer] 12/07/20 12/07/20 12/07/20 09:54 09:54 09:54 MCV MCH MCHC RDW Plt Count MPV Immature Gran % (Auto) Neut % (Auto) Lymph % (Auto) [place] % (Auto) Eos % (Auto) Baso % (Auto) Lymph # (Auto) [place] # (Auto) Eos # (Auto) Baso # (Auto) Abs Immat Gran (auto) Absolute Neuts (auto) Absolute Nucleated RBC Nucleated RBC % (auto) Smear Tech's Comments PT INR APTT O2 Saturation ABG pH at Pt Temp ABG pH (Temp Correct) ABG pCO2 at Pt Temp ABG pCO2 (Temp Corrct ABG pO2 at Pt Temp ABG pO2 (Temp Correct ABG HCO3 ABG Base Excess (Actual) Anion Gap Estim Creat Clear Calc Estimated GFR Random Glucose Lactic Acid 2.8 H* Lactic Acid Fup @ 2Hr Calcium Ammonia Troponin I High Sens 10.5 B-Natriuretic Peptide 157 H Lipase Urine Color Urine Appearance Urine pH Ur Specific [place] Urine Protein Urine Glucose (UA) Urine Ketones Urine Blood Urine Nitrite Ur Leukocyte Esterase COVID-19 ([facility]) Negative [employer] See Note 12/07/20 12/07/20 12/07/20 09:54 10:46 13:16 MCV MCH MCHC RDW Plt Count MPV Immature Gran % (Auto) Neut % (Auto) Lymph % (Auto) [place] % (Auto) Eos % (Auto) Baso % (Auto) Lymph # (Auto) [place] # (Auto) Eos # (Auto) Baso # (Auto) Abs Immat Gran (auto) Absolute Neuts (auto) Absolute Nucleated RBC Nucleated RBC % (auto) Smear Tech's Comments PT INR APTT O2 Saturation 98.0 ABG pH at Pt Temp 7.56 H ABG pH (Temp Correct) 7.57 H ABG pCO2 at Pt Temp 24 L ABG pCO2 (Temp Corrct 23 L ABG pO2 at Pt Temp 126 H ABG pO2 (Temp Correct 123 H ABG HCO3 22 ABG Base Excess (Actual) 1.3 Anion Gap Estim Creat Clear Calc Estimated GFR Random Glucose Lactic Acid Lactic Acid Fup @ 2Hr 2.2 H* Calcium Ammonia 26 Troponin I High Sens B-Natriuretic Peptide Lipase Urine Color Urine Appearance Urine pH Ur Specific [place] Urine Protein Urine Glucose (UA) Urine Ketones Urine Blood Urine Nitrite Ur Leukocyte Esterase COVID-19 ([facility]) COVID-[employer] 12/07/20 14:16 MCV MCH MCHC RDW Plt Count MPV Immature Gran % (Auto) Neut % (Auto) Lymph % (Auto) [place] % (Auto) Eos % (Auto) Baso % (Auto) Lymph # (Auto) [place] # (Auto) Eos # (Auto) Baso # (Auto) Abs Immat Gran (auto) Absolute Neuts (auto) Absolute Nucleated RBC Nucleated RBC % (auto) Smear Tech's Comments PT INR APTT O2 Saturation ABG pH at Pt Temp ABG pH (Temp Correct) ABG pCO2 at Pt Temp ABG pCO2 (Temp Corrct ABG pO2 at Pt Temp ABG pO2 (Temp Correct ABG HCO3 ABG Base Excess (Actual) Anion Gap Estim Creat Clear Calc Estimated GFR Random Glucose Lactic Acid Lactic Acid Fup @ 2Hr Calcium Ammonia Troponin I High Sens B-Natriuretic Peptide Lipase Urine Color YELLOW Urine Appearance CLEAR Urine pH 6.0 Ur Specific [place] 1.015 Urine Protein NEG Urine Glucose (UA) NEG Urine Ketones NEG Urine Blood NEG Urine Nitrite NEG Ur Leukocyte Esterase NEG COVID-19 ([facility]) COVID-19 [employer] Com Imaging Radiologist's Impressions: Impressions Chest X-Ray 12/07/20 09:28 IMPRESSION: Known emphysema. Similar appearance of the irregularity at the right mid to upper lung. No new consolidation. Assessment and Plan (1) Atrial fibrillation, new onset: Status: Acute (2) COPD exacerbation: Status: Acute (3) Hyponatremia: Status: Acute (4) Pulmonary nodule: Status: Acute (5) History of left hip hemiarthroplasty: Status: Acute 70-year-old male presented to check her sodium and was also reporting worsening shortness of breath patient was found to be in new onset of AFib with RVR received Cardizem and converted to sinus tach, inpatient admission was requested for COPD exacerbation and New onset of AFib with RVR New onset of AFib with RVR received IV Cardizem converted to sinus tachycardia monitor on telemetry not on any anticoagulation will get Cardiology consult recent echocardiogram shows normal LVF COPD exacerbation continue nebulizer scheduled and as needed start steroids oxygen supplementation as needed leukocytosis SIRS etiology not clear denies any fever, UA and chest x-ray on admission negative patient has sacral ulcer with no obvious drainage not sure if infected hold antibiotic given no source follow-up blood culture sacral decubitus ulcer with necrotic continue dressing frequent position change will get surgery consult for possible debridement lactic acidosis likely secondary to nebulizer treatment not from sepsis trend lactate DVT prophylax Lovenox wishes to be full code
[2020-12-07 15:20] LABS: Reflex Lactate? 2 Y
--- NOTE | 2020-12-07 16:12 | PC.NURSE ---
report called to floor
[2020-12-07 16:20] LABS: ~Lactic Acid-LAB USE ONLY 3.4 mmol/L (0.5-2.0)
[2020-12-07] MEDS: 0.9 % Sodium Chloride Flush 3 ML SYRINGE IVFLUSH (17:41)
[2020-12-08] VITALS (8 sets, daily range): BP systolic 111–164; BP diastolic 57–78; PULSE 77–107; RESP 16–18; TEMP 36.1–37.2; O2SAT 95–100; BMI 16.9
[2020-12-08] MEDS: 0.9 % Sodium Chloride Flush 3 ML SYRINGE IVFLUSH ×4 (00:03→20:23)
[2020-12-08 06:43] LABS: Anion Gap 16 (12-20); Blood Urea Nitrogen 28 mg/dL (9-16); Calcium 7.7 mg/dL (8.4-10.2); Carbon Dioxide 19 mmol/L (22-29); Chloride 100 mmol/L (96-108); Creatinine Clr Calc Pharmacy 74.1; Estimated Glomerular Filt Rate > 60; Glucose Random 138 mg/dL (60-115); Potassium 4.9 mmol/L (3.3-5.1); Sodium 130 mmol/L (135-145)
[2020-12-08 06:45] LABS: Hematocrit 23.2 % (42-52); Mean Corpuscular HGB Conc 34.5 g/dl (31.0-36.0); Mean Corpuscular Hemoglobin 31.6 pg (27.0-33.0); Mean Corpuscular Volume 91.7 fL (80-98); Mean Platelet Volume 9.1 fL (9.4-12.4); Platelet Count 321 X10*3/uL (160-400); Red Blood Count 2.53 X10*6/uL (4.60-5.80); White Blood Count 22.2 X10*3/uL (4.8-10.8)
[2020-12-08 07:14] LABS: Band Neutrophils Percent 10 % (3-5); Lymphocytes Absolute Manual 0.7 X10*3/uL (0.6-4.8); Lymphocytes Percent Manual 3 % (20-40); Monocytes Absolute Manual 0.4 X10*3/uL (0.0-1.2); Monocytes Percent Manual 2 % (2-11); Neutrophils Absolute Manual 21.1 X10*3/uL (2.2-7.9); Neutrophils Percent Manual 85 % (45-73)
[2020-12-08 07:17] LABS: Acanthocytes 1+; RBC Morphology NOTED
[2020-12-08 07:19] LABS: Hypochromasia 1+; Platelet Estimate NORMAL (NORMAL); Platelet Morphology Comment NORMAL
[2020-12-08] MEDS: Albuterol/Iprat 2.5/0.5MG 3 ML AMPUL.NEB INHALE ×2 (07:41→15:25)
[2020-12-08] MEDS: Enoxaparin Sodium 40 MG/0.4 ML SYRINGE SUBCUT (08:43)
[2020-12-08] MEDS: Urea 15 GM POWDER PO (08:43)
--- NOTE | 2020-12-08 09:27 | MHC.CM.PN ---
CM met with Patient and addressed IMM, providing Patient with original and a copy placed on the chart. CM also spoke with /HCP/Abbey at [phone]. Patient lives in a house with his and uses a walker to assist with mobility. 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 Patient's first choice Rehab is [facility] and is open to area SNF referrals.PCP is DR.orris Ibarra.CM will follow.
[2020-12-08] MEDS: Nicotine 14 MG PATCH.TD24 TRANSDERMA (10:57)
[2020-12-08] MEDS: oxyCODONE HCl Immed Release 5 MG TABLET PO ×2 (10:57→20:21)
--- NOTE | 2020-12-08 11:25 | MHC.CLN ---
RE: CONSULT PT IS MALNOURISHED RECOMMEND ENSURE TID TO INCREASE KCALS; PT RECEPTIVE TO DRINKING CHOCOLATE FLAVOR SUPP PROVIDES 540CC FREE WATER FOR FLUID RESTRICTION-KITCHEN AWARE WILL ADD ARNOLD AND PROSOURCE TO PROMOTE WOUND HEALING SEE ALSO CLINICAL NUTRITION ASSESSMENT
--- NOTE | 2020-12-08 13:40 | HO.PM.IMPN ---
Subjective Subjective Date of Service: 12/09/20 Interval History: patient seen and examined at bedside patient reported breathing improving Constitutional Constitutional: Denies weakness Cardiovascular Cardiovascular: Reports dyspnea Respiratory Respiratory: Denies cough and Reports dyspnea Gastrointestinal Gastrointestinal: Denies vomiting Neurologic Neurologic: Denies focal weakness and Denies weakness Physical Exam Vital Signs: Vital Signs: Last Vital Signs Temp 98 F 12/08/20 11:05 Pulse 98 12/08/20 11:05 Resp 18 12/08/20 11:05 BP 123/63 12/08/20 11:05 Pulse Ox 100 12/08/20 11:05 Body Mass Index 16.9 Const: General: no acute distress Orientation/consciousness: patient oriented x3 Chest: Chest palpation & inspection: normal inspection of the chest Resp: Auscultation: rhonchi and wheezes Cardio: Jugular venous distension: no JVD Heart sounds: S1 normal heart sound present and S2 normal heart sound present GI: Inspection: Yes normal to inspection Skin: Other: sacral decubitus ulcer with some necrotic tissue no obvious drainage Neuro: General: patient oriented x3 Objective Data Current Medications Generic Name Dose Route Start Last Admin Trade Name Freq PRN Reason Stop Dose Admin Albuterol/Ipratropium 3 ml 12/07/20 20:00 12/08/20 07:41 Albuterol/Iprat 2.5/0.5mg 3 Ml Ampul.Neb INHALE 3 ml RQ6H WHILE AWAKE HIPOLITO Administration Enoxaparin Sodium 40 mg 12/08/20 09:00 12/08/20 08:43 Enoxaparin Sodium 40 Mg/0.4 Ml Syringe SUBCUT 40 mg DAILY HIPOLITO Administration Gabapentin 300 mg 12/07/20 17:30 Gabapentin 300 Mg Capsule PO DAILY PRN Pain Nicotine 14 mg 12/08/20 10:15 12/08/20 10:57 Nicotine 14 Mg Patch.Td24 TRANSDERMA 14 mg DAILY HIPOLITO Administration Oxycodone HCl 5 mg 12/08/20 10:10 12/08/20 10:57 Oxycodone Hcl Immed Release 5 Mg Tablet PO 5 mg BID PRN Administration Pain, Moderate (Pain Scale 4-6 Pharmacy Consult 1 each 12/07/20 09:27 Consult Rx Perform Med Rec MISCELLANE ONCE PRN Consult order Sodium Chloride 3 ml 12/07/20 16:00 12/08/20 08:43 0.9 % Sodium Chloride Flush 3 Ml Syringe IVFLUSH 3 ml QSHIFT HIPOLITO Administration Urea 15 gm 12/08/20 09:00 12/08/20 08:43 Urea 15 Gm Powder PO 15 gm DAILY HIPOLITO Administration Labs CBC & Chem 7: 12/09/20 08:45 12/09/20 08:45 Microbiology Microbiology Results: Microbiology 12/07/20 09:54 Blood - Venous Blood Culture - Preliminary No growth after 24 hours. 12/07/20 09:54 Blood - Venous Blood Culture - Final Assessment and Plan (1) Atrial fibrillation, new onset: Status: Acute (2) COPD exacerbation: Status: Acute (3) Hyponatremia: Status: Acute (4) Pulmonary nodule: Status: Acute (5) History of left hip hemiarthroplasty: Status: Acute Assessment and Plan: 70-year-old male presented to check her sodium and was also reporting worsening shortness of breath patient was found to be in new onset of AFib with RVR received Cardizem and converted to sinus tach, inpatient admission was requested for COPD exacerbation and New onset of AFib with RVR New onset of AFib with RVR resolved currently in sinus rhythm received IV Cardizem monitor on telemetry not on any anticoagulation Cardiology consult pending recent echocardiogram shows normal LVF COPD exacerbation continue nebulizer scheduled and as needed oxygen supplementation as needed steroids leukocytosis SIRS etiology not clear denies any fever, UA and chest x-ray on admission negative patient has sacral ulcer with no obvious drainage not sure if infected surgery consulted hold antibiotic given no source follow-up blood culture sacral decubitus ulcer with necrotic continue dressing frequent position change surgery consult for possible debridement pending lactic acidosis likely secondary to nebulizer treatment not from sepsis trend lactate DVT prophylax Lovenox wishes to be full code
--- NOTE | 2020-12-08 16:38 | PM.CNGS ---
History of Present Illness Consult details Consult date: 12/08/20 Requesting physician: Prabhjot Colon Narrative: 70-year-old male patient presenting with complaints of back pain, found to have an area of dark skin over the coccyx and sacrum suggestive of a sacral decubitus. Patient presented to the ED from home after having difficulty breathing, and was admitted to the hospitalist service. He recently fractured his left hip and is status post hip replacement on 11/09/2020. Surgical consultation is requested for management of the decubitus ulcer. Review of Systems Review of Systems: Yes Unobtainable due to mental condition PMFSH Past Medical History Medical History Chronic pain syndrome COPD (chronic obstructive pulmonary disease) Disc degeneration, lumbar Hip fracture Hypertension Knee osteoarthritis Pre-op evaluation Pulmonary nodule Spondylosis of lumbosacral region Family History Family History Father Heart failure Mother Colon cancer Maternal Aunt Skin cancer Surgical History Surgical History H/O rectal polypectomy Social History Social History Household Members: Spouse Housing: House Alcohol intake: former Smoking Status: Former smoker Tobacco Type: Cigarette Cigarettes Per Day: 10 Years Smoked: 50 Patient Interested in Nicotine Replacement: Yes Second Hand Smoke Exposure: No Use of substances other than those prescribed or required for medical reasons: No Currently Displaying Signs/Symptoms of Drug Intoxication Withdrawal: No Have you been hit, kicked, punched, or otherwise hurt by someone within the past year? If so, by whom?: No Do you feel safe in your current relationship?: Yes Is there a partner from a previous relationship who is making you feel unsafe now?: No Are you made to feel afraid or neglected: No Advance Directives: No Advance Directives Information Provided: No Do you have thoughts of harming others: None Do you have a plan to hurt others: No Plan service: No Current occupational status: retired Meds Allergies Allergy/AdvReac Type Severity Reaction Status Date / Time codeine [CODEINE] Allergy Intermediate GI UPSET Verified 11/09/20 15:50 Penicillins [PENICILLINS] Allergy Intermediate ITCHY Verified 11/09/20 15:50 Active Medications: Current Medications Generic Name Dose Route Start Last Admin Trade Name Marcellus PRN Reason Stop Dose Admin Albuterol/Ipratropium 3 ml 12/07/20 20:00 12/08/20 15:25 Albuterol/Iprat 2.5/0.5mg 3 Ml Ampul.Neb INHALE 3 ml RQ6H WHILE AWAKE HIPOLITO Administration Enoxaparin Sodium 40 mg 12/08/20 09:00 12/08/20 08:43 Enoxaparin Sodium 40 Mg/0.4 Ml Syringe SUBCUT 40 mg DAILY HIPOLITO Administration Gabapentin 300 mg 12/07/20 17:30 Gabapentin 300 Mg Capsule PO DAILY PRN Pain Nicotine 14 mg 12/08/20 10:15 12/08/20 10:57 Nicotine 14 Mg Patch.Td24 TRANSDERMA 14 mg DAILY HIPOLITO Administration Oxycodone HCl 5 mg 12/08/20 10:10 12/08/20 10:57 Oxycodone Hcl Immed Release 5 Mg Tablet PO 5 mg BID PRN Administration Pain, Moderate (Pain Scale 4-6 Pharmacy Consult 1 each 12/07/20 09:27 Consult Rx Perform Med Rec MISCELLANE ONCE PRN Consult order Sodium Chloride 3 ml 12/07/20 16:00 12/08/20 16:20 0.9 % Sodium Chloride Flush 3 Ml Syringe IVFLUSH 3 ml QSHIFT HIPOLITO Administration Urea 15 gm 12/08/20 09:00 12/08/20 08:43 Urea 15 Gm Powder PO 15 gm DAILY HIPOLITO Administration Home Medications Medication Instructions Recorded Confirmed Last Taken Type gabapentin 300 mg capsule 300 mg PO DAILY PRN 08/12/20 12/07/20 Unknown History doxycycline hyclate 1 cap PO BID 12/07/20 12/07/20 12/07/20 History ibuprofen 1 tab PO TID PRN 12/07/20 12/07/20 Unknown History urea [Ure-Na] 1 packet PO DAILY 12/07/20 12/07/20 12/06/20 History Physical Exam Vital Signs: Vital Signs: Last Vital Signs Temp 97.9 F 12/08/20 15:58 Pulse 95 12/08/20 15:58 Resp 16 12/08/20 15:58 BP 132/64 03/09/21 15:58 Pulse Ox 100 12/08/20 15:58 Body Mass Index 16.9 Const: General: cooperative, no acute distress, alert and ill appearing Neck: Neck: Yes full ROM Resp: Effort & Inspection: normal respiratory effort, no cough and no stridor GI: Other: Examination of the perianal skin reveals a 5 x 4 cm area of necrotic skin with fluctuance to palpation. Findings are suggestive of necrotic skin with underlying abscess. No open wound is identified at this time. Skin: Full body images: 1. Area of necrotic skin Extrem: General: Yes no clubbing, cyanosis or edema Results Labs Result diagrams: 12/08/20 05:40 12/08/20 05:40 Labs: Abnormal lab results 12/08/20 12/08/20 Range/Units 05:40 05:40 WBC 22.2 H (4.8-10.8) X10*3/uL RBC 2.53 L (4.60-5.80) X10*6/uL Hgb 8.0 L (14.0-18.0) g/dl Hct 23.2 L (42-52) % MPV 9.1 L (9.4-12.4) fL Neutrophils % (Manual) 85 H (45-73) % Band Neutrophils % 10 H (3-5) % Lymphocytes % (Manual) 3 L (20-40) % Abs Neuts (Manual) 21.1 H (2.2-7.9) X10*3/uL Sodium 130 L (135-145) mmol/L Carbon Dioxide 19 L (22-29) mmol/L BUN 28 H (9-16) mg/dL Random Glucose 138 H (60-115) mg/dL Calcium 7.7 L (8.4-10.2) mg/dL Short CBC 12/08/20 Range/Units 05:40 WBC 22.2 H (4.8-10.8) X10*3/uL Hgb 8.0 L (14.0-18.0) g/dl Hct 23.2 L (42-52) % Plt Count 321 (160-400) X10*3/uL BMP 12/08/20 05:40 Sodium 130 L Potassium 4.9 Chloride 100 Carbon Dioxide 19 L BUN 28 H Creatinine 0.69 Calcium 7.7 L Urine 12/07/20 Range/Units 14:16 Urine Color YELLOW Urine Appearance CLEAR Urine pH 6.0 (5.0-8.0) Ur Specific [place] 1.015 (1.005-1.025) Urine Protein NEG (NEG-TRACE) MG/DL Urine Glucose (UA) NEG (NEG) MG/DL All other labs normal. Assessment and Plan (1) Sacral decubitus ulcer, stage IV: Status: Acute 70-year-old male patient presenting with a the sacral decubitus ulcer with necrotic skin and underlying abscess. I reviewed the findings with the patient and recommended bedside debridement and drainage of the abscess. After discussion of the procedure, risks, and alternatives, he consented to the procedure. This was performed at the bedside with production of a large purulence collection. The purulence fluid had a fecal in smell. Viable tissue was noted at the wound base. Wounds were packed with sterile gauze followed by a foam dressing. Recommend repeat changing dressing 3 times daily and packing wound with dry gauze. Procedures Procedure Note Procedure Note: Procedure: Debridement of sacral decubitus ulcer and drainage of abscess Indications: 5 x 4 cm necrotic skin with fluctuance in the sacral skin Findings: 5 x 4 cm full-thickness skin necrosis with necrotic subcutaneous tissue and muscle. This was debrided down to viable tissue. Specimen: None Procedure details: Patient was placed in a left lateral decubitus position. The site of surgery as confirmed by the patient and informed consent assured. The skin was prepped with Betadine and draped in a sterile fashion. Local anesthesia consisting of 1% lidocaine with epinephrine was infiltrated around the area of necrosis. A 15 blade scalpel was then used to debride the necrotic skin. A large purulence, fecal and collection was drained. The wounds were irrigated with saline solution. Wounds were then packed with dry gauze followed by a foam gauze dressing. Patient tolerated the procedure well.
--- NOTE | 2020-12-08 19:12 | P.CONCA_ITS ---
History of Present Illness History of Present Illness Date of Service: 12/08/20 Requesting physician: Prabhjot Colon Chief complaint: COPD ?AFib Narrative: 70-year-old gentleman background history of sacral decubitus ulcer stage IV, hyponatremia and advanced COPD. He presented to ER with dyspnea due to COPD. There was concern about question atrial fibrillation on his EKG. Is documented that he received Cardizem and then reverted to sinus rhythm. Discussing with him he had no palpitations. Telemetry and EKGs were reviewed which did not show any convincing evidence of atrial fibrillation. His telemetry currently has been sinus. His EKGs have sinus rhythm with a a lot of PACs. He has no chest pain or shortness of breath. His main complaint is the sacral decubitus ulcer. Review of Systems Review of Systems: Low back pain PMFSH Past Medical History Medical History Chronic pain syndrome COPD (chronic obstructive pulmonary disease) Disc degeneration, lumbar Hip fracture Hypertension Knee osteoarthritis Pre-op evaluation Pulmonary nodule Spondylosis of lumbosacral region Family History Family History Father Heart failure Mother Colon cancer Maternal Aunt Skin cancer Surgical History Surgical History H/O rectal polypectomy Social History Social History Household Members: Spouse Housing: House Alcohol intake: former Smoking Status: Former smoker Tobacco Type: Cigarette Cigarettes Per Day: 10 Years Smoked: 50 Patient Interested in Nicotine Replacement: Yes Second Hand Smoke Exposure: No Use of substances other than those prescribed or required for medical reasons: No Currently Displaying Signs/Symptoms of Drug Intoxication Withdrawal: No Have you been hit, kicked, punched, or otherwise hurt by someone within the past year? If so, by whom?: No Do you feel safe in your current relationship?: Yes Is there a partner from a previous relationship who is making you feel unsafe now?: No Are you made to feel afraid or neglected: No Advance Directives: No Advance Directives Information Provided: No Do you have thoughts of harming others: None Do you have a plan to hurt others: No Plan service: No Current occupational status: retired Meds Allergies Allergy/AdvReac Type Severity Reaction Status Date / Time codeine [CODEINE] Allergy Intermediate GI UPSET Verified 11/09/20 15:50 Penicillins [PENICILLINS] Allergy Intermediate ITCHY Verified 11/09/20 15:50 Active Medications: Current Medications Generic Name Dose Route Start Last Admin Trade Name Freq PRN Reason Stop Dose Admin Albuterol/Ipratropium 3 ml 12/07/20 20:00 12/08/20 15:25 Albuterol/Iprat 2.5/0.5mg 3 Ml Ampul.Neb INHALE 3 ml RQ6H WHILE AWAKE HIPOLITO Administration Enoxaparin Sodium 40 mg 12/08/20 09:00 12/08/20 08:43 Enoxaparin Sodium 40 Mg/0.4 Ml Syringe SUBCUT 40 mg DAILY HIPOLITO Administration Gabapentin 300 mg 12/07/20 17:30 Gabapentin 300 Mg Capsule PO DAILY PRN Pain Nicotine 14 mg 12/08/20 10:15 12/08/20 10:57 Nicotine 14 Mg Patch.Td24 TRANSDERMA 14 mg DAILY HIPOLITO Administration Oxycodone HCl 5 mg 12/08/20 10:10 12/08/20 10:57 Oxycodone Hcl Immed Release 5 Mg Tablet PO 5 mg BID PRN Administration Pain, Moderate (Pain Scale 4-6 Pharmacy Consult 1 each 12/07/20 09:27 Consult Rx Perform Med Rec MISCELLANE ONCE PRN Consult order Sodium Chloride 3 ml 12/07/20 16:00 12/08/20 16:20 0.9 % Sodium Chloride Flush 3 Ml Syringe IVFLUSH 3 ml QSHIFT HIPOLITO Administration Urea 15 gm 12/08/20 09:00 12/08/20 08:43 Urea 15 Gm Powder PO 15 gm DAILY HIPOLITO Administration Home Medications Medication Instructions Recorded Confirmed Last Taken Type gabapentin 300 mg capsule 300 mg PO DAILY PRN 08/12/20 12/07/20 Unknown History doxycycline hyclate 1 cap PO BID 12/07/20 12/07/20 12/07/20 History ibuprofen 1 tab PO TID PRN 12/07/20 12/07/20 Unknown History urea [Ure-Na] 1 packet PO DAILY 12/07/20 12/07/20 12/06/20 History Physical Exam Vital Signs: Vital Signs: Last Vital Signs Temp 97.9 F 12/08/20 15:58 Pulse 95 12/08/20 15:58 Resp 16 12/08/20 15:58 BP 132/64 12/08/20 15:58 Pulse Ox 100 12/08/20 15:58 Body Mass Index 16.9 GENERAL APPEARANCE: in no acute distress, frail. HEENT: unremarkable. HEAD: normocephalic, atraumatic. NECK/THYROID: no carotid bruit, no jugular venous distention. SKIN: no suspicious lesions, warm and dry. HEART: Systolic murmur aortic area with preserved 2nd heart sound, regular rate and rhythm, S1, S2 normal. LUNGS: clear to auscultation bilaterally. ABDOMEN: normal, bowel sounds present, soft, nontender, nondistended. EXTREMITIES: no clubbing, cyanosis, or edema. PERIPHERAL PULSES: equal. NEUROLOGIC: nonfocal, alert and oriented. PSYCH: mood/affect full range. Results Labs and Meds Result diagrams: 12/08/20 05:40 12/08/20 05:40 Lab results: Laboratory Results - last 24 hr 12/08/20 12/08/20 05:40 05:40 WBC 22.2 H RBC 2.53 L Hgb 8.0 L Hct 23.2 L MCV 91.7 MCH 31.6 MCHC 34.5 RDW 14.0 Plt Count 321 MPV 9.1 L Immature Gran % (Auto) Cancelled Neut % (Auto) Cancelled Lymph % (Auto) Cancelled [place] % (Auto) Cancelled Eos % (Auto) Cancelled Baso % (Auto) Cancelled Lymph # (Auto) Cancelled [place] # (Auto) Cancelled Eos # (Auto) Cancelled Baso # (Auto) Cancelled Abs Immat Gran (auto) Cancelled Absolute Neuts (auto) Cancelled Absolute Nucleated RBC 0.000 Nucleated RBC % (auto) 0.0 Neutrophils % (Manual) 85 H Band Neutrophils % 10 H Lymphocytes % (Manual) 3 L Monocytes % (Manual) 2 Abs Neuts (Manual) 21.1 H Lymphocytes # (Manual) 0.7 Monocytes # (Manual) 0.4 Platelet Estimate NORMAL Plt Morphology Comment NORMAL RBC Morphology NOTED Hypochromasia 1+ Acanthocytes (Spur) 1+ Sodium 130 L Potassium 4.9 Chloride 100 Carbon Dioxide 19 L Anion Gap 16 BUN 28 H Creatinine 0.69 Estim Creat Clear Calc 74.1 Estimated GFR > 60 Random Glucose 138 H Calcium 7.7 L Assessment and Plan (1) Tachycardia: Status: Acute Pleasant 70 gentleman presenting for COPD exacerbation. He was noticed to be tachycardic. There is question about atrial fibrillation in him. It is documented that he see Cardizem and then reverted to sinus rhythm. So far his telemetry as well as EKGs have not shown atrial fibrillation. If there is a tear rhythm strip showing atrial fibrillation then we can discuss about anticoagulation. He is currently not getting anticoagulation because of anemia. I think currently there is no convincing evidence for atrial fibrillation. At discharge we can arrange a cardiac event monitor in case we do not see any obvious AFib on him. Currently I do not see any convincing evidence of AFib. Thank you for allowing me to participate in the care of your patient. Please feel free to contact me if you have any questions.
[2020-12-09] VITALS (9 sets, daily range): BP systolic 124–166; BP diastolic 56–81; PULSE 89–108; RESP 18–20; TEMP 36.1–36.5; O2SAT 95–100
[2020-12-09] MEDS: Albuterol/Iprat 2.5/0.5MG 3 ML AMPUL.NEB INHALE ×3 (07:16→19:54)
[2020-12-09] MEDS: Nicotine 14 MG PATCH.TD24 TRANSDERMA (07:41)
[2020-12-09] MEDS: 0.9 % Sodium Chloride Flush 3 ML SYRINGE IVFLUSH ×3 (07:43→23:58)
--- NOTE | 2020-12-09 07:51 | PM.PNORT ---
Subjective Subjective Date of Service: 12/09/20 Principal diagnosis: LT hip hemiarthroplasty Interval history: s/p left hip hemiarthoplasty 11/19/20 admitted to [facility] – [place] due to COPD exac. and new onset afib with RVR Left hip doing well No concerns Physical Exam Vital Signs: Vital Signs: Last Vital Signs Temp 97 F 12/09/20 07:03 Pulse 89 12/09/20 07:17 Resp 20 12/09/20 07:03 BP 124/56 L 12/09/20 07:03 Pulse Ox 99 12/09/20 07:03 Body Mass Index 16.9 Extrem: Other: left hip incision well healed. No erythema or edema, He is laying on his back with hips flexed. Progress Note: A&P Assessment and plan (1) History of left hip hemiarthroplasty: Status: Acute Assessment and Plan: PT/OT for LT hip hemiarthroplasty-posterior precautions Fall Risk Details Current Medications: Current Medications Generic Name Dose Route Start Last Admin Trade Name Freq PRN Reason Stop Dose Admin Albuterol/Ipratropium 3 ml 12/07/20 20:00 12/09/20 07:16 Albuterol/Iprat 2.5/0.5mg 3 Ml Ampul.Neb INHALE 3 ml RQ6H WHILE AWAKE HIPOLITO Administration Enoxaparin Sodium 40 mg 12/08/20 09:00 12/08/20 08:43 Enoxaparin Sodium 40 Mg/0.4 Ml Syringe SUBCUT 40 mg DAILY HIPOLITO Administration Gabapentin 300 mg 12/07/20 17:30 Gabapentin 300 Mg Capsule PO DAILY PRN Pain Nicotine 14 mg 12/08/20 10:15 12/09/20 07:41 Nicotine 14 Mg Patch.Td24 TRANSDERMA 14 mg DAILY HIPOLITO Administration Oxycodone HCl 5 mg 12/08/20 10:10 12/08/20 20:21 Oxycodone Hcl Immed Release 5 Mg Tablet PO 5 mg BID PRN Administration Pain, Moderate (Pain Scale 4-6 Pharmacy Consult 1 each 12/07/20 09:27 Consult Rx Perform Med Rec MISCELLANE ONCE PRN Consult order Sodium Chloride 3 ml 12/07/20 16:00 12/09/20 07:43 0.9 % Sodium Chloride Flush 3 Ml Syringe IVFLUSH 3 ml QSHIFT HIPOLITO Administration Urea 15 gm 12/08/20 09:00 12/08/20 08:43 Urea 15 Gm Powder PO 15 gm DAILY HIPOLITO Administration Time Spent With Patient Time: Total time spent is greater than 50% in coordination of care (as documented) at patient's floor/unit and/or counseling patient: Time with patient: less than 15 minutes
--- NOTE | 2020-12-09 08:10 | P.CDIC_ITS ---
CDI Concurrent Query Service Date: 12/09/20 Documentation Clarification: Please clarify if you are treating a proba ble/suspected/likely or confirmed: Mild Protein Calorie Malnutrition Moderate Protein Calorie Malnutrition Severe Protein Calorie Malnutrition Provider Response: Moderate Protein-Calorie Malnutrition PLEASE DO NOT DELETE/MODIFY EXISTING CONTENT Additional information is needed in order to code to the highest accuracy and appropriate Severity of Illness (SOI). Please clarify the information noted below in your progress notes and discharge summary. Risk Factors/Clinical Indicators/Treatments 70 year old male admitted with Atrial Fibrillation, new onset with RVR, COPD Exacerbation, Hyponatremia, SIRS, Sacral Decubitus Ulcer. Per Nutrition Note 12/08/20: Patient is malnourished, recommend Ensure TID to increase Kcals, will add Nadeem and Pro- source to promote wound healing HT 5'10 , WT 53.4 Kg BMI 16.9 CDS: Consuelo Merida RN Contact Number: [phone] Please Review the information above and exercise your independent professional judgment in responding to the query. If you concur, pleas document in the PROGRESS NOTES and DISCHARGE SUMMARY. If you do not agree with the query, please document in the query above. THIS QUERY IS PART OF THE PERMANENT MEDICAL RECORD
[2020-12-09 09:18] LABS: MANUAL DIFF FLAG NO
[2020-12-09 09:20] LABS: Basophils Percent Auto 0.2 % (0-2); Eosinophils Percent Auto 0.1 % (0-4); Hematocrit 26.3 % (42-52); Imm Gran Abs Auto 0.12 X10*3/uL (0.00-0.03); Imm Gran Pct Auto 0.5 % (0.0-0.4); Lymphocytes Absolute Auto 1.8 X10*3/uL (1.2-4.9); Lymphocytes Percent Auto 8.3 % (20-40); Mean Corpuscular HGB Conc 34.2 g/dl (31.0-36.0); Mean Corpuscular Volume 93.6 fL (80-98); Mean Platelet Volume 9.2 fL (9.4-12.4); Monocytes Percent Auto 4.6 % (2-11); Neutrophils Absolute Auto 18.8 X10*3/uL (2.0-8.3); Neutrophils Percent Auto 86.3 % (45-73); Platelet Count 288 X10*3/uL (160-400); Red Blood Count 2.81 X10*6/uL (4.60-5.80); Red Cell Distribution Width 14.3 % (11.0-16.0); White Blood Count 21.8 X10*3/uL (4.8-10.8)
[2020-12-09 09:45] LABS: Anion Gap 15 (12-20); Blood Urea Nitrogen 35 mg/dL (9-16); Carbon Dioxide 25 mmol/L (22-29); Chloride 96 mmol/L (96-108); Creatinine Clr Calc Pharmacy 68.2; Estimated Glomerular Filt Rate > 60; Glucose Random 150 mg/dL (60-115); Potassium 4.3 mmol/L (3.3-5.1); Sodium 132 mmol/L (135-145)
[2020-12-09] MEDS: Urea 15 GM POWDER PO (09:45)
[2020-12-09] MEDS: vancomycin HCL 500 MG in 0.9 % Sodium Chloride 100 ML 110 MG IV ×2 (09:45→21:03)
[2020-12-09] MEDS: oxyCODONE HCl Immed Release 5 MG TABLET PO ×2 (09:45→23:58)
[2020-12-09] MEDS: Enoxaparin Sodium 40 MG/0.4 ML SYRINGE SUBCUT (09:46)
[2020-12-09 09:53] LABS: Calcium 8.5 mg/dL (8.4-10.2)
--- NOTE | 2020-12-09 10:55 | MHC.CM.PN ---
Per ROUNDS discussion, Patient is not yet medically cleared for dc (IV Vanco). Patient may benefit from PT/OT evals r/t [facility] being the goal for dc (VS STR/SNF referrals made). CM will follow for possible need to adjust the dc plan.
--- NOTE | 2020-12-09 11:17 | P.PNIM_ITS ---
Subjective Subjective Date of Service: 12/09/20 Interval History: patient seen and examined at bedside patient reported breathing improving patient was reporting pain at the sacral side Constitutional Constitutional: Denies weakness Cardiovascular Cardiovascular: Reports dyspnea Respiratory Respiratory: Denies cough and Reports dyspnea Gastrointestinal Gastrointestinal: Denies vomiting Neurologic Neurologic: Denies focal weakness and Denies weakness Physical Exam Vital Signs: Vital Signs: Last Vital Signs Temp 97 F 12/09/20 07:03 Pulse 89 12/09/20 08:25 Resp 20 12/09/20 07:03 BP 124/56 L 12/09/20 07:03 Pulse Ox 99 12/09/20 07:03 Body Mass Index 16.9 Const: General: no acute distress Orientation/consciousness: patient or iented x3 Chest: Chest palpation & inspection: normal inspection of the chest Resp: Auscultation: rhonchi and wheezes Cardio: Jugular venous distension: no JVD Heart sounds: S1 normal heart sound present and S2 normal heart sound present GI: Inspection: Yes normal to inspection Skin: Other: sacral decubitus ulcer status post debridement with dressing in place Neuro: General: patient oriented x3 Objective Data Current Medications Generic Name Dose Route Start Last Admin Trade Name Freq PRN Reason Stop Dose Admin Albuterol/Ipratropium 3 ml 12/07/20 20:00 12/09/20 07:16 Albuterol/Iprat 2.5/0.5mg 3 Ml Ampul.Neb INHALE 3 ml RQ6H WHILE AWAKE HIPOLITO Administration Enoxaparin Sodium 40 mg 12/08/20 09:00 12/09/20 09:46 Enoxaparin Sodium 40 Mg/0.4 Ml Syringe SUBCUT 40 mg DAILY HIPOLITO Administration Gabapentin 300 mg 12/07/20 17:30 Gabapentin 300 Mg Capsule PO DAILY PRN Pain Vancomycin HCl 500 mg/ Sodium 110 mls @ 110 mls/hr 12/09/20 09:00 12/09/20 10:56 Chloride IV Infused Q12H HIPOLITO Infusion Piperacillin Sod/Tazobactam 50 mls @ 100 mls/hr 12/09/20 11:30 Sod 3.375 gm/ Sodium Chloride IV Q6H HIPOLITO Nicotine 14 mg 12/08/20 10:15 12/09/20 07:41 Nicotine 14 Mg Patch.Td24 TRANSDERMA 14 mg DAILY HIPOLITO Administration Oxycodone HCl 5 mg 12/08/20 10:10 12/09/20 09:45 Oxycodone Hcl Immed Release 5 Mg Tablet PO 5 mg BID PRN Administration Pain, Moderate (Pain Scale 4-6 Pharmacy Consult 1 each 12/07/20 09:27 Consult Rx Perform Med Rec MISCELLANE ONCE PRN Consult order Pharmacy Consult 1 each 12/09/20 08:11 Consult Rx Vancomycin Dosing MISCELLANE DAILY PRN Consult order Sodium Chloride 3 ml 12/07/20 16:00 12/09/20 07:43 0.9 % Sodium Chloride Flush 3 Ml Syringe IVFLUSH 3 ml QSHIFT [facility]IPOL[facility]O Administration Urea 15 gm 12/08/20 09:00 12/09/20 09:45 Urea 15 Gm Powder PO 15 gm DAILY HIPOLITO Administration Labs CBC & Chem 7: 12/09/20 08:45 12/09/20 08:45 Microbiology Microbiology Results: Microbiology 12/07/20 09:54 Blood - Venous Blood Culture - Preliminary No growth after 24 hours. 12/07/20 09:54 Blood - Venous Blood Culture - Final Assessment and Plan (1) Atrial fibrillation, new onset: Status: Acute (2) COPD exacerbation: Status: Acute (3) Hyponatremia: Status: Acute (4) Pulmonary nodule: Status: Acute (5) History of left hip hemiarthroplasty: Status: Acute Assessment and Plan: 70-year-old male presented to check her sodium and was also reporting worsening shortness of breath patient was found to be in new onset of AFib with RVR received Cardizem and converted to sinus tach, inpatient admission was requested for COPD exacerbation and New onset of AFib with RVR Infected sacral decubitus ulcer with abscess status post I&D by surgery with fecal smelling pus continue dressing frequent position change surgery following Will start on IV Vanco and Zosyn follow-up cultures id consult to guide antibiotic Question of afib on admission currently in sinus rhythm received IV Cardizem recent echocardiogram shows normal LVF seen by Cardiology reconciled no clear evidence of AFib, recommended event monitor on discharge COPD exacerbation improving continue nebulizer scheduled and as needed oxygen supplementation as needed DVT prophylax Lovenox
[2020-12-09] MEDS: Piperacillin Sodium/Tazobactam 3.375 GM in 0.9 % Sodium Chloride 50 ML IV ×3 (11:46→23:57)
--- NOTE | 2020-12-09 12:48 | PM.PNGS ---
Subjective Subjective Date of Service: 12/09/20 Interval history: Decubitus ulcer on the sacrum debrided yesterday Patient denies new complaints Says he does not want his dressings removed now as this was just changed by the nurse 2 hours ago Physical Exam Vital Signs: Vital Signs: Last Vital Signs Temp 97 F 12/09/20 11:23 Pulse 94 12/09/20 11:23 Resp 18 12/09/20 11:23 BP 142/74 H 12/09/20 11:23 Pulse Ox 99 12/09/20 11:23 Body Mass Index 16.9 Const: Other: Sitting up on chair, appears comfortable Resp: Effort & Inspection: normal respiratory effort GI: Palpation (GI): Soft to palpation Back/Spine/Pelvis: Other: Patient refused examination of the decubitus ulcer Progress Note: A&P Assessment and plan (1) Sacral decubitus ulcer, stage IV: Status: Acute Assessment and Plan: Patient refusing re-examination of the wound As per nurse -ulcer seems to go deep to the bone Continue current wound care IV antibiotics I have instructed the patient to make sure it does not staying in 1 position in bed Seen by ID as well Fall Risk Details Current Medications: Current Medications Generic Name Dose Route Start Last Admin Trade Name Freq PRN Reason Stop Dose Admin Albuterol/Ipratropium 3 ml 12/07/20 20:00 12/09/20 07:16 Albuterol/Iprat 2.5/0.5mg 3 Ml Ampul.Neb INHALE 3 ml RQ6H WHILE AWAKE HIPOLITO Administration Enoxaparin Sodium 40 mg 12/08/20 09:00 12/09/20 09:46 Enoxaparin Sodium 40 Mg/0.4 Ml Syringe SUBCUT 40 mg DAILY HIPOLITO Administration Gabapentin 300 mg 12/07/20 17:30 Gabapentin 300 Mg Capsule PO DAILY PRN Pain Vancomycin HCl 500 mg/ Sodium 110 mls @ 110 mls/hr 12/09/20 09:00 12/09/20 10:56 Chloride IV Infused Q12H HIPOLITO Infusion Piperacillin Sod/Tazobactam 50 mls @ 100 mls/hr 12/09/20 12:00 12/09/20 12:40 Sod 3.375 gm/ Sodium Chloride IV Infused Q6H [facility]IPOLITO Infusion Nicotine 14 mg 12/08/20 10:15 12/09/20 07:41 Nicotine 14 Mg Patch.Td24 TRANSDERMA 14 mg DAILY HIPOLITO Administration Oxycodone HCl 5 mg 12/08/20 10:10 12/09/20 09:45 Oxycodone Hcl Immed Release 5 Mg Tablet PO 5 mg BID PRN Administration Pain, Moderate (Pain Scale 4-6 Pharmacy Consult 1 each 12/07/20 09:27 Consult Rx Perform Med Rec MISCELLANE ONCE PRN Consult order Pharmacy Consult 1 each 12/09/20 08:11 Consult Rx Vancomycin Dosing MISCELLANE DAILY PRN Consult order Sodium Chloride 3 ml 12/07/20 16:00 12/09/20 07:43 0.9 % Sodium Chloride Flush 3 Ml Syringe IVFLUSH 3 ml QSHIFT [facility]IPOL[facility]O Administration Urea 15 gm 12/08/20 09:00 12/09/20 09:45 Urea 15 Gm Powder PO 15 gm DAILY HIPOLITO Administration Time Spent With Patient Time: Total time spent is greater than 50% in coordination of care (as documented) at patient's floor/unit and/or counseling patient: Time with patient: less than 15 minutes
--- NOTE | 2020-12-09 16:41 | PM.EVENT ---
Event Note Date of Service: 12/09/20 Event Note: Says he feels better Looks comfortable, sitting on chair Still very weak on both legs Pain on sacrum better I had re-examined him because of his CAT scan as ordered by the hospitalist He had allowed me to examine his sacrum Deep ulcers seen Note of thick fibrinous debris, some pus freely draining draining Abdomen soft, no guarding, rebound, tenderness, no areas of redness Findings on CT scan consistent with air tracking from the deep ulcer into the subcutaneous tissue Abscess from the ulcer seems to track into the psoas; this however seems to be freely draining Continue wound care with frequent dressing changes on the ulcer May need repeat debridement depending on subsequent exam
--- NOTE | 2020-12-09 16:54 | W.PM.IDCN ---
History of Present Illness Data of Consult Service Date: 12/09/20 Requesting physician: Prabhjot Colon Primary Care Provider: Dio Ibarra MD HPI Reason for consult: sacral decubitus He presents with weakness and low sodium. He was found to have sacral decubitus. He has Penicillin allergy with itchy feet and palms 10 years ago Review of Systems Review of Systems: Yes all other systems are reviewed and are negative PMFSH Past Medical History Medical History Chronic pain syndrome COPD (chronic obstructive pulmonary disease) Disc degeneration, lumbar Hip fracture Hypertension Knee osteoarthritis Pre-op evaluation Pulmonary nodule Spondylosis of lumbosacral region Family History Family History Father Heart failure Mother Colon cancer Maternal Aunt Skin cancer Family history: reviewed and not pertinent Surgical History Surgical History H/O rectal polypectomy Social History Social History Household Members: Spouse Housing: House Alcohol intake: former Smoking Status: Former smoker Tobacco Type: Cigarette Cigarettes Per Day: 10 Years Smoked: 50 Patient Interested in Nicotine Replacement: Yes Second Hand Smoke Exposure: No Use of substances other than those prescribed or required for medical reasons: No Currently Displaying Signs/Symptoms of Drug Intoxication Withdrawal: No Have you been hit, kicked, punched, or otherwise hurt by someone within the past year? If so, by whom?: No Do you feel safe in your current relationship?: Yes Is there a partner from a previous relationship who is making you feel unsafe now?: No Are you made to feel afraid or neglected: No Advance Directives: No Advance Directives Information Provided: No Do you have thoughts of harming others: None Do you have a plan to hurt others: No Plan service: No Current occupational status: retired Meds Allergies Allergy/AdvReac Type Severity Reaction Status Date / Time codeine [CODEINE] Allergy Intermediate GI UPSET Verified 11/09/20 15:50 Penicillins [PENICILLINS] Allergy Intermediate ITCHY Verified 11/09/20 15:50 Active Medications: Current Medications Generic Name Dose Route Start Last Admin Trade Name Freq PRN Reason Stop Dose Admin Albuterol/Ipratropium 3 ml 12/07/20 20:00 12/09/20 13:40 Albuterol/Iprat 2.5/0.5mg 3 Ml Ampul.Neb INHALE 3 ml RQ6H WHILE AWAKE HIPOLITO Administration Enoxaparin Sodium 40 mg 12/08/20 09:00 12/09/20 09:46 Enoxaparin Sodium 40 Mg/0.4 Ml Syringe SUBCUT 40 mg DAILY HIPOLITO Administration Gabapentin 300 mg 12/07/20 17:30 Gabapentin 300 Mg Capsule PO DAILY PRN Pain Vancomycin HCl 500 mg/ Sodium 110 mls @ 110 mls/hr 12/09/20 09:00 12/09/20 10:56 Chloride IV Infused Q12H HIPOLITO Infusion Piperacillin Sod/Tazobactam 50 mls @ 100 mls/hr 12/09/20 12:00 12/09/20 12:40 Sod 3.375 gm/ Sodium Chloride IV Infused Q6H HIPOLITO Infusion Nicotine 14 mg 12/08/20 10:15 12/09/20 07:41 Nicotine 14 Mg Patch.Td24 TRANSDERMA 14 mg DAILY [facility]IPOLITO Administration Oxycodone HCl 5 mg 12/08/20 10:10 12/09/20 09:45 Oxycodone Hcl Immed Release 5 Mg Tablet PO 5 mg BID PRN Administration Pain, Moderate (Pain Scale 4-6 Pharmacy Consult 1 each 12/07/20 09:27 Consult Rx Perform Med Rec MISCELLANE ONCE PRN Consult order Pharmacy Consult 1 each 12/09/20 08:11 Consult Rx Vancomycin Dosing MISCELLANE DAILY PRN Consult order Sodium Chloride 3 ml 12/07/20 16:00 12/09/20 16:19 0.9 % Sodium Chloride Flush 3 Ml Syringe IVFLUSH 3 ml QSHIFT [facility]IPOL[facility]O Administration Urea 15 gm 12/08/20 09:00 12/09/20 09:45 Urea 15 Gm Powder PO 15 gm DAILY HIPOLITO Administration Home Medications Medication Instructions Recorded Confirmed Last Taken Type gabapentin 300 mg capsule 300 mg PO DAILY PRN 08/12/20 12/07/20 Unknown History doxycycline hyclate 1 cap PO BID 12/07/20 12/07/20 12/07/20 History ibuprofen 1 tab PO TID PRN 12/07/20 12/07/20 Unknown History urea [Ure-Na] 1 packet PO DAILY 12/07/20 12/07/20 12/06/20 History Physical Exam Vital Signs: Vital Signs: Last Vital Signs Temp 97.4 F 12/09/20 15:12 Pulse 93 12/09/20 15:12 Resp 20 12/09/20 15:12 BP 166/81 H 12/09/20 15:12 Pulse Ox 99 12/09/20 15:12 Body Mass Index 16.9 Const: General: cooperative HENMT: Head: Yes normal to inspection Mouth: Normal oral and palatal mucosa present Eyes: General: appearance normal, both eyes and all related structures Resp: Effort & Inspection: normal respiratory effort Cardio: Rate: regular rate Rhythm: regular rhythm GI: Auscultation: normal bowel sounds : General: Yes no CVA tenderness Back/Spine/Pelvis: Back: no CVA tenderness Skin: General skin exam: no rashes or lesions noted Extrem: Other: open sacral wound to bone Results Labs CBC & Chem 7: 12/09/20 08:45 12/09/20 08:45 Labs: Short CBC 12/09/20 Range/Units 08:45 WBC 21.8 H (4.8-10.8) X10*3/uL Hgb 9.0 L (14.0-18.0) g/dl Hct 26.3 L (42-52) % Plt Count 288 (160-400) X10*3/uL BMP 12/09/20 08:45 Sodium 132 L Potassium 4.3 Chloride 96 Carbon Dioxide 25 BUN 35 H Creatinine 0.75 Calcium 8.5 D Microbiology Microbiology Results: Microbiology 12/07/20 09:54 Blood - Venous Blood Culture - Preliminary No growth after 48 hours. 12/07/20 09:54 Blood - Venous Blood Culture - Final Assessment and Plan (1) Sacral decubitus ulcer, stage IV: Problem details: Osteomyelitis by definition probes to bone Old penicillin allergy Status: Acute 6 weeks IV antibiotics ,possibly Vancomycin or Ertapenem Wound Clinic help healing
[2020-12-09] MEDS: Gabapentin 300 MG CAPSULE PO (17:01)
[2020-12-10] VITALS (10 sets, daily range): BP systolic 106–138; BP diastolic 51–65; PULSE 70–113; RESP 18–20; TEMP 36.3–37.8; O2SAT 96–100
[2020-12-10] MEDS: Piperacillin Sodium/Tazobactam 3.375 GM in 0.9 % Sodium Chloride 50 ML IV ×4 (06:18→23:22)
[2020-12-10] MEDS: Albuterol/Iprat 2.5/0.5MG 3 ML AMPUL.NEB INHALE ×3 (08:26→21:24)
[2020-12-10] MEDS: 0.9 % Sodium Chloride Flush 3 ML SYRINGE IVFLUSH ×3 (09:07→23:23)
[2020-12-10] MEDS: Enoxaparin Sodium 40 MG/0.4 ML SYRINGE SUBCUT (09:08)
[2020-12-10] MEDS: Nicotine 14 MG PATCH.TD24 TRANSDERMA (09:08)
[2020-12-10] MEDS: vancomycin HCL 500 MG in 0.9 % Sodium Chloride 100 ML 100 MG IV (09:11)
[2020-12-10] MEDS: Urea 15 GM POWDER PO (09:11)
--- NOTE | 2020-12-10 12:43 | PC.NURSE ---
15f indwelling catheter inserted at 1115. Patient tolerated well. clear yellow urine noted in catheter tubing.
[2020-12-10 14:11] LABS: Glucose Urine UA NEG (NEG); Leukocyte Esterase Urine NEG (NEG); Nitrite Urine NEG (NEG); PH 5.5 (5.0-8.0); Specific Gravity - Urine <= 1.005 (1.005-1.025); Urine Blood TRACE (NEG); Urine Ketones NEG (NEG); Urine Protein NEG (NEG-TRACE)
[2020-12-10 14:34] LABS: Appearance Urine CLEAR; Color Urine YELLOW
[2020-12-10 14:54] LABS: WBC Urine 0 /HPF (0-4)
--- NOTE | 2020-12-10 15:12 | P.PNIM_ITS ---
Subjective Subjective Date of Service: 12/11/20 Interval History: Patient resting in bed awake and alert complaining of pain right hip, offers no other complaints of headache, no dizziness, no shortness of breath, RN informed that patient has no urinary output and complained of dysuria. 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, no dizziness CVS no chest pain, no palpitation GI no abdominal pain, no nausea, no vomiting Physical Exam Vital Signs: Vital Signs: Last Vital Signs Temp 100.1 F 12/10/20 10:47 Pulse 109 H 12/10/20 08:27 Resp 18 12/10/20 07:55 BP 131/60 12/10/20 07:55 Pulse Ox 100 12/10/20 07:55 Body Mass Index 16.9 General, awake alert no acute distress Neck is supple, no JVD Lungs clear to auscultation, no wheeze, no rhonchi Cardiovascular regular rate rhythm Abdomen soft, nontender, bowel sounds audible Right hip examination, no sutures noted no tenderness no hyperemia Left hip well-healed scar from hip surgery Lower back dressing intact no drainage noted Objective Data Current Medications Generic Name Dose Route Start Last Admin Trade Name Freq PRN Reason Stop Dose Admin Albuterol/Ipratropium 3 ml 12/07/20 20:00 12/10/20 08:26 Albuterol/Iprat 2.5/0.5mg 3 Ml Ampul.Neb INHALE 3 ml RQ6H WHILE AWAKE HIPOLITO Administration Enoxaparin Sodium 40 mg 12/08/20 09:00 12/10/20 09:08 Enoxaparin Sodium 40 Mg/0.4 Ml Syringe SUBCUT 40 mg DAILY HIPOLITO Administration Gabapentin 300 mg 12/07/20 17:30 12/09/20 17:01 Gabapentin 300 Mg Capsule PO 300 mg DAILY PRN Administration Pain Vancomycin HCl 500 mg/ Sodium 110 mls @ 110 mls/hr 12/09/20 09:00 12/10/20 10:44 Chloride IV Infused Q12H HIPOLITO Infusion Piperacillin Sod/Tazobactam 50 mls @ 100 mls/hr 12/09/20 12:00 12/10/20 13:32 Sod 3.375 gm/ Sodium Chloride IV 100 mls/hr Q6H [facility]IPOL[facility]O Administration Nicotine 14 mg 12/08/20 10:15 12/10/20 09:08 Nicotine 14 Mg Patch.Td24 TRANSDERMA 14 mg DAILY [facility]IPOLITO Administration Oxycodone HCl 5 mg 12/08/20 10:10 12/09/20 23:58 Oxycodone Hcl Immed Release 5 Mg Tablet PO 5 mg BID PRN Administration Pain, Moderate (Pain Scale 4-6 Pharmacy Consult 1 each 12/07/20 09:27 Consult Rx Perform Med Rec MISCELLANE ONCE PRN Consult order Pharmacy Consult 1 each 12/09/20 08:11 Consult Rx Vancomycin Dosing MISCELLANE DAILY PRN Consult order Sodium Chloride 3 ml 12/07/20 16:00 12/10/20 09:07 0.9 % Sodium Chloride Flush 3 Ml Syringe IVFLUSH 3 ml QSHIFT [facility]OL[facility]O Administration Urea 15 gm 12/08/20 09:00 12/10/20 09:11 Urea 15 Gm Powder PO 15 gm DAILY HIPOLITO Administration Labs CBC & Chem 7: 12/11/20 05:36 12/11/20 05:36 Microbiology Microbiology Results: Microbiology 12/07/20 09:54 Blood - Venous Blood Culture - Preliminary 12/07/20 09:54 Blood - Venous Blood Culture - Final Assessment and Plan (1) Leukocytosis: Status: Acute (2) Sacral decubitus ulcer, stage IV: Problem details: He has strep viridans in blood This may be real He has osteomyelitis sacrum and no MRSA seen Status: Acute (3) History of left hip hemiarthroplasty: Status: Acute (4) Atrial fibrillation, new onset: Status: Acute (5) Tachycardia: Status: Acute (6) COPD exacerbation: Status: Acute (7) Dysuria: Status: Acute Assessment and Plan: 70-year-old male presented to check her sodium and was also reporting worsening shortness of breath patient was found to be in new onset of AFib with RVR received Cardizem and converted to sinus tach, inpatient admission was requested for COPD exacerbation and New onset of AFib with RVR Infected sacral decubitus ulcer with abscess status post I&D by surgery with fecal smelling drainage, patient seen by ID she recommend 6 weeks of IV antibiotic possibly vancomycin or ertapenem Being followed by Dr. Case with dressing change will likely need irrigation , recommend frequent position change Blood culture positive for gram-positive cocci in chains, await final culture report currently on IV Vanco and Zosyn, with persistent leukocytosis, rectal temp 100.1, follow Vanco trough. Question of afib on admission, no rhythm strip noted to have atrial fibrillation patient evaluated by studio grip Dr. Leos he recommend outpatient event recorder but at present patient has no evidence of atrial fibrillation, currently in sinus rhythm, recent echocardiogram shows normal LVF COPD exacerbation improving continue nebulizer scheduled and as needed, finger oximetry 100% on room air oxygen supplementation as needed Dysuria poor urinary output will order [place] catheter for managing Is&Os and check urine analysis and culture sensitivity, that will also help in healing of decubitus ulcers. Tobacco use disorder continue nicotine patch DVT prophylax Lovenox
[2020-12-10 20:43] LABS: Vancomycin Trough 7.4 mcg/mL (10.0-20.0)
--- NOTE | 2020-12-10 21:21 | MHC.PIE ---
P: SEVERE DYSURIA, FREQUENCY, URGENCY; UNSTABLE WITH URINAL AND UNABLE TO VOID I: BLADDER SCANNED FOR [address] NORTON, PLACED SEN PER DR. NORTON e: PATIENT REPORTS FEELING BETTER, 1.2 LITERS CLEAR YELLOW URINE OUT IMMEDIATELY. P2: PATIENT WITH ANAL AREA BEEFY RED; DENIES DISCOMFORT. I:2: PHOTOGRAPHED, DR. NORTON NOTIFIED AND REVIEWED, WOUND CONSULT, SURGICAL CONSULT E: PENDING SURIGAL CONSULT.
[2020-12-10] MEDS: vancomycin HCL 750 MG in 0.9 % Sodium Chloride 250 ML 265 MG IV (21:38)
[2020-12-10] MEDS: oxyCODONE HCl Immed Release 5 MG TABLET PO (22:53)
[2020-12-11] VITALS (15 sets, daily range): BP systolic 103–146; BP diastolic 46–67; PULSE 70–106; RESP 18–24; TEMP 36.7–38.2; O2SAT 95–99
[2020-12-11] MEDS: Piperacillin Sodium/Tazobactam 3.375 GM in 0.9 % Sodium Chloride 50 ML IV ×3 (05:14→17:49)
[2020-12-11 06:34] LABS: MANUAL DIFF FLAG NO
[2020-12-11 06:46] LABS: Basophils Percent Auto 0.1 % (0-2); Eosinophils Absolute Auto 0.3 X10*3/uL (0.0-0.4); Eosinophils Percent Auto 1.6 % (0-4); Imm Gran Pct Auto 0.6 % (0.0-0.4); Lymphocytes Absolute Auto 1.9 X10*3/uL (1.2-4.9); Lymphocytes Percent Auto 11.8 % (20-40); Mean Corpuscular HGB Conc 34.4 g/dl (31.0-36.0); Mean Corpuscular Hemoglobin 31.9 pg (27.0-33.0); Mean Corpuscular Volume 92.9 fL (80-98); Mean Platelet Volume 9.6 fL (9.4-12.4); Neutrophils Absolute Auto 13.1 X10*3/uL (2.0-8.3); Neutrophils Percent Auto 79.9 % (45-73); Platelet Count 214 X10*3/uL (160-400); Red Cell Distribution Width 14.3 % (11.0-16.0); White Blood Count 16.4 X10*3/uL (4.8-10.8)
[2020-12-11 07:43] LABS: Hematocrit 19.5 % (42-52); Hemoglobin 6.7 g/dl (14.0-18.0)
[2020-12-11] MEDS: Albuterol/Iprat 2.5/0.5MG 3 ML AMPUL.NEB INHALE ×2 (07:57→14:50)
[2020-12-11 08:06] LABS: Anion Gap 12 (12-20); Blood Urea Nitrogen 40 mg/dL (9-16); Calcium 7.5 mg/dL (8.4-10.2); Carbon Dioxide 25 mmol/L (22-29); Chloride 96 mmol/L (96-108); Creatinine Clr Calc Pharmacy 66.4; Estimated Glomerular Filt Rate > 60; Glucose Random 100 mg/dL (60-115); Potassium 4.5 mmol/L (3.3-5.1); Sodium 128 mmol/L (135-145)
--- NOTE | 2020-12-11 08:12 | PM.PNGS ---
Subjective Subjective Date of Service: 12/11/20 Interval history: Patient reports some pain in the coccyx area but overall feels improved. He reports that the dressings were changed last night, and fell he was making improvement. Physical Exam Vital Signs: Vital Signs: Last Vital Signs Temp 98.1 F 12/11/20 07:41 Pulse 86 12/11/20 07:58 Resp 18 12/11/20 07:41 BP 117/58 L 12/11/20 07:41 Pulse Ox 99 12/11/20 07:41 Body Mass Index 16.9 Const: General: cooperative, healthy appearing, comfortable and no acute distress Resp: Other: Breathing comfortably, no respiratory distress GI: Other: Soft and nondistended, normal inspection. Back/Spine/Pelvis: Other: Examination deferred per patient request Skin: Other: Warm, dry, no rash Progress Note: A&P Assessment and plan (1) Sacral decubitus ulcer, stage IV: Status: Acute Assessment and Plan: Patient should avoid all pressure on his coccyx; he was encouraged to lyse side to side and avoid midline pressure. He was also encouraged to increase his p.o. intake. Dietary supplements for encouraged as well. Agree with treatment for osteo. Fall Risk Details Current Medications: Current Medications Generic Name Dose Route Start Last Admin Trade Name Freq PRN Reason Stop Dose Admin Albuterol/Ipratropium 3 ml 12/07/20 20:00 12/11/20 07:57 Albuterol/Iprat 2.5/0.5mg 3 Ml Ampul.Neb INHALE 3 ml RQ6H WHILE AWAKE HIPOLITO Administration Enoxaparin Sodium 40 mg 12/08/20 09:00 12/10/20 09:08 Enoxaparin Sodium 40 Mg/0.4 Ml Syringe SUBCUT 40 mg DAILY [facility]IPOLITO Administration Gabapentin 300 mg 12/07/20 17:30 12/09/20 17:01 Gabapentin 300 Mg Capsule PO 300 mg DAILY PRN Administration Pain Piperacillin Sod/Tazobactam 50 mls @ 100 mls/hr 12/09/20 12:00 12/11/20 05:49 Sod 3.375 gm/ Sodium Chloride IV Infused Q6H HIPOLITO Infusion Vancomycin HCl 750 mg/ Sodium 265 mls @ 265 mls/hr 12/10/20 21:00 12/10/20 23:06 Chloride IV Infused Q12H [facility]IPOL[facility]O Infusion Nicotine 14 mg 12/08/20 10:15 12/10/20 09:08 Nicotine 14 Mg Patch.Td24 TRANSDERMA 14 mg DAILY [facility]IPOLITO Administration Oxycodone HCl 5 mg 12/08/20 10:10 12/10/20 22:53 Oxycodone Hcl Immed Release 5 Mg Tablet PO 5 mg BID PRN Administration Pain, Moderate (Pain Scale 4-6 Pharmacy Consult 1 each 12/07/20 09:27 Consult Rx Perform Med Rec MISCELLANE ONCE PRN Consult order Pharmacy Consult 1 each 12/09/20 08:11 Consult Rx Vancomycin Dosing MISCELLANE DAILY PRN Consult order Sodium Chloride 3 ml 12/07/20 16:00 12/10/20 23:23 0.9 % Sodium Chloride Flush 3 Ml Syringe IVFLUSH 3 ml QSHIFT [facility]O Administration Urea 15 gm 12/08/20 09:00 12/10/20 09:11 Urea 15 Gm Powder PO 15 gm DAILY HIPOLITO Administration Time Spent With Patient Time: Total time spent is greater than 50% in coordination of care (as documented) at patient's floor/unit and/or counseling patient: Time with patient: 15 - 24 minutes
[2020-12-11] MEDS: oxyCODONE HCl Immed Release 5 MG TABLET PO ×2 (09:07→19:31)
[2020-12-11] MEDS: vancomycin HCL 750 MG in 0.9 % Sodium Chloride 250 ML 265 MG IV (09:07)
[2020-12-11] MEDS: 0.9 % Sodium Chloride Flush 3 ML SYRINGE IVFLUSH ×2 (09:11→16:40)
[2020-12-11] MEDS: Urea 15 GM POWDER PO (09:11)
[2020-12-11] MEDS: Nicotine 14 MG PATCH.TD24 TRANSDERMA (09:11)
[2020-12-11] MEDS: Enoxaparin Sodium 40 MG/0.4 ML SYRINGE SUBCUT (09:13)
[2020-12-11 10:12] LABS: Iron 30 mcg/dL (45-160); Lactate Dehydrogenase 168 U/L (118-273); Percent Iron Saturation 17 % (15-50); Total Iron Binding Capacity 173 mcg/dL (228-428); Unsaturated Iron Binding 143 ug/dL
--- NOTE | 2020-12-11 10:55 | MHC.CM.PN ---
Per ROUNDS discussion, Patient is not yet medically cleared for dc (IV Vanco & IV Zosyn, significantly Anemic, Sacral Decubitus). STR is the goal for dc and CM will continue to follow for dc planning.
--- NOTE | 2020-12-11 11:45 | MHC.CLN ---
F/U PO INTAKE VARIABLE DIET RX: REGULAR-APPROPRIATE PT RECEIVING ENSURE TID, PROSOURCE BID AND ARNOLD BID TO INCREASE KCALS AND PROMOTE WOUND HEALING SUPPLEMENTS PROVIDE 1330KCALS (83% EST KCALS NEEDS),95G PROTEIN (1.8G/KG) FOLLOWING
--- NOTE | 2020-12-11 15:16 | PM.IDPN ---
Subjective Subjective Date of Service: 12/17/20 Interval History: he has open sacral area Objective Data Labs CBC & Chem 7: 12/14/20 08:42 12/14/20 08:42 Labs: Laboratory Results - last 24 hr 12/10/20 12/11/20 12/11/20 20:00 05:36 05:36 WBC 16.4 H RBC 2.10 L D Hgb 6.7 L* D Hct 19.5 L* D MCV 92.9 MCH 31.9 MCHC 34.4 RDW 14.3 Plt Count 214 D MPV 9.6 Immature Gran % (Auto) 0.6 H Neut % (Auto) 79.9 H Lymph % (Auto) 11.8 L [place] % (Auto) 6.0 Eos % (Auto) 1.6 Baso % (Auto) 0.1 Lymph # (Auto) 1.9 [place] # (Auto) 1.0 Eos # (Auto) 0.3 Baso # (Auto) 0.0 Abs Immat Gran (auto) 0.10 H Absolute Neuts (auto) 13.1 H Absolute Nucleated RBC 0.000 Nucleated RBC % (auto) 0.0 Sodium 128 L Potassium 4.5 Chloride 96 Carbon Dioxide 25 Anion Gap 12 BUN 40 H Creatinine 0.77 Estim Creat Clear Calc 66.4 Estimated GFR > 60 Random Glucose 100 Calcium 7.5 L D Iron 30 L TIBC 173 L % Saturation 17 Unsat Iron Binding 143 Lactate Dehydrogenase 168 Vancomycin Trough 7.4 L Blood Type Antibody Screen Crossmatch 12/11/20 09:38 WBC RBC Hgb Hct MCV MCH MCHC RDW Plt Count MPV Immature Gran % (Auto) Neut % (Auto) Lymph % (Auto) [place] % (Auto) Eos % (Auto) Baso % (Auto) Lymph # (Auto) [place] # (Auto) Eos # (Auto) Baso # (Auto) Abs Immat Gran (auto) Absolute Neuts (auto) Absolute Nucleated RBC Nucleated RBC % (auto) Sodium Potassium Chloride Carbon Dioxide Anion Gap BUN Creatinine Estim Creat Clear Calc Estimated GFR Random Glucose Calcium Iron TIBC % Saturation Unsat Iron Binding Lactate Dehydrogenase Vancomycin Trough Blood Type O Positive Antibody Screen NEGATIVE Crossmatch See Detail Microbiology Microbiology Results: Microbiology 12/07/20 09:54 Blood - Venous Blood Culture - Final Viridans streptococcus group 12/10/20 13:18 Urine [place] Urine Culture - Final No growth. 12/07/20 09:54 Blood - Venous Blood Culture - Final Physical Exam Vital Signs: Vital Signs: Last Vital Signs Temp 99.0 F 12/11/20 12:58 Pulse 70 12/11/20 14:54 Resp 20 12/11/20 12:58 BP 116/67 12/11/20 12:58 Pulse Ox 99 12/11/20 12:00 Body Mass Index 16.9 Const: General: cooperative HENMT: Head: Yes normal to inspection Mouth: Normal oral and palatal mucosa present Resp: Effort & Inspection: normal respiratory effort Cardio: Rate: regular rate Rhythm: regular rhythm GI: Palpation (GI): Soft to palpation and nontender Skin: General skin exam: no rashes or lesions noted Assessment and Plan Assessment and plan (1) Sacral decubitus ulcer, stage IV: Problem details: He has strep viridans in blood This may be real He has osteomyelitis sacrum and no MRSA seen Status: Acute Assessment and Plan: PICC 6 weeks Ertapenem, with weekly CBC and creatinine and SGOT and followup appt with me Time Spent With Patient Time: Total time spent is greater than 50% in coordination of care (as documented) at patient's floor/unit and/or counseling patient: Time with patient: 15 - 24 minutes
--- NOTE | 2020-12-11 16:12 | P.PNIM_ITS ---
Subjective Subjective Date of Service: 12/12/20 Interval History: Impression to more awake alert this morning offers no acute complaints of lightheadedness dizziness no nausea, vomiting, no chest pain or palpitation just feels tired ROS [employer] SERVICES [employer] no headache, no dizziness CVS no chest pain, no palpitation Respiratory no shortness of breath, no cough offers no urinary symptoms Almonte catheter in place Physical Exam Vital Signs: Vital Signs: Last Vital Signs Temp 100.8 F H 12/11/20 15:54 Pulse 102 H 12/11/20 15:54 Resp 24 H 12/11/20 15:54 BP 103/50 L 12/11/20 15:54 Pulse Ox 96 12/11/20 15:33 Body Mass Index 16.9 General, awake, alert, no acute distress Neck is supple, no JVD Lungs clear to auscultation, no wheeze, no rhonchi Cardiovascular regular rate rhythm Abdomen soft, nontender, bowel sounds audible Left hip well-healed scar from hip surgery Lower back dressing intact no drainage noted Extremities no edema [place] clear urine Objective Data Current Medications Generic Name Dose Route Start Last Admin Trade Name Freq PRN Reason Stop Dose Admin Albuterol/Ipratropium 3 ml 12/07/20 20:00 12/11/20 14:50 Albuterol/Iprat 2.5/0.5mg 3 Ml Ampul.Neb INHALE 3 ml RQ6H WHILE AWAKE [facility]OLITO Administration Gabapentin 300 mg 12/07/20 17:30 12/09/20 17:01 Gabapentin 300 Mg Capsule PO 300 mg DAILY PRN Administration Pain Piperacillin Sod/Tazobactam 50 mls @ 100 mls/hr 12/09/20 12:00 12/11/20 11:29 Sod 3.375 gm/ Sodium Chloride IV Infused Q6H [facility] Infusion Nicotine 14 mg 12/08/20 10:15 12/11/20 09:11 Nicotine 14 Mg Patch.Td24 TRANSDERMA 14 mg DAILY [facility]O Administration Oxycodone HCl 5 mg 12/08/20 10:10 12/11/20 09:07 Oxycodone Hcl Immed Release 5 Mg Tablet PO 5 mg BID PRN Administration Pain, Moderate (Pain Scale 4-6 Pharmacy Consult 1 each 12/07/20 09:27 Consult Rx Perform Med Rec MISCELLANE ONCE PRN Consult order Pharmacy Consult 1 each 12/09/20 08:11 Consult Rx Vancomycin Dosing MISCELLANE DAILY PRN Consult order Sodium Chloride 3 ml 12/07/20 16:00 12/11/20 09:11 0.9 % Sodium Chloride Flush 3 Ml Syringe IVFLUSH 3 ml QSHIFT [facility] Administration Urea 15 gm 12/08/20 09:00 12/11/20 09:11 Urea 15 Gm Powder PO 15 gm DAILY [facility]O Administration Labs CBC & Chem 7: 12/12/20 06:27 12/12/20 06:27 Microbiology Microbiology Results: Microbiology 12/07/20 09:54 Blood - Venous Blood Culture - Final Viridans streptococcus group 12/10/20 13:18 Urine [place] Urine Culture - Final No growth. 12/07/20 09:54 Blood - Venous Blood Culture - Final Assessment and Plan (1) Sacral decubitus ulcer, stage IV: Problem details: He has strep viridans in blood This may be real He has osteomyelitis sacrum and no MRSA seen Status: Acute (2) Leukocytosis: Status: Acute (3) Tachycardia: Status: Acute (4) COPD exacerbation: Status: Acute (5) History of left hip hemiarthroplasty: Status: Acute (6) Tobacco use disorder: Status: Acute Assessment and Plan: 70-year-old male presented to check her sodium and was also reporting worsening shortness of breath patient was found to be in new onset of AFib with RVR received Cardizem and converted to sinus tach, inpatient admission was requested for COPD exacerbation and New onset of AFib with RVR Infected sacral decubitus ulcer/osteomyelitis status post I&D by surgery with fecal smelling drainage, patient seen by ID she recommend 6 weeks of IV ertapenem Being followed by Dr. Case with dressing change will likely need irrigation , recommend frequent position change Blood culture positive for Streptococcus viridans currently on IV Vanco and Zosyn, WBC trending down, rectal temp 100.1, follow Vanco trough. Will discuss with ID whether to start ertapenem upon discharge, will place a PICC line on Monday Acute on chronic anemia question etiology no GI bleed noted, likely due to acute infection, will check iron studies, B12 folate, stool guaiac, patient is asym ptomatic with no chest pain, no shortness of breath, will transfuse 2 units of packed RBC. Question of afib on admission, no rhythm strip noted to have atrial fibrillation patient evaluated by hydropulper operator Dr. Leos he recommend outpatient event recorder but at present patient has no evidence of atrial fibrillation, currently in sinus rhythm, recent echocardiogram shows normal LVEF COPD exacerbation improved continue nebulizer, scheduled and as needed, finger oximetry 100% on room air oxygen supplementation as needed Dysuria patient denies urinary symptoms, likely had urinary retention put out 1 L of urine with placement of Al[place] catheter , UA and culture sensitivity showed no growth, continue Al[place] catheter for managing Is&Os and also to help in healing of decubitus ulcers. Tobacco use disorder continue nicotine patch DVT prophylax Lovenox
--- NOTE | 2020-12-11 16:22 | PC.NURSE ---
dr snell contacted notified 1. 1st unit of rbcs transfused 2. pt febrile temp 100.8 3. vitals examined b/p 103/50 p 102 rr 24 sao2 97% plan 1. administer tylenol wait 30 minutes reevaluate with md.
[2020-12-11] MEDS: Acetaminophen 325 MG TABLET 650 MG PO (16:29)
--- NOTE | 2020-12-11 17:34 | PC.NURSE ---
evaluated by dr snell- transfusion reaction protocol implemented. post tylenol 30 min vitals discussed with dr snell. will hold off on second transfusion until lab completes blood work and urine test for suspected transfusion reaction.
[2020-12-11 17:51] LABS: Urine Hemoglobin NEG
[2020-12-11 20:35] LABS: Vancomycin Random 11.2 mcg/mL (15-20)
[2020-12-12] VITALS (9 sets, daily range): BP systolic 100–148; BP diastolic 53–63; PULSE 80–97; RESP 16–20; TEMP 36.6–37.5; O2SAT 95–99
[2020-12-12] MEDS: Piperacillin Sodium/Tazobactam 3.375 GM in 0.9 % Sodium Chloride 50 ML IV ×2 (01:29→06:13)
[2020-12-12] MEDS: 0.9 % Sodium Chloride Flush 3 ML SYRINGE IVFLUSH ×3 (01:30→15:22)
[2020-12-12 06:58] LABS: MANUAL DIFF FLAG NO
[2020-12-12 07:06] LABS: Basophils Percent Auto 0.1 % (0-2); Eosinophils Absolute Auto 0.4 X10*3/uL (0.0-0.4); Eosinophils Percent Auto 2.6 % (0-4); Hematocrit 24.9 % (42-52); Hemoglobin 8.4 g/dl (14.0-18.0); Imm Gran Abs Auto 0.11 X10*3/uL (0.00-0.03); Imm Gran Pct Auto 0.7 % (0.0-0.4); Lymphocytes Absolute Auto 1.9 X10*3/uL (1.2-4.9); Lymphocytes Percent Auto 11.4 % (20-40); Mean Corpuscular HGB Conc 33.7 g/dl (31.0-36.0); Mean Corpuscular Hemoglobin 31.1 pg (27.0-33.0); Mean Corpuscular Volume 92.2 fL (80-98); Mean Platelet Volume 9.2 fL (9.4-12.4); Monocytes Absolute Auto 1.2 X10*3/uL (0.1-1.2); Monocytes Percent Auto 6.8 % (2-11); Neutrophils Absolute Auto 13.2 X10*3/uL (2.0-8.3); Neutrophils Percent Auto 78.4 % (45-73); Platelet Count 235 X10*3/uL (160-400); Red Cell Distribution Width 13.9 % (11.0-16.0); White Blood Count 16.9 X10*3/uL (4.8-10.8)
[2020-12-12 07:34] LABS: Anion Gap 12 (12-20); Blood Urea Nitrogen 40 mg/dL (9-16); Calcium 7.5 mg/dL (8.4-10.2); Carbon Dioxide 25 mmol/L (22-29); Chloride 98 mmol/L (96-108); Creatinine Clr Calc Pharmacy 67.3; Estimated Glomerular Filt Rate > 60; Glucose Random 91 mg/dL (60-115); Potassium 4.6 mmol/L (3.3-5.1); Sodium 130 mmol/L (135-145)
[2020-12-12] MEDS: Albuterol/Iprat 2.5/0.5MG 3 ML AMPUL.NEB INHALE ×3 (08:34→19:45)
[2020-12-12] MEDS: Nicotine 14 MG PATCH.TD24 TRANSDERMA (09:06)
[2020-12-12] MEDS: Urea 15 GM POWDER PO (09:07)
[2020-12-12] MEDS: oxyCODONE HCl Immed Release 5 MG TABLET PO ×2 (09:25→21:39)
--- NOTE | 2020-12-12 10:07 | P.PNGS_ITS ---
Subjective Subjective Date of Service: 12/12/20 Interval history: describes some pain on sacral area no other events reported says he still feels weak on lower extremities Physical Exam Vital Signs: Vital Signs: Last Vital Signs Temp 98.7 F 12/12/20 07:24 Pulse 80 12/12/20 08:35 Resp 17 12/12/20 07:24 BP 126/60 12/12/20 07:24 Pulse Ox 99 12/12/20 07:24 Body Mass Index 16.9 Laboratory Results - last 24 hr 12/11/20 12/11/20 12/11/20 05:36 09:38 17:05 WBC RBC Hgb Hct MCV MCH MCHC RDW Plt Count MPV Immature Gran % (A uto) Neut % (Auto) Lymph % (Auto) [place] % (Auto) Eos % (Auto) Baso % (Auto) Lymph # (Auto) [place] # (Auto) Eos # (Auto) Baso # (Auto) Abs Immat Gran (au to) Absolute Neuts (au to) Absolute Nucleated RBC Nucleated RBC % (a uto) Sodium Potassium Chloride Carbon Dioxide Anion Gap BUN Creatinine Estim Creat Clear Calc Estimated GFR Random Glucose Calcium Iron 30 L TIBC 173 L % Saturation 17 Unsat Iron Binding 143 Lactate Dehydrogen ase 168 Urine Hemoglobin Random Vancomycin Blood Type O Positive Antibody Screen NEGATIVE Crossmatch See Detail Clerical Work Chec k No Error Found Hemolysis Bld Bag Check None in Pre and P ost Icterus Blood Bag Check None in Pre and P ost Post-Trans Blood T ype O Positive Post-Trans QUINTIN IgG TNP Post-Trans QUINTIN Dustin y NEGATIVE 12/11/20 12/11/20 12/12/20 17:20 19:49 06:27 WBC 16.9 H RBC 2.70 L D Hgb 8.4 L D Hct 24.9 L D MCV 92.2 MCH 31.1 MCHC 33.7 RDW 13.9 Plt Count 235 MPV 9.2 L Immature Gran % (A uto) 0.7 H Neut % (Auto) 78.4 H Lymph % (Auto) 11.4 L [place] % (Auto) 6.8 Eos % (Auto) 2.6 Baso % (Auto) 0.1 Lymph # (Auto) 1.9 [place] # (Auto) 1.2 Eos # (Auto) 0.4 Baso # (Auto) 0.0 Abs Immat Gran (au to) 0.11 H Absolute Neuts (au to) 13.2 H Absolute Nucleated RBC 0.000 Nucleated RBC % (a uto) 0.0 Sodium Potassium Chloride Carbon Dioxide Anion Gap BUN Creatinine Estim Creat Clear Calc Estimated GFR Random Glucose Calcium Iron TIBC % Saturation Unsat Iron Binding Lactate Dehydrogen ase Urine Hemoglobin NEG Random Vancomycin 11.2 L Blood Type Antibody Screen Crossmatch Clerical Work [facility] [place] k Hemolysis Bld Bag Check Icterus Blood Bag Check Post-Trans Blood T ype Post-Trans QUINTIN IgG Post-Trans QUINTIN Dustin y 12/12/20 06:27 WBC RBC Hgb Hct MCV MCH MCHC RDW Plt Count MPV Immature Gran % (A uto) Neut % (Auto) Lymph % (Auto) [place] % (Auto) Eos % (Auto) Baso % (Auto) Lymph # (Auto) [place] # (Auto) Eos # (Auto) Baso # (Auto) Abs Immat Gran (au to) Absolute Neuts (au to) Absolute Nucleated RBC Nucleated RBC % (a uto) Sodium 130 L Potassium 4.6 Chloride 98 Carbon Dioxide 25 Anion Gap 12 BUN 40 H Creatinine 0.76 Estim Creat Clear Calc 67.3 Estimated GFR > 60 Random Glucose 91 Calcium 7.5 L Iron TIBC % Saturation Unsat Iron Binding Lactate Dehydrogen ase Urine Hemoglobin Random Vancomycin Blood Type Antibody Screen Crossmatch Clerical Work [facility] [place] k Hemolysis Bld Bag Check Icterus Blood Bag Check Post-Trans Blood T ype Post-Trans QUINTIN IgG Post-Trans QUINTIN Dustin y Const: General: no acute distress Resp: Effort & Inspection: normal respiratory effort GI: Palpation (GI): Soft to palpation and nontender Back/Spine/Pelvis: Other: deep sacral decub ulcer, stage 4, pus freely palomo jennigns, otherwise ulcer base seems much improved Progress Note: A&P Assessment and plan (1) Sacral decubitus ulcer, stage IV: Problem details: He has strep viridans in blood This may be real He has osteomyelitis sacrum and no MRSA seen Status: Acute Assessment and Plan: dressings changed - dry gauze into ulcer, foam dressings has osteomyelitis of sacrum IV abx WBC much improved instructed pt to turn side to side will reexamine wound radha Fall Risk Details Current Medications: Current Medications Generic Name Dose Route Start Last Admin Trade Name Freq PRN Reason Stop Dose Admin Acetaminophen 650 mg 12/11/20 16:21 12/11/20 16:29 Acetaminophen 325 Mg Tablet PO 650 mg Q6H PRN Administration Fever Albuterol/Ipratropium 3 ml 12/07/20 20:00 12/12/20 08:34 Albuterol/Iprat 2.5/0.5mg 3 Ml Ampul.Neb INHALE 3 ml RQ6H WHILE AWAKE [facility]IPOLITO Administration Gabapentin 300 mg 12/07/20 17:30 12/09/20 17:01 Gabapentin 300 Mg Capsule PO 300 mg DAILY PRN Administration Pain Meropenem 1 gm/ Sodium 100 mls @ 100 mls/hr 12/12/20 10:00 Chloride IV Q8H [facility] Nicotine 14 mg 12/08/20 10:15 12/12/20 09:06 Nicotine 14 Mg Patch.Td24 TRANSDERMA 14 mg DAILY [facility]O Administration Oxycodone HCl 5 mg 12/08/20 10:10 12/12/20 09:25 Oxycodone Hcl Immed Release 5 Mg Tablet PO 5 mg BID PRN Administration Pain, Moderate (Pain Scale 4-6 Pharmacy Consult 1 each 12/07/20 09:27 Consult Rx Perform Med Rec MISCELLANE ONCE PRN Consult order Pharmacy Consult 1 each 12/09/20 08:11 Consult Rx Vancomycin Dosing MISCELLANE DAILY PRN Consult order Sodium Chloride 3 ml 12/07/20 16:00 12/12/20 09:08 0.9 % Sodium Chloride Flush 3 Ml Syringe IVFLUSH 3 ml QSHIFT [facility] Administration Urea 15 gm 12/08/20 09:00 12/12/20 09:07 Urea 15 Gm Powder PO 15 gm DAILY HIPOLITO Administration Time Spent With Patient Time: Total time spent is greater than 50% in coordination of care (as doc umented) at patient's floor/unit and/or counseling patient: Time with patient: 15 - 24 minutes
--- NOTE | 2020-12-12 12:37 | P.PNIM_ITS ---
Subjective Subjective Date of Service: 12/12/20 Interval History: Patient resting comfortably offers no acute complaints, fever resolved, patient has no shortness of breath, no chest discomfort, events from yesterday evening noted after 1st unit of blood transfusion patient became tachycardic, tachypneic and febrile,temp 100.8 but patient remained asymptomatic. ROS [employer] no headache, no dizziness CVS no chest pain, no palpitation Respiratory no shortness of breath, no cough offers no urinary symptoms Al[place] catheter in place Physical Exam Vital Signs: Vital Signs: Last Vital Signs Temp 97.8 F 12/12/20 11:23 Pulse 91 12/12/20 11:23 Resp 18 12/12/20 11:23 BP 100/53 L 12/12/20 11:23 Pulse Ox 96 12/12/20 11:23 Body Mass Index 16.9 General, awake, alert, no acute distress Neck is supple, no JVD Lungs clear to auscultation, no wheeze, no rhonchi Cardiovascular regular rate rhythm Abdomen soft, nontender, bowel sounds audible Left hip well-healed scar from hip surgery Lower back dressing intact no drainage noted Extremities no edema [place] clear urine Objective Data Current Medications Generic Name Dose Route Start Last Admin Trade Name Freq PRN Reason Stop Dose Admin Acetaminophen 650 mg 12/11/20 16:21 12/11/20 16:29 Acetaminophen 325 Mg Tablet PO 650 mg Q6H PRN Administration Fever Albuterol/Ipratropium 3 ml 12/07/20 20:00 12/12/20 08:34 Albuterol/Iprat 2.5/0.5mg 3 Ml Ampul.Neb INHALE 3 ml RQ6H WHILE AWAKE HIPOLITO Administration Gabapentin 300 mg 12/07/20 17:30 12/09/20 17:01 Gabapentin 300 Mg Capsule PO 300 mg DAILY PRN Administration Pain Meropenem 1 gm/ Sodium 100 mls @ 100 mls/hr 12/12/20 10:00 12/12/20 11:26 Chloride IV Infused Q8H [facility] Infusion Nicotine 14 mg 12/08/20 10:15 12/12/20 09:06 Nicotine 14 Mg Patch.Td24 TRANSDERMA 14 mg DAILY [facility]O Administration Oxycodone HCl 5 mg 12/08/20 10:10 12/12/20 09:25 Oxycodone Hcl Immed Release 5 Mg Tablet PO 5 mg BID PRN Administration Pain, Moderate (Pain Scale 4-6 Pharmacy Consult 1 each 12/07/20 09:27 Consult Rx Perform Med Rec MISCELLANE ONCE PRN Consult order Pharmacy Consult 1 each 12/09/20 08:11 Consult Rx Vancomycin Dosing MISCELLANE DAILY PRN Consult order Sodium Chloride 3 ml 12/07/20 16:00 12/12/20 09:08 0.9 % Sodium Chloride Flush 3 Ml Syringe IVFLUSH 3 ml QSHIFT [facility] Administration Urea 15 gm 12/08/20 09:00 12/12/20 09:07 Urea 15 Gm Powder PO 15 gm DAILY HIPOLITO Administration Labs CBC & Chem 7: 12/12/20 06:27 12/12/20 06:27 Microbiology Microbiology Results: Microbiology 12/07/20 09:54 Blood - Venous Blood Culture - Final Viridans streptococcus group 12/10/20 13:18 Urine [place] Urine Culture - Final No growth. 12/07/20 09:54 Blood - Venous Blood Culture - Final Assessment and Plan (1) Sacral decubitus ulcer, stage IV: Problem details: He has strep viridans in blood This may be real He has osteomyelitis sacrum and no MRSA seen Status: Acute (2) Acute on chronic anemia: Status: Acute (3) Tobacco use disorder: Status: Acute (4) Leukocytosis: Status: Acute (5) Tachycardia: Status: Acute Assessment and Plan: 70-year-old male presented to check her sodium and was also reporting worsening shortness of breath patient was found to be in new onset of AFib with RVR received Cardizem and converted to sinus tach, inpatient admission was requested for COPD exacerbation and New onset of AFib with RVR Infected sacral decubitus ulcer/osteomyelitis status post I&D by surgery getting daily dressing change , IV Vanco and Zosyn discontinued patient started on IV ertapenem for total 6 weeks Blood culture positive for Streptococcus viridans ,WBC trending down, intermittent fevers will place PICC line on Monday, continue [place] catheter and frequent position change Will discuss wound irrigation by general surgeon Acute on chronic anemia question etiology no GI bleed noted, likely due to acute infection, B12 folate, pending, stool guaiac not obtained, iron studies not consistent with iron deficiency, likely due to acute infection, received 1 unit dose packed RBC hematocrit improved to 8.4, 2nd transfusion held since patient developed fever, tachycardia and tachypnea but remained asymptomatic, transfusion reaction ordered labs pending will hold 2nd unit since event crit improved. Question of afib on admission, no rhythm strip noted to have atrial fibrillation patient evaluated by central supply nurse Dr. Leos he recommend outpatient event recorder but at present patient has no evidence of atrial fibrillation, curren tly in sinus rhythm, recent echocardiogram shows normal LVEF COPD exacerbation improved continue nebulizer, scheduled and as needed, finger oximetry 100% on room air oxygen supplementation as needed Dysuria patient denies urinary symptoms, likely had urinary retention put out 1 L of urine with placement of [place] catheter , UA and culture sensitivity showed no growth, continue [place] catheter for managing Is&Os and also to help in healing of decubitus ulcers. Tobacco use disorder continue nicotine patch Mild hyponatremia continue urea 15 g daily DVT prophylax Lovenox
[2020-12-12 13:22] LABS: Folate 5.9 ng/mL (> or = 4.0); Vitamin B12 520 pg/mL (200-900)
[2020-12-12] MEDS: Acetaminophen 325 MG TABLET 650 MG PO (15:22)
[2020-12-12] MEDS: traZODone HCL 25 MG HALFTAB PO (22:33)
[2020-12-13] VITALS (8 sets, daily range): BP systolic 118–136; BP diastolic 58–67; PULSE 85–103; RESP 16–20; TEMP 36.7–37.4; O2SAT 95–100
[2020-12-13] MEDS: 0.9 % Sodium Chloride Flush 3 ML SYRINGE IVFLUSH ×3 (00:51→15:19)
[2020-12-13 06:37] LABS: Anion Gap 11 (12-20); Blood Urea Nitrogen 39 mg/dL (9-16); Calcium 7.6 mg/dL (8.4-10.2); Carbon Dioxide 26 mmol/L (22-29); Chloride 97 mmol/L (96-108); Estimated Glomerular Filt Rate > 60; Glucose Random 85 mg/dL (60-115); Potassium 4.7 mmol/L (3.3-5.1); Sodium 129 mmol/L (135-145)
[2020-12-13] MEDS: Albuterol/Iprat 2.5/0.5MG 3 ML AMPUL.NEB INHALE ×2 (07:10→13:14)
[2020-12-13] MEDS: oxyCODONE HCl Immed Release 5 MG TABLET PO ×2 (09:40→20:25)
[2020-12-13] MEDS: Nicotine 14 MG PATCH.TD24 TRANSDERMA (09:40)
[2020-12-13] MEDS: Urea 15 GM POWDER PO (09:40)
--- NOTE | 2020-12-13 10:27 | PM.PNGS ---
Subjective Subjective Date of Service: 12/13/20 Interval history: says he is frustrated c/o pain on sacrum no events reported Physical Exam Vital Signs: Vital Signs: Last Vital Signs Temp 98.3 F 12/13/20 07:30 Pulse 85 12/13/20 07:30 Resp 17 12/13/20 07:30 BP 136/63 12/13/20 07:30 Pulse Ox 98 12/13/20 07:30 Body Mass Index 16.9 Const: General: comfortable and no acute distress Resp: Effort & Inspection: normal respiratory effort Back/Spine/Pelvis: Other: deep sacral ulcer, rim of nonviable skin and fat around ulcer, some thick fibrinous exudates coating base of wound, small amount of purulent drainage, but generally healthier tissue Progress Note: A&P Assessment and plan (1) Sacral decubitus ulcer, stage IV: Problem details: He has strep viridans in blood This may be real He has osteomyelitis sacrum and no MRSA seen Status: Acute Assessment and Plan: repeat excisional debridement of nonviable tissue done using scissors to remove rim of undermining skin and subcutaneous tissue all around the wound dry gauze applied into large defect as wound base remains moist foam dressings applied instructed pt to turn side to side for bedsore precautions IV abx wound appears much improved Fall Risk Details Current Medications: Current Medications Generic Name Dose Route Start Last Admin Trade Name Freq PRN Reason Stop Dose Admin Acetaminophen 650 mg 12/11/20 16:21 12/12/20 15:22 Acetaminophen 325 Mg Tablet PO 650 mg Q6H PRN Administration Fever Albuterol/Ipratropium 3 ml 12/07/20 20:00 12/13/20 07:10 Albuterol/Iprat 2.5/0.5mg 3 Ml Ampul.Neb INHALE 3 ml RQ6H WHILE AWAKE HIPOLITO Administration Gabapentin 300 mg 12/07/20 17:30 12/09/20 17:01 Gabapentin 300 Mg Capsule PO 300 mg DAILY PRN Administration Pain Meropenem 1 gm/ Sodium 100 mls @ 100 mls/hr 12/12/20 10:00 12/13/20 09:40 Chloride IV 100 mls/hr Q8H [facility]O Administration Nicotine 14 mg 12/08/20 10:15 12/13/20 09:40 Nicotine 14 Mg Patch.Td24 TRANSDERMA 14 mg DAILY [facility]IPOLITO Administration Pharmacy Consult 1 each 12/07/20 09:27 Consult Rx Perform Med Rec MISCELLANE ONCE PRN Consult order Pharmacy Consult 1 each 12/09/20 08:11 Consult Rx Vancomycin Dosing MISCELLANE DAILY PRN Consult order Sodium Chloride 3 ml 12/07/20 16:00 12/13/20 09:41 0.9 % Sodium Chloride Flush 3 Ml Syringe IVFLUSH 3 ml QSHIFT [facility] Administration Trazodone HCl 25 mg 12/12/20 21:50 12/12/20 22:33 Trazodone Hcl 25 Mg Halftab PO 25 mg BEDTIME PRN Administration Insomnia Urea 15 gm 12/08/20 09:00 12/13/20 09:40 Urea 15 Gm Powder PO 15 gm DAILY HIPOLITO Administration Time Spent With Patient Time: Total time spent is greater than 50% in coordination of care (as documented) at patient's floor/unit and/or counseling patient: Time with patient: 15 - 24 minutes
--- NOTE | 2020-12-13 14:28 | P.PNIM_ITS ---
Subjective Subjective Date of Service: 12/13/20 Interval History: No acute issues overnight, patient offers no acute complaints of pains no fever, no chills, Almonte catheter in place with clear urine , denies pain. 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 no headache, no dizziness CVS no chest pain, no palpitation Respiratory no shortness of breath, no cough offers no urinary symptoms Almonte catheter in place Physical Exam Vital Signs: Vital Signs: Last Vital Signs Temp 99 F 12/13/20 11:30 Pulse 97 12/13/20 11:30 Resp 18 12/13/20 11:30 BP 120/62 12/13/20 11:30 Pulse Ox 98 12/13/20 11:30 Body Mass Index 16.9 General, awake, alert, no acute distress Neck is supple, no JVD Lungs clear to auscultation, no wheeze, no rhonchi Cardiovascular regular rate rhythm Abdomen soft, nontender, bowel sounds audible Left hip well-healed scar from hip surgery Lower back deep sacral ulcer with nonviable skin and fat around ulcer,thick fibrin exudate on the base of the wound noted Extremities no edema Almonte clear urine Objective Data Current Medications Generic Name Dose Route Start Last Admin Trade Name Freq PRN Reason Stop Dose Admin Acetaminophen 650 mg 12/11/20 16:21 12/12/20 15:22 Acetaminophen 325 Mg Tablet PO 650 mg Q6H PRN Administration Fever Albuterol/Ipratropium 3 ml 12/07/20 20:00 12/13/20 13:14 Albuterol/Iprat 2.5/0.5mg 3 Ml Ampul.Neb INHALE 3 ml RQ6H WHILE AWAKE HIPOLITO Administration Gabapentin 300 mg 12/07/20 17:30 12/09/20 17:01 Gabapentin 300 Mg Capsule PO 300 mg DAILY PRN Administration Pain Meropenem 1 gm/ Sodium 100 mls @ 100 mls/hr 12/12/20 10:00 12/13/20 10:55 Chloride IV Infused Q8H HIPOLITO Infusion Nicotine 14 mg 12/08/20 10:15 12/13/20 09:40 Nicotine 14 Mg Patch.Td24 TRANSDERMA 14 mg DAILY HIPOLITO Administration Pharmacy Consult 1 each 12/07/20 09:27 Consult Rx Perform Med Rec MISCELLANE ONCE PRN Consult order Pharmacy Consult 1 each 12/09/20 08:11 Consult Rx Vancomycin Dosing MISCELLANE DAILY PRN Consult order Sodium Chloride 3 ml 12/07/20 16:00 12/13/20 09:41 0.9 % Sodium Chloride Flush 3 Ml Syringe IVFLUSH 3 ml QSHIFT HIPOLITO Administration Trazodone HCl 25 mg 12/12/20 21:50 12/12/20 22:33 Trazodone Hcl 25 Mg Halftab PO 25 mg BEDTIME PRN Administration Insomnia Urea 15 gm 12/08/20 09:00 12/13/20 09:40 Urea 15 Gm Powder PO 15 gm DAILY HIPOLITO Administration Labs CBC & Chem 7: 12/12/20 06:27 12/13/20 05:13 Microbiology Microbiology Results: Microbiology 12/07/20 09:54 Blood - Venous Blood Culture - Final Viridans streptococcus group 12/10/20 13:18 Urine Almonte Port Urine Culture - Final No growth. 12/07/20 09:54 Blood - Venous Blood Culture - Final Assessment and Plan (1) Sacral decubitus ulcer, stage IV: Problem details: He has strep viridans in blood This may be real He has osteomyelitis sacrum and no MRSA seen Status: Acute (2) Acute on chronic anemia: Status: Acute (3) Tobacco use disorder: Status: Acute (4) Leukocytosis: Status: Acute (5) Moderate protein-calorie malnutrition: Status: Acute Assessment and Plan: 70-year-old male presented to check her sodium and was also reporting worsening shortness of breath patient was found to be in new onset of AFib with RVR received Cardizem and converted to sinus tach, inpatient admission was requested for COPD exacerbation and New onset of AFib with RVR Infected sacral decubitus ulcer/osteomyelitis status post I&D by surgery getting daily dressing change , today underwent bedside debridement by Dr. Mcgee, wound bed appeared Continue IV meropenem day 2, will need 6 weeks of IV ertapenem upon discharge will place PICC line at a.m. Blood culture positive for Streptococcus viridans ,WBC trending down, , continue Almonte catheter and frequent position change Acute on chronic anemia question etiology no GI bleed noted, likely due to acute infection, B12 folate, pending, stool guaiac not obtained, iron studies not consistent with iron deficiency, likely due to acute infection, received 1 unit dose packed RBC hematocrit improved to 8.4, 2nd transfusion held since patient developed fever, tachycardia and tachypnea but remained asymptomatic, tr ansfusion reaction ordered labs pending will dc 2nd unit since hct improved. Will repeat CBC at a.m. Question of afib on admission, no rhythm strip noted to have atrial fibrillation patient evaluated by software requirements engineer Dr. Leos he recommend outpatient event recorder but at present patient has no evidence of atrial fibrillation, currently in sinus rhythm, recent echocardiogram shows normal LVEF COPD exacerbation improved continue nebulizer, scheduled and as needed, finger oximetry 100% on room air oxygen supplementation as needed Dysuria patient denies urinary symptoms, likely had urinary retention put out 1 L of urine with placement of Almonte catheter , UA and culture sensitivity showed no growth, continue Almonte catheter for managing Is&Os and also to help in healing of decubitus ulcers. Tobacco use disorder continue nicotine patch Mild hyponatremia continue urea 15 g daily Moderate protein calorie malnutrition continue supplements DVT prophylax Lovenox
[2020-12-13] MEDS: traZODone HCL 25 MG HALFTAB PO (20:13)
[2020-12-14] VITALS (8 sets, daily range): BP systolic 112–154; BP diastolic 53–86; PULSE 68–96; RESP 18–20; TEMP -12.6–37.6; O2SAT 94–100
[2020-12-14] MEDS: 0.9 % Sodium Chloride Flush 3 ML SYRINGE IVFLUSH ×4 (01:08→20:08)
[2020-12-14] MEDS: Albuterol/Iprat 2.5/0.5MG 3 ML AMPUL.NEB INHALE (07:08)
[2020-12-14 08:56] LABS: MANUAL DIFF FLAG NO
[2020-12-14 09:07] LABS: Basophils Percent Auto 0.2 % (0-2); Eosinophils Absolute Auto 0.6 X10*3/uL (0.0-0.4); Eosinophils Percent Auto 4.7 % (0-4); Hematocrit 27.1 % (42-52); Hemoglobin 9.2 g/dl (14.0-18.0); Imm Gran Abs Auto 0.07 X10*3/uL (0.00-0.03); Imm Gran Pct Auto 0.6 % (0.0-0.4); Lymphocytes Absolute Auto 2.1 X10*3/uL (1.2-4.9); Lymphocytes Percent Auto 16.7 % (20-40); Mean Corpuscular HGB Conc 33.9 g/dl (31.0-36.0); Mean Corpuscular Hemoglobin 31.2 pg (27.0-33.0); Mean Corpuscular Volume 91.9 fL (80-98); Mean Platelet Volume 9.1 fL (9.4-12.4); Monocytes Absolute Auto 1.1 X10*3/uL (0.1-1.2); Monocytes Percent Auto 8.5 % (2-11); Neutrophils Absolute Auto 8.8 X10*3/uL (2.0-8.3); Neutrophils Percent Auto 69.3 % (45-73); Platelet Count 323 X10*3/uL (160-400); Red Blood Count 2.95 X10*6/uL (4.60-5.80); White Blood Count 12.7 X10*3/uL (4.8-10.8)
[2020-12-14] MEDS: Nicotine 14 MG PATCH.TD24 TRANSDERMA (09:11)
[2020-12-14] MEDS: oxyCODONE HCl Immed Release 5 MG TABLET PO ×2 (09:11→20:05)
[2020-12-14] MEDS: Urea 15 GM POWDER PO (09:11)
[2020-12-14 09:27] LABS: Anion Gap 10 (12-20); Blood Urea Nitrogen 38 mg/dL (9-16); Carbon Dioxide 26 mmol/L (22-29); Chloride 95 mmol/L (96-108); Creatinine Clr Calc Pharmacy 70.1; Estimated Glomerular Filt Rate > 60; Glucose Random 104 mg/dL (60-115); Potassium 4.6 mmol/L (3.3-5.1); Sodium 126 mmol/L (135-145)
--- NOTE | 2020-12-14 11:56 | MHC.CLN ---
RE: CONSULT AND F/U PO INTAKE SLIGHT DECLINE OVER WEEKEND 25/50% DIET RX: REGULAR-APPROPRIATE PT RECEIVING ENSURE TID, PROSOURCE BID AND ARNOLD BID TO INCREASE KCALS AND PROMOTE WOUND HEALING SUPPLEMENTS PROVIDE 1330KCALS (83% EST KCALS NEEDS),95G PROTEIN (1.8G/KG) MAXIMUM NUTRITION PO SUPPORT FOLLOWING
--- NOTE | 2020-12-14 12:18 | P.PNIM_ITS ---
Subjective Subjective Date of Service: 12/14/20 Interval History: Patient feeling better this a.m. sitting on chair offers no acute complaints, wishes to social service regarding discharge plan, no acute issues overnight. ROS GEN no chills CHILD MONITOR no headache, no dizziness CVS no chest pain, no palpitation Respiratory no shortness of breath, no cough offers no urinary symptoms Physical Exam Vital Signs: Vital Signs: Last Vital Signs Temp 99.6 F 12/14/20 11:19 Pulse 93 12/14/20 11:19 Resp 18 12/14/20 11:19 BP 117/57 L 12/14/20 11:19 Pulse Ox 100 12/14/20 11:19 Body Mass Index 16.9 General, awake, alert, no acute distress Neck is supple, no JVD Lungs clear to auscultation, no wheeze, no rhonchi Cardiovascular regular rate rhythm Abdomen soft, nontender, bowel sounds audible Left hip well-healed scar from hip surgery Lower back deep sacral ulcer with nonviable skin and fat around ulcer,thick fibrin exudate on the base of the wound noted Extremities no edema Almonte clear urine Objective Data Current Medications Generic Name Dose Route Start Last Admin Trade Name Freq PRN Reason Stop Dose Admin Acetaminophen 650 mg 12/11/20 16:21 12/12/20 15:22 Acetaminophen 325 Mg Tablet PO 650 mg Q6H PRN Administration Fever Albuterol/Ipratropium 3 ml 12/07/20 20:00 12/14/20 07:08 Albuterol/Iprat 2.5/0.5mg 3 Ml Ampul.Neb INHALE 3 ml RQ6H WHILE AWAKE HIPOLITO Administration Gabapentin 300 mg 12/07/20 17:30 12/09/20 17:01 Gabapentin 300 Mg Capsule PO 300 mg DAILY PRN Administration Pain Meropenem 1 gm/ Sodium 100 mls @ 100 mls/hr 12/12/20 10:00 12/14/20 11:29 Chloride IV Infused Q8H HIPOLITO Infusion Nicotine 14 mg 12/08/20 10:15 12/14/20 09:11 Nicotine 14 Mg Patch.Td24 TRANSDERMA 14 mg DAILY HIPOLITO Administration Oxycodone HCl 5 mg 12/13/20 21:00 12/14/20 09:11 Oxycodone Hcl Immed Release 5 Mg Tablet PO 5 mg BID HIPOLITO Administration Pharmacy Consult 1 each 12/07/20 09:27 Consult Rx Perform Med Rec MISCELLANE ONCE PRN Consult order Pharmacy Consult 1 each 12/09/20 08:11 Consult Rx Vancomycin Dosing MISCELLANE DAILY PRN Consult order Sodium Chloride 3 ml 12/07/20 16:00 12/14/20 09:11 0.9 % Sodium Chloride Flush 3 Ml Syringe IVFLUSH 3 ml QSHIFT HIPOLITO Administration Trazodone HCl 25 mg 12/12/20 21:50 12/13/20 20:13 Trazodone Hcl 25 Mg Halftab PO 25 mg BEDTIME PRN Administration Insomnia Urea 15 gm 12/08/20 09:00 12/14/20 09:11 Urea 15 Gm Powder PO 15 gm DAILY HIPOLITO Administration Labs CBC & Chem 7: 12/14/20 08:42 12/14/20 08:42 Microbiology Microbiology Results: Microbiology 12/07/20 09:54 Blood - Venous Blood Culture - Final Viridans streptococcus group 12/10/20 13:18 Urine Almonte Port Urine Culture - Final No growth. 12/07/20 09:54 Blood - Venous Blood Culture - Final Assessment and Plan (1) Sacral decubitus ulcer, stage IV: Problem details: He has strep viridans in blood This may be real He has osteomyelitis sacrum and no MRSA seen Status: Acute (2) Moderate protein-calorie malnutrition: Status: Acute (3) Acute on chronic anemia: Status: Acute (4) Tobacco use disorder: Status: Acute (5) Leukocytosis: Status: Acute (6) Tachycardia: Status: Acute (7) Hyponatremia: Status: Acute Assessment and Plan: 70-year-old male presented to check her sodium and was also reporting worsening shortness of breath patient was found to be in new onset of AFib with RVR received Cardizem and converted to sinus tach, inpatient admission was requested for COPD exacerbation and New onset of AFib with RVR Infected sacral decubitus ulcer/osteomyelitis status post I&D by surgery getting daily dressing change underwent bedside debridement by Dr. Mcgee,on 12/13 wound bed appeared better On IV meropenem day 3, for 6 weeks of IV ertapenem, patient can have a PICC line placed today, he does not need a repeat blood cultures, discussed with Dr. Ornelas. Blood culture 1/2 positive for Streptococcus viridans ,WBC trending down, , continue Almonte catheter for wound healing and recommend frequent position change Acute on chronic anemia question etiology no GI bleed noted, likely due to acute infection, B12 folate, within normal range, iron studies not consistent with iron deficiency, likely due to acute infection, received 1 unit dose packed RBC hematocrit improved to 8.4, 2nd transfusion held since patient developed fever, tachycardia and tachypnea but remained asymptomatic, transfusion reaction ordered labs pending , since hematocrit stable does not require secondary unit . Question of afib on admission, no rhythm strip noted to have atrial fibrillation patient evaluated by conservation worker Dr. Leos he recommend outpatient event recorder but at present patient has no evidence of atrial fibrillation, currentl y in sinus rhythm, recent echocardiogram shows normal LVEF COPD exacerbation improved continue nebulizer, scheduled and as needed, finger oximetry 100% on room air oxygen supplementation as needed Dysuria patient denies urinary symptoms, likely had urinary retention put out 1 L of urine with placement of Almonte catheter , UA and culture sensitivity showed no growth, continue Almonte catheter for managing Is&Os and also to help in healing of decubitus ulcers. Tobacco use disorder continue nicotine patch Mild hyponatremia continue urea 15 g daily Moderate protein calorie malnutrition continue supplements DVT prophylax Lovenox
--- NOTE | 2020-12-14 12:55 | MHC.CM.PN ---
Per MD, Patient likely ready for STR tomorrow. CM met with Patient and obtained his SNF choices. CM awaits response.
--- NOTE | 2020-12-14 13:22 | MHC.CM.PN ---
CM met with Patient to present him with his SNF options based on insurance and bed availability and Patient has chosen [facility] [place] [facility].JUAN CARLOS has informed SNF, who will begin authorization process. is aware.
--- NOTE | 2020-12-14 15:05 | HO.PICC ---
PICC Line Insertion NPICC Diagnosis: OSTEOMYELITIS Indication: [facility] IV ANTIBIOTICS Pertinent Labs: REVIEWED Technique: Following informed consent including risks, benefits and alternatives and using sterile technique including cap and mask, sterile gown, glove and drape, the RIGHT arm was prepped and draped in the usual sterile fashion of full barrier technique with CHG. Following completion of Idalia Protocol the skin and soft tissues were anesthetized with 1% Lidocaine plain. Using ultrasound guidance, CEPHALIC vein access was obtained IN SINGLE ATTEMPT BY THIS RN. Over an 0.018 wire through peel-away sheath, a 4-MOSOTHO, SINGLE LUMEN, PASV PICC line was positioned. Catheter length is 43 CM internal length, 0 CM external length, for a total trimmed length of 43 CM. The procedure was performed in ROOM 272. Tip verification was performed by Evan Solis with Ebony 3CG. Tip located in SVC. Ultrasound was used to document vein patency and for needle entry. A formal ultrasound picture and cardiac rhythm strip was recorded. Vascular Washer Carcass has released the line for use and it is currently dressed with a StatLock, Tegaderm, and CHG disc. Verification has been performed for blood return and line patency. Arm Circumference: 21 CM Equipment: HEALBE POWER PICC SOLO Catheter Type: 4 MOSOTHO SINGLE LUMEN PASV Lot #: [id number]
[2020-12-14 20:01] LABS: Haptoglobin 317 mg/dL (43-212)
[2020-12-14] MEDS: traZODone HCL 25 MG HALFTAB PO (20:05)
[2020-12-15 03:49] VITALS: BP 122/58; PULSE 91; RESP 18; TEMP 36.6; O2SAT 98
[2020-12-15 07:41] VITALS: BP 113/55; PULSE 83; RESP 17; TEMP 37.1; O2SAT 99
[2020-12-15] MEDS: Urea 15 GM POWDER PO ×2 (08:14→11:28)
[2020-12-15] MEDS: Nicotine 14 MG PATCH.TD24 TRANSDERMA (08:14)
[2020-12-15] MEDS: 0.9 % Sodium Chloride Flush 3 ML SYRINGE IVFLUSH (08:15)
--- NOTE | 2020-12-15 11:21 | MHC.CM.PN ---
Patient has been medically cleared for dc to SNF today. Patient has been accepted at his first choice SNF- [facility] [place] and he will dc there today at 2PM, via [facility]. Patient is aware of and in agreement with the dc plan and CM addressed second IMM with Patient, providing him with the original and a copy has been placed on the chart.Per Patient's request, CM called /HCP/[facility] at [phone], but was only able to leave a detailed message regarding the dc plan.
[2020-12-15 12:00] VITALS: RESP 18
--- NOTE | 2020-12-15 12:36 | PM.DS ---
DS: Providers Provider Date of Service: 12/15/20 Date of admission: 12/07/20 14:31 Primary care physician: Dio Ibarra MD Consults: 12/07/20 17:30 Consult to Cardiology Routine Consulting Provider: Fuad Leos Reason for consultation: afib with RVR 12/08/20 07:39 Consult to General Surgery Routine Consulting Provider: Ry Case Reason for consultation: sacral ulcer assess for debridement 12/09/20 08:13 Consult to Infectious Diseases Routine Consulting Provider: Maria Isabel Ornelas Reason for consultation: infected sacral ulcer DS: Diagnosis Discharge Diagnosis (1) Sacral decubitus ulcer, stage IV: Status: Acute Problem details: He has strep viridans in blood This may be real He has osteomyelitis sacrum and no MRSA seen (2) Moderate protein-calorie malnutrition: Status: Acute (3) Acute on chronic anemia: Status: Acute (4) Tobacco use disorder: Status: Acute (5) Leukocytosis: Status: Acute (6) Tachycardia: Status: Acute (7) Hyponatremia: Status: Acute DS: Medications Discharge Medications Home Medications: Home Medications Medication Instructions Recorded Confirmed gabapentin 300 mg capsule 300 mg PO DAILY PRN 08/12/20 12/07/20 Ure-Na 1 packet PO DAILY 12/07/20 12/07/20 Previous Rx's Medication Instructions Recorded acetaminophen 325 mg PO Q4H PRN 30 Days #240 tab 11/19/20 ertapenem 1 g IV DAILY 39 Days #39 ea 12/15/20 nicotine 14 mg TRANSDERMAL DAILY #15 ea 12/15/20 DS: Summary Hospital Course Hospital Course: History of presenting illness Chief Complaint: sob 70-year-old male presented with shortness of breath , patient has severe COPD at baseline, patient reported he came to emergency room to check his sodium level, patient was also reporting worsening shortness of breath for last few days, denies any cough or sputum, denies any chest pain or sick contact, in the ER found to have AFib new onset patient was given Cardizem IV and patient was switched to sinus tachycardia, denies any fever ,chest pain or palpitation, Patient was found to have leukocytosis, inpatient admission was requested for new onset of AFib and COPD exacerbation patient was found to have leukocytosis etiology not clear, UA was negative, chest x-ray shows emphysematous changes but no infiltrate, patient has sacral ulcer without any obvious drainage but shows some necrotic debris, Hospital course 70-year-old male presented to check his sodium and was also reporting worsening shortness of breath patient was found to be in new onset of AFib with RVR received Cardizem and converted to sinus tach, inpatient admission was requested for COPD exacerbation and New onset of AFib with RVR. Infected sacral decubitus ulcer/osteomyelitis status post I&D by surgery, status post repeat debridement by Dr. Mcgee,on 12/13 wound bed appeared better s/p IV meropenem ,now being discharged to short-term rehab for 6 weeks of IV ertapenem, last antibiotic date 01/23/2021 ,has a PICC line Blood culture 1/2 positive for Streptococcus viridans ,WBC trending down, , continue Almonte catheter for wound healing and recommend frequent position change, will need weekly CBC, SGOT and BMP while on ertapenem. Acute on chronic anemia question etiology no GI bleed noted, likely due to acute infection, B12 and folate, within normal range, iron studies not consistent with iron deficiency, received 1 unit dose packed RBC hematocrit improved to 8.4, 2nd transfusion held since patient developed fever, tachycardia and tachypnea but remained asymptomatic, negative workup for transfusion reaction patient hematocrit remains stable. Question of afib on admission, no rhythm strip noted to have atrial fibrillation patient evaluated by wood heel fitter machine Dr. Leos he recommend outpatient event recorder but at present patient has no evidence of atrial fibrillation, currently in sinus rhythm, recent echocardiogram showed normal LVEF COPD exacerbation resolved Dysuria patient denies urinary symptoms, likely had urinary retention put out 1 L of urine with placement of Almonte catheter , UA and culture sensitivity showed no growth, continue Almonte catheter for managing Is&Os and also to help in healing of decubitus ulcers. Will need voiding trial once Almonte discontinue Tobacco use disorder continue nicotine patch Mild hyponatremia continue urea 15 g daily, recommend fluid restriction 1.5 L, sodium dropped to 126 today patient asymptomatic received extra dose of urea 15 g follow BMP in 1 week outpatient follow-up with Dr. Hernandez Moderate protein calorie malnutrition continue supplements Time Spent with Patient Time attestation: Total time spent providing and/or coordinating discharge services: Discharge coordination time: Greater than 30 minutes Physical Exam Vital Signs: Vital Signs: Last Vital Signs Temp 98.8 F 12/15/20 07:41 Pulse 83 12/15/20 07:41 Resp 17 12/15/20 07:41 BP 113/55 L 12/15/20 07:41 Pulse Ox 99 12/15/20 07:41 Body Mass Index 16.9 General, awake, alert, no acute distress Neck is supple, no JVD Lungs clear to auscultation, no wheeze, no rhonchi Cardiovascular regular rate rhythm Abdomen soft, nontender, bowel sounds audible Left hip well-healed scar from recent hip surgery Lower back deep sacral ulcer with some fibrinous exudate coating the base of the wound generally healthy tissue improved since admission. Extremities no edema Almonte clear urine DS: Data Data Completed and Pending Completed studies during hospitalization [Text1]: Procedures Replacement of Left Hip Joint, Femoral Surface with Synthetic Substitute, Uncemented, Open Approach (11/12/20) Transfusion of Nonautologous Red Blood Cells into Peripheral Vein, Percutaneous Approach (11/12/20) Labs on day of discharge: Laboratory Results - last 24 hr 12/11/20 12/11/20 05:36 17:05 Haptoglobin 317 H Post-Trans Add Testing No Pathologist Comment [facility] SN Discharge Plan Discharge Patient Disposition: Xfer SNF [facility] Dio Ibarra MD [Primary Care Provider] - Discharge Medications: New nicotine 14 mg/24 hr Patch 24 Hour 14 mg transdermal DAILY Qty: 15 RF: 0 ertapenem 1 gram recon soln 1 g IV DAILY 39 Days Qty: 39 RF: 0 Continued acetaminophen 325 mg Tablet 325 mg PO Q4H PRN (Reason: Pain, Mild (Pain Scale 1-3)) 30 Days Qty: 240 RF: 0 Ure-Na 15 gram powder in packet 1 packet PO DAILY RF: 0 gabapentin 300 mg capsule 300 mg PO DAILY PRN (Reason: Pain) RF: 0 Discontinued lisinopril 40 mg tablet 40 mg PO DAILY Qty: 90 RF: 1 enoxaparin 40 mg/0.4 mL Syringe 40 mg subcut DAILY 60 Days Qty: 24 RF: 0 doxycycline hyclate 100 mg capsule 1 cap PO BID RF: 0 ibuprofen 600 mg tablet 1 tab PO TID PRN (Reason: Pain (Scale Score 1-3)) RF: 0 Discharge Orders: Discharge Order (Routine); Ordered 12/15/20 Ordered By: Faby Kelley Diet: regular diet Activity on Discharge: As tolerated Stand Alone Forms: Patient Portal Discharge page Activity Restrictions/Additional Instructions: DRESSING CHANGES: CHANGE DAILY AND PRN DRY SPONGE/STERILE DRESSING TO WOUND BASE FOLLOWED BY FOAM DRESSING CONTINUE REPOSITIONING Q2H Care Plan Goals: Take all medications as prescribed Health Concerns: Infected sacral decubitus ulcer/acute on chronic anemia, hyponatremia, moderate protein calorie malnutrition/take protein supplements, follow BMP ,SGOT And CBC Q weekly restrict by mouth fluid to 1.5 L daily. Position change every 2 hours and dressing change as above Plan of Treatment: Continue IV ertapenem through January 23 follow-up with primary care physician and Dr. Ornelas
[2020-12-15 12:48] LABS: COVID-19 Test Negative (Negative)
== END 2020-12-15 14:10 | disposition skilled nursing facility (03) | DRG 981 ==
LOC: HO.ED 11:32 → HO.EDOVER 14:36 → HO.IMC 15:03
PROVIDERS: Admitting Provider Internal Medicine; Emergency Provider Emergency Medicine; PCP Internal Medicine; Visit Provider Hospitalist
DX: J44.0 Chronic obstructive pulmonary disease with (acute) lower respiratory infection (principal); L89.154 Pressure ulcer of sacral region, stage 4; J18.9 Pneumonia, unspecified organism; E87.1 Hypo-osmolality and hyponatremia; E87.2 Acidosis; E44.0 Moderate protein-calorie malnutrition; Z68.1 Body mass index [BMI] 19.9 or less, adult; M86.9 Osteomyelitis, unspecified; I48.91 Unspecified atrial fibrillation; J44.1 Chronic obstructive pulmonary disease with (acute) exacerbation; F17.210 Nicotine dependence, cigarettes, uncomplicated; Z71.6 Tobacco abuse counseling; R91.1 Solitary pulmonary nodule; Z96.642 Presence of left artificial hip joint; Z20.822 Contact with and (suspected) exposure to COVID-19; Z88.0 Allergy status to penicillin; Z88.5 Allergy status to narcotic agent; Z79.899 Other long term (current) drug therapy
CPT/HCPCS: 36415; 36573; 71045; 74177; 80048; 80202; 81001; 81003; 82140; 82607; 82746; 83010; 83540; 83605; 83615; 83690; 83880; 84484; 85007; 85025; 85027; 85610; 85730; 86078; 86850; 86900; 86923; 87040; 87086; 87205; 87635; 93005; 93971; 94640; 94644; 96365; 96366; 96375; 97110; 97116; 97162; 97166; 97530; 97535; 99024; 99285; C1751; C1758; J0456; J1650; J2185; J2543; J2930; J3370; J3475; P9016; Q9967